=== PATIENT | male | born 1975 | race Caucasian/White ===

== ENCOUNTER 2016-11-18 06:23 | Inpatient (IN) | payer OTHER ==
[2016-11-18] MEDS ORDERED: ACETAMINOPHEN IV (For NPO) 1,000 MG in EMPTY BAG 1 BAG IVPB STA (06:44)
[2016-11-18] MEDS ORDERED: FAMOTIDINE 20 MG/2 ML VIAL IV STA (06:45)
[2016-11-18] MEDS ORDERED: ONDANSETRON 4 MG/2 ML VIAL IVP STA (06:45)
--- NOTE | 2016-11-18 06:47 | ED ---
General Adult HPI - General Source: patient, RN notes reviewed Mode of arrival: ambulatory Limitations: no limitations <Luther Gonzalez - Last Filed: 11/18/16 06:57> <Zaki Eric - Last Filed: 11/18/16 10:15> - General Chief complaint: Nausea/Vomiting/Diarrhea Stated complaint: Nausea,fever,diarrhea Time Seen by Provider: 11/18/16 06:41 - History of Present Illness Initial comments: Patient is a pleasant 41-year-old male presenting to the emergency Department with diarrhea. Onset of symptoms was around 2 days ago. Patient has had nausea with some dry heaves. Patient has only mild abdominal discomfort. Patient has had diarrhea approximate 4 times daily. Patient didnotice fever just prior to arrival. No history of chronic abdominal problems. Patient has had some myalgias. (Luther Gonzalez) - Related Data Home Medications Medication Instructions Recorded Confirmed Fexofenadine/Pseudoephedrine 1 tab PO BID PRN 11/18/16 11/18/16 [Lauren-D 12 Hour Tablet] Allergies Allergy/AdvReac Type Severity Reaction Status Date / Time No Known Allergies Allergy Verified 07/08/16 07:50 Review of Systems ROS Other: All systems not noted in ROS Statement are negative. Constitutional: Reports: fever, chills Eyes: Denies: eye pain ENT: Denies: ear pain Respiratory: Denies: cough Cardiovascular: Denies: chest pain Endocrine: Reports: fatigue Gastrointestinal: Reports: abdominal pain, nausea, vomiting, diarrhea Genitourinary: Denies: dysuria Musculoskeletal: Denies: back pain Skin: Denies: rash Neurological: Denies: headache <Luther Gonzalez - Last Filed: 11/18/16 06:57> ROS Other: All systems not noted in ROS Statement are negative. <Zaki Eirc - Last Filed: 11/18/16 10:15> ROS Statement: Those systems with pertinent positive or pertinent negative responses have been documented in the HPI. Past Medical History Past Medical History: Pneumonia, Seizure Disorder Additional Past Medical History / Comment(s): EPILEPSY CHILD-HAS'NT BEEN ON MEDS FOR SEIZURES SINCE AGE 11 OR 12. chronic etoh abuse, seizure related to alcohol withdrawal, pneumonia /SEPSIS IN 2013 WAS VENTILATED, PSORIASES, ADHD, .PANCREATITIS. History of Any Multi-Drug Resistant Organisms: None Reported Past Surgical History: Orthopedic Surgery Additional Past Surgical History / Comment(s): RIGHT ANKLE, PLATES AND SCREWS Past Anesthesia/Blood Transfusion Reactions: No Reported Reaction Past Psychological History: ADD/ADHD, Anxiety, Depression Smoking Status: Current every day smoker Past Alcohol Use History: None Reported Additional Past Alcohol Use History / Comment(s): STARTED SMOKING AGE 14 1PPD SMOKING CESSATION BOOKLET GIVEN TO PT. DRINKS 1 FIFTH OF WHISKEY PER DAY. Past Drug Use History: Marijuana - Past Family History Father Family Medical History: Myocardial Infarction ([place]) Additional Family Medical History / Comment(s): PULMOPNARY FIBROSIS AND HEART PROBLEMS Mother Family Medical History: Cancer Additional Family Medical History / Comment(s): SKIN CANCER, DEPRESSION. AGORAPHOBIA <Luther Gonzalez - Last Filed: 11/18/16 06:57> General Exam Limitations: no limitations General appearance: alert, in no apparent distress Head exam: Present: atraumatic Eye exam: Present: normal appearance, PERRL ENT exam: Present: normal oropharynx Neck exam: Present: normal inspection Respiratory exam: Present: normal lung sounds bilaterally Cardiovascular Exam: Present: regular rate, normal rhythm GI/Abdominal exam: Present: soft, tenderness (Mild diffuse tenderness), normal bowel sounds. Absent: distended, guarding, rebound, rigid, pulsatile mass Extremities exam: Present: normal inspection Neurological exam: Present: alert Psychiatric exam: Present: normal affect, normal mood Skin exam: Absent: rash <Luther Gonzalez - Last Filed: 11/18/16 06:57> Course <Luther Gonzalez - Last Filed: 11/18/16 06:57> <Zaki Eric - Last Filed: 11/18/16 10:15> Vital Signs 11/18/16 11/18/16 11/18/16 06:27 07:41 09:11 Temperature 101 F H 101.9 F H 98.5 F Pulse Rate 95 88 86 Respiratory 18 18 16 Rate Blood Pressure 137/81 135/74 115/68 O2 Sat by Pulse 98 99 98 Oximetry 11/18/16 10:02 Temperature Pulse Rate 80 Respiratory 15 Rate Blood Pressure 118/68 O2 Sat by Pulse 98 Oximetry - Reevaluation(s) Reevaluation #1: 11/18/16 06:[address] Eric. Computed tomography scan not ordered at this time secondary to minimal tenderness. (Luther Gonzalez) Reevaluation #2: 11/18/16 10:15 I did discuss the findings with the patient does admit to drinking chronically. (Zaki Eric) Medical Decision Making <Luther Gonzalez - Last Filed: 11/18/16 06:57> - Lab Data Result diagrams: 11/18/16 06:55 11/18/16 06:55 - Radiology Data Radiology results: report reviewed (I did review the imaging and report or is evidence of infiltrate in the right lower upper lung.), image reviewed <Zaki Eric - Last Filed: 11/18/16 10:15> - Medical Decision Making I did a long discussion with the patient regarding the findings he does have pancreatitis as well as pneumonia. He will be admitted I did discuss the case with Dr. Jean (Zaki Eric) - Lab Data Lab Results 11/18/16 11/18/16 11/18/16 Range/Units 06:55 06:55 06:55 WBC 1.9 L* (3.8-10.6) k/uL RBC 4.33 (4.30-5.90) m/uL Hgb 14.2 (13.0-17.5) gm/dL Hct 42.4 (39.0-53.0) % MCV 97.8 (80.0-100.0) fL MCH 32.7 (25.0-35.0) pg MCHC 33.5 (31.0-37.0) g/dL RDW 15.5 (11.5-15.5) % Plt Count 26 L* (150-450) k/uL Neutrophils % 72 % Lymphocytes % 12 % Monocytes % 12 % Eosinophils % 1 % Basophils % 0 % Neutrophils # 1.4 (1.3-7.7) k/uL Lymphocytes # 0.2 L (1.0-4.8) k/uL Monocytes # 0.2 (0-1.0) k/uL Eosinophils # 0.0 (0-0.7) k/uL Basophils # 0.0 (0-0.2) k/uL Manual Slide Review Performed Large Platelets Present RBC Morphology Normal PT (9.0-12.0) sec INR (<1.1) APTT (22.0-30.0) sec Sodium 129 L (137-145) mmol/L Potassium 4.2 (3.5-5.1) mmol/L Chloride 100 (98-107) mmol/L Carbon Dioxide 20 L (22-30) mmol/L Anion Gap 9 mmol/L BUN 9 (9-20) mg/dL Creatinine 0.62 L (0.66-1.25) mg/dL Est GFR (MDRD) Af Amer >60 (>60 ml/min/1.73 sqM) Est GFR (MDRD) Non-Af >60 (>60 ml/min/1.73 sqM) Glucose 116 H (74-99) mg/dL Plasma Lactic Acid Shine 1.6 (0.7-2.0) mmol/L Calcium 7.7 L (8.4-10.2) mg/dL Magnesium (1.6-2.3) mg/dL Total Bilirubin 1.9 H (0.2-1.3) mg/dL AST 209 H (17-59) U/L ALT 68 (21-72) U/L Alkaline Phosphatase 155 H (38-126) U/L Total Protein 8.1 (6.3-8.2) g/dL Albumin 3.3 L (3.5-5.0) g/dL Amylase (30-110) U/L Lipase (23-300) U/L Serum Alcohol mg/dL 11/18/16 11/18/16 Range/Units 06:55 08:40 WBC (3.8-10.6) k/uL RBC (4.30-5.90) m/uL Hgb (13.0-17.5) gm/dL Hct (39.0-53.0) % MCV (80.0-100.0) fL MCH (25.0-35.0) pg MCHC (31.0-37.0) g/dL RDW (11.5-15.5) % Plt Count (150-450) k/uL Neutrophils % % Lymphocytes % % Monocytes % % Eosinophils % % Basophils % % Neutrophils # (1.3-7.7) k/uL Lymphocytes # (1.0-4.8) k/uL Monocytes # (0-1.0) k/uL Eosinophils # (0-0.7) k/uL Basophils # (0-0.2) k/uL Manual Slide Review Large Platelets RBC Morphology PT 15.5 H (9.0-12.0) sec INR 1.6 (<1.1) APTT 31.9 H (22.0-30.0) sec Sodium (137-145) mmol/L Potassium (3.5-5.1) mmol/L Chloride (98-107) mmol/L Carbon Dioxide (22-30) mmol/L Anion Gap mmol/L BUN (9-20) mg/dL Creatinine (0.66-1.25) mg/dL Est GFR (MDRD) Af Amer (>60 ml/min/1.73 sqM) Est GFR (MDRD) Non-Af (>60 ml/min/1.73 sqM) Glucose (74-99) mg/dL Plasma Lactic Acid Shine (0.7-2.0) mmol/L Calcium (8.4-10.2) mg/dL Magnesium 1.6 (1.6-2.3) mg/dL Total Bilirubin (0.2-1.3) mg/dL AST (17-59) U/L ALT (21-72) U/L Alkaline Phosphatase (38-126) U/L Total Protein (6.3-8.2) g/dL Albumin (3.5-5.0) g/dL Amylase 107 (30-110) U/L Lipase 701 H (23-300) U/L Serum Alcohol <10 mg/dL Disposition <Luther Gonzalez - Last Filed: 11/18/16 06:57> <Zaki Eric - Last Filed: 11/18/16 10:15> Clinical Impression: Acute pancreatitis, Pneumonia, Neutropenia, Thrombocytopenia, Alcohol dependence, Gastritis Disposition: ADMITTED IP TO THIS [facility] Condition: Stable
[2016-11-18] MEDS: SODIUM CHLORIDE 0.9% 500 ML IV SCH ×3 (07:07→10:01)
[2016-11-18 07:21] LABS: Basophils % (A) 0 %; CH 32.9; CHCM 33.8; Eosinophils % (A) 1 %; HCT 42.4 % (39.0-53.0); HDW 2.59; HGB 14.2 gm/dL (13.0-17.5); Luc # (Auto) 0.06; Luc % (Auto) 3; Lymphocytes # (A) 0.2 k/uL (1.0-4.8); Lymphocytes % (A) 12 %; MCH 32.7 pg (25.0-35.0); MCHC 33.5 g/dL (31.0-37.0); MCV 97.8 fL (80.0-100.0); Mean Platelet Volume 9.4; Monocytes # (A) 0.2 k/uL (0-1.0); Monocytes % (A) 12 %; Neutrophils # (A) 1.4 k/uL (1.3-7.7); Neutrophils % (A) 72 %; RBC 4.33 m/uL (4.30-5.90); RDW 15.5 % (11.5-15.5); WBC (Perox) 1.82
[2016-11-18 07:24] LABS: ALT 68 U/L (21-72); AST 209 U/L (17-59); Alkaline Phosphatase 155 U/L (38-126); Anion Gap 9 mmol/L; Blood Urea Nitrogen 9 mg/dL (9-20); Calcium 7.7 mg/dL (8.4-10.2); Carbon Dioxide 20 mmol/L (22-30); Chloride 100 mmol/L (98-107); Glucose 116 mg/dL (74-99); INR 1.6 (<1.1); Non-African American GFR(MDRD) >60 (>60 ml/min/1.73 sqM); Partial Thromboplastin Time 31.9 sec (22.0-30.0); Potassium 4.2 mmol/L (3.5-5.1); Prothrombin Time 15.5 sec (9.0-12.0); Sodium 129 mmol/L (137-145); Total Bilirubin 1.9 mg/dL (0.2-1.3); Total Protein 8.1 g/dL (6.3-8.2)
[2016-11-18 07:33] LABS: WBC 1.9 k/uL (3.8-10.6)
[2016-11-18 07:35] LABS: Large Platelets Present; Manual Review Performed; RBC Morphology Normal
--- NOTE | 2016-11-18 07:55 | XR ---
EXAMINATION TYPE: XR chest 2V DATE OF EXAM: 11/18/2016 7:17 AM COMPARISON: Prior chest x-ray March 11, 2016. HISTORY: Cough. TECHNIQUE: Frontal and lateral views of the chest are obtained. FINDINGS: There is suspicious airspace opacity in the anterior inferior right upper lobe confirmed o n 2 views. Left lung is clear no pleural effusion or pneumothorax is seen bilaterally.. The cardiac silhouette size is mildly enlarged on current study less prominent than prior. The osseous structur es are intact. IMPRESSION: New suspicious right upper lobe anterior inferior pneumonic infiltrate.
--- NOTE | 2016-11-18 07:59 | XR ---
EXAMINATION TYPE: XR abdomen 1V DATE OF EXAM: 11/18/2016 7:17 AM CLINICAL HISTORY: Abdominal pain. TECHNIQUE: 2 upright KUB images of the abdomen are obtained. COMPARISON: Abdominal x-ray December 24, 2015. FINDINGS: There is some paucity of small bowel gas. Visualized gas is seen in nondistended stomach an d predominantly nondistended colonic loops. Rounded densities right upper quadrant are of uncertain e tiology, possible gallstones. No pneumoperitoneum is present. Osseous structures are intact. IMPRESSION: Overall nonspecific likely nonobstructive bowel gas pattern.
[2016-11-18 09:02] LABS: Alcohol <10 mg/dL; Amylase 107 U/L (30-110); Magnesium 1.6 mg/dL (1.6-2.3)
[2016-11-18] MEDS ORDERED: PIPERACILLIN-TAZOBACTAM 3.375 GM in DEXTROSE/WATER 1 50ML.BAG IVPB STA (09:29)
[2016-11-18] MEDS ORDERED: PNEUMONIA PROTOCOL UTILIZED 1 EACH MISC PO PRN (10:15)
[2016-11-18] MEDS ORDERED: LEVOFLOXACIN 750MG-D5W PMX 750 MG in DEXTROSE/WATER 1 150ML.BAG IVPB STA (10:15)
[2016-11-18] MEDS ORDERED: THIAMINE 100 MG/ML 2 ML VIAL IM STA (10:18)
[2016-11-18] MEDS ORDERED: NICOTINE 21MG/24HR PATCH TRANSDERM STA (10:19)
[2016-11-18] MEDS ORDERED: SODIUM CHLORIDE 0.9% 1,000 ML IV STA (10:20)
[2016-11-18 11:07] LABS: Appearance,Urine Clear (Clear); Bilirubin,Urine Negative (Negative); Glucose,Urine (UA) Negative (Negative); Ketones,Urine Negative (Negative); Leukocyte Esterase,Urine Negative (Negative); Nitrite,Urine Negative (Negative); Protein,Urine Negative (Negative); Specific Gravity,Urine 1.013 (1.001-1.035); UA Billing (MACRO vs. MICRO) CHEM
[2016-11-18] MEDS: LORazepam 2 MG/ML SYRINGE IV PRN (13:50)
[2016-11-18] MEDS ORDERED: traMADol 50 MG TAB PO PRN (14:52)
[2016-11-18] MEDS: AZITHROMYCIN 500 MG TAB PO SCH (15:22)
[2016-11-18] MEDS: HYDROcodone/APAP 7.5-325MG 1 EACH TAB PO PRN (15:22)
[2016-11-18] MEDS: SODIUM CHLORIDE 0.9% 1,000 ML IV SCH ×2 (15:24→22:49)
[2016-11-18] MEDS ORDERED: PIPERACILLIN-TAZOBACTAM 3.375 GM in DEXTROSE/WATER 1 50ML.BAG IVPB SCH (16:00)
[2016-11-18] MEDS: cefTRIAXone 2,000 MG in SODIUM CHLORIDE 0.9% 100 ML IVPB SCH (16:19)
[2016-11-18] MEDS: THIAMINE 100 MG TAB PO SCH (16:19)
[2016-11-18] MEDS: ONDANSETRON 4 MG/2 ML VIAL IVP PRN (16:23)
--- NOTE | 2016-11-18 19:05 | HP ---
DATE OF ADMISSION: Patient is a 41-year-old gentleman who came in with complaints of cough with yellowish sputum production that has been going on for about 3 days with fever and chills along with nausea, dry heaving and abdominal pain in the epigastric area. Patient is an alcoholic; still drinks about 6 beers or more a day. Patient is pancytopenic because of excessive alcohol use. Minimally low sodium. Patient's lipase is elevated, but it is a nonspecific elevation. I do not believe patient has pancreatitis. Patient has epigastric abdominal sharp pain consistent with alcoholic gastritis. Patient was found to have right middle lobe pneumonia. Patient was complaining of some shortness of breath as well with pleuritic chest pain, sharp, about 9/10 in severity; worsens with inspiration on the right side. Patient was found to have right middle lobe pneumonia. REVIEW OF SYSTEMS: CONSTITUTIONAL: No fever, no malaise, no fatigue. HEENT: No recent visual problems or hearing problems. Denied any sore throat. CARDIOVASCULAR: No chest pain, orthopnea, PND, no palpitations, no syncope. PULMONARY: As described in HPI. GASTROINTESTINAL: No diarrhea, no nausea, no vomiting, no abdominal pain. Normoactive bowel sounds. NEUROLOGICAL: No headaches, no weakness, no numbness. HEMATOLOGICAL: Denies any bleeding or petechiae. GENITOURINARY: Denies any burning micturition, frequency, or urgency. MUSCULOSKELETAL/RHEUMATOLOGICAL: Denies any joint pain, swelling, or any muscle pain. ENDOCRINE: Denies any polyuria or polydipsia. The rest of the 14 point review of systems is negative. Home medications include fexofenadine and pseudoephedrine. Past medical history is significant for: 1. Alcohol withdrawal seizures. 2. Pneumonias in the past. 3. Orthopedic surgery. 4. ADD. 5. Anxiety. 6. Depression. Patient continues to smoke a pack per day; has been smoking since age of 14. Alcohol use as mentioned above. One fifth of whiskey along with 6 beers a day. As per the patient, he quit drinking a couple days ago without any withdrawals because he is feeling sick. Occasionally uses marijuana. FAMILY HISTORY: Father had myocardial infarction, pulmonary fibrosis and heart problems. Mother had cancer. PHYSICAL EXAMINATION: VITAL SIGNS: Temperature 98.7 pulse of 82, respiratory rate of 16. Blood pressure is 114/70. Saturating at 98% on room air. GENERAL: The patient is alert and oriented x3, not in any acute distress. Well developed, well nourished. HEENT: Pupils are round and equally reacting to light. EOMI. No scleral icterus. No conjunctival pallor. Normocephalic, atraumatic. No pharyngeal erythema. No thyromegaly. CARDIOVASCULAR: S1 and S2 present. No murmurs, rubs, or gallops. PULMONARY: Crackles in the right lower lung bases with bronchophony and egophony in the right inferoposterior lung lopez. ABDOMEN: Soft, nontender, nondistended, normoactive bowel sounds. No palpable organomegaly. MUSCULOSKELETAL: No joint swelling or deformity. EXTREMITIES: No cyanosis, clubbing, or pedal edema. NEUROLOGICAL: Gross neurological examination did not reveal any focal deficits. SKIN: No rashes. LABORATORY DATA: CBC and comprehensive metabolic profile are abnormal for low WBC count of 1900, platelet count of 26,000. Patient is probably anemic as well. Although patient is hemo-concentrated, I believe, at this point of time, because of which we are not appreciating his anemia. I believe his hemoglobin is going to drop tomorrow. Chest x-ray as mentioned above. ASSESSMENT AND PLAN: 1. Sepsis secondary to right middle lobe pneumonia. I do not believe patient will need to be treated her healthcare-associated pneumonia. Patient most probably has pneumococcal pneumonia. His previous antibiotics Zosyn and levofloxacin will be discontinued. Patient will be started on ceftriaxone and azithromycin. Sputum cultures will be obtained. 2. Mild nonspecific elevation of lipase. I do not believe patient has pancreatitis at this point of time. Patient will be started on diet. 3. Acute alcoholic hepatitis with mildly elevated bilirubin and AST. 4. Alcohol abuse. Counseling was provided. 5. Alcohol withdrawal. Patient does not have any withdrawals at this point of time. My suspicion is low that he is going to have withdrawals, but we will watch for any withdrawals. Thiamine, multivitamin supplementation. Patient will be started on Protonix IV b.i.d. for his gastritis. Patient will be started on IV fluids at 125 mL per hour. 6. Pancytopenia secondary to bone marrow suppression from chronic alcoholism. Counseling was provided regarding that. Part of this leukopenia is probably because of sepsis as well. Patient has no primary care physician.
[2016-11-18] MEDS: PANTOPRAZOLE 40 MG/10 ML VIAL IVP SCH (20:38)
[2016-11-18] MEDS ORDERED: FAMOTIDINE 20 MG TAB PO SCH (21:00)
[2016-11-19] MEDS: ONDANSETRON 4 MG/2 ML VIAL IVP PRN (02:55)
[2016-11-19] MEDS: HYDROcodone/APAP 7.5-325MG 1 EACH TAB PO PRN ×3 (02:55→22:27)
[2016-11-19] MEDS: LORazepam 2 MG/ML SYRINGE IV PRN (07:03)
[2016-11-19] MEDS: SODIUM CHLORIDE 0.9% 1,000 ML IV SCH (07:06)
--- NOTE | 2016-11-19 08:20 | XR ---
EXAMINATION TYPE: XR chest 2V DATE OF EXAM: 11/19/2016 6:39 AM COMPARISON: Prior chest x-ray 18 November 2016 HISTORY: Fever, abnormal chest x-ray, pneumonia TECHNIQUE: Frontal and lateral views of the chest are obtained. FINDINGS: Airspace disease persists in the right upper lobe. Heart size is borderline increased. Min imal bandlike area of increased density present bilaterally in the left lower chest may reflect atele ctasis rather than airspace disease. No pneumothorax or pleural effusion. Pulmonary vascularity and h azra are stable. IMPRESSION: Correlate for right upper lobe pneumonia. Additional findings above, follow-up to resolu tion.
[2016-11-19] MEDS: PANTOPRAZOLE 40 MG/10 ML VIAL IVP SCH ×2 (08:21→22:15)
[2016-11-19] MEDS: AZITHROMYCIN 500 MG TAB PO SCH (08:21)
[2016-11-19] MEDS: cefTRIAXone 2,000 MG in SODIUM CHLORIDE 0.9% 100 ML IVPB SCH (08:22)
[2016-11-19] MEDS ORDERED: LEVOFLOXACIN 750 MG TAB PO SCH (11:00)
[2016-11-19] MEDS: THIAMINE 100 MG TAB PO SCH ×2 (11:19→16:23)
[2016-11-19 13:11] LABS: ALT 59 U/L (21-72); AST 165 U/L (17-59); Alkaline Phosphatase 115 U/L (38-126); Anion Gap 7 mmol/L; Aty Lym Flag Slight; Blood Urea Nitrogen 8 mg/dL (9-20); CH 32.5; CHCM 32.8; Calcium 7.1 mg/dL (8.4-10.2); Carbon Dioxide 16 mmol/L (22-30); Chloride 104 mmol/L (98-107); Glucose 104 mg/dL (74-99); HCT 41.5 % (39.0-53.0); HDW 2.67; HGB 13.2 gm/dL (13.0-17.5); MCH 31.8 pg (25.0-35.0); MCHC 31.9 g/dL (31.0-37.0); MCV 99.6 fL (80.0-100.0); Macrocytosis Slight; Magnesium 1.6 mg/dL (1.6-2.3); Mean Platelet Volume 9.9; Non-African American GFR(MDRD) >60 (>60 ml/min/1.73 sqM); RBC 4.17 m/uL (4.30-5.90); RDW 15.6 % (11.5-15.5); Sodium 127 mmol/L (137-145); Total Bilirubin 1.5 mg/dL (0.2-1.3); Total Protein 6.8 g/dL (6.3-8.2); WBC (Perox) 1.37
[2016-11-19 13:51] LABS: Add Differential Manual Differential
[2016-11-19 14:00] LABS: Manual Review Performed; Nucleated Red Blood Cells 0 /100 WBC (0-0); Total Cells Counted 100
[2016-11-19 16:13] LABS: WBC 1.3 k/uL (3.8-10.6)
--- NOTE | 2016-11-19 17:55 | P.PN ---
Subjective Date of service 11/19/2016. Progress note being dictated for Dr. Madison. Interval history: This 41-year-old gentleman admitted with sepsis, right middle lobe pneumonia-possibly bilateral, acute alcoholic hepatitis, alcohol withdrawal , pancytopenia, pancreatitis and multiple other medical issues. Continues on IV fluid hydration, antibiotics. Chest x-ray noted. Labs pending. Maintained on CIWA protocol with no seizure activity/DTs reported. Poor diet intake ,no nausea, vomiting reported. Mostly nonproductive cough with minimal sputum production. Objective - Vital Signs Vital signs: Vital Signs Temp 98.4 F 11/19/16 07:00 Pulse 80 11/19/16 07:00 Resp 20 11/19/16 07:00 BP 122/76 11/19/16 07:00 Pulse Ox 98 11/19/16 07:00 Intake & Output 11/18/16 11/19/16 11/19/16 18:59 06:59 18:59 Intake Total 2000 540 Balance 2000 540 Intake: Amount of Fluid Infused ( 1500 ml) Oral 500 540 Other: Voiding Method Toilet # Voids 1 # Bowel Movements 1 - Exam PHYSICAL EXAM: VITAL SIGNS: As above GENERAL: [Well-nourished, Sitting up in bed, tired appearing] HEENT: [Pupils equal conjunctiva normal.] NECK: [Supple, no JVD] RESPIRATORY EFFORT:[Mildly increased] LUNGS: [Bibasilar crackles, greater on the left, bronchophony the right lung] CARDIOVASCULAR regular S1 and S2, no murmurs rubs or gallops, no edema GI: [Abdomen soft, mild diffuse tenderness, left lower quadrant pain, positive bowel sounds.] PSYCH: [Alert and oriented -3, mood and affect normal.] NEURO: [No focal deficits, moves all 4 extremities, strength and sensation grossly intact.] - Labs CBC & Chem 7: 11/19/16 12:29 11/19/16 12:29 Labs: Microbiology - Last 24 Hours (Table) 11/18/16 10:55 Urine Culture - Preliminary Urine,Voided Assessment and Plan Plan: 1. [Sepsis secondary to right middle, possibly bilateral pnumonia]. 2. [Atelectasis]. 3. [Mild nonspecific elevation of lipase, doubt pancreatitis at this time, in a patient with history of pancreatitis]. 4. [Acute alcoholic hepatitis with mildly elevated bilirubin and AST in a patient with history of liver cirrhosis]. 5. [Alcohol abuse,alcohol dependence]. 6. [Pancytopenia secondary to bone marrow suppression related to chronic alcoholism]. 7. Hyponatremia]. 8. ADHD, ADD 9. History of nicotine dependence Plan: Continue on current medication regime , antibiotics,CIWA protocol, nebulized bronchodilators, monitoring and symptomatic treatment. Aggressive pulmonary toileting. Increase ambulation as tolerated. Continue on IV fluid hydration, as patient's appetite remains poor. Labs pending. Social work consult as patient continues to be high risk for readmissions and assistance with alcohol rehab. The impression and plan of care has been dictated as directed. : I performed a H&P examination of this patient and discussed the same with the dictator. I agree with the dictator's note. Any additional findings/opinions/ etc. will be noted.
[2016-11-20] MEDS: HYDROcodone/APAP 7.5-325MG 1 EACH TAB PO PRN ×3 (05:42→17:14)
[2016-11-20 08:51] LABS: Aty Lym Flag Marked; CH 32.6; CHCM 33.2; HCT 41.1 % (39.0-53.0); HDW 2.69; HGB 13.2 gm/dL (13.0-17.5); MCH 31.7 pg (25.0-35.0); MCHC 32.2 g/dL (31.0-37.0); MCV 98.5 fL (80.0-100.0); Macrocytosis Slight; Mean Platelet Volume 9.6; RBC 4.17 m/uL (4.30-5.90); RDW 15.5 % (11.5-15.5); WBC (Perox) 1.82
[2016-11-20 08:57] LABS: INR 1.6 (<1.1); Prothrombin Time 15.4 sec (9.0-12.0)
[2016-11-20 08:58] LABS: WBC 1.7 k/uL (3.8-10.6)
[2016-11-20 09:09] LABS: Anion Gap 8 mmol/L; Blood Urea Nitrogen 8 mg/dL (9-20); Calcium 7.3 mg/dL (8.4-10.2); Carbon Dioxide 17 mmol/L (22-30); Chloride 101 mmol/L (98-107); Glucose 95 mg/dL (74-99); Non-African American GFR(MDRD) >60 (>60 ml/min/1.73 sqM); Potassium 4.3 mmol/L (3.5-5.1); Sodium 126 mmol/L (137-145)
[2016-11-20] MEDS: cefTRIAXone 2,000 MG in SODIUM CHLORIDE 0.9% 100 ML IVPB SCH (09:25)
[2016-11-20] MEDS: AZITHROMYCIN 500 MG TAB PO SCH (09:26)
[2016-11-20] MEDS: PANTOPRAZOLE 40 MG/10 ML VIAL IVP SCH (09:26)
--- NOTE | 2016-11-20 10:03 | PN ---
DATE OF SERVICE: 11/19/2016 This 41-year-old gentleman who was admitted with sepsis secondary to right middle lobe pneumonia is being closely monitored. I have seen and evaluated the patient along with the nurse practitioner. Please refer to the nurse practitioner notes and impression documented as a scribe for further information and prognosis.
[2016-11-20 10:15] LABS: Add Differential Manual Differential
[2016-11-20 10:24] LABS: Nucleated Red Blood Cells 0 /100 WBC (0-0); Total Cells Counted 100
[2016-11-20] MEDS: MULTIVITAMINS, THERA 1 EACH TAB PO SCH (11:18)
[2016-11-20] MEDS: THIAMINE 100 MG TAB PO SCH ×2 (11:18→16:37)
[2016-11-20] MEDS: FOLIC ACID 1 MG TAB PO SCH (11:19)
[2016-11-20] MEDS ORDERED: LORATADINE-PSEUDOEPH 5-120 MG 1 EACH TAB.ER.12H PO PRN (11:54)
[2016-11-20] MEDS ORDERED: ACETAMINOPHEN TAB 325 MG TAB PO PRN (12:23)
[2016-11-20] MEDS: PIPERACILLIN-TAZOBACTAM 3.375 GM in DEXTROSE/WATER 1 50ML.BAG IVPB SCH (14:03)
--- NOTE | 2016-11-20 15:14 | P.CNPUL ---
History of Present Illness Consult date: 11/20/16 Requesting physician: Estephanie Madison Reason for consult: abnormal CXR/CT (Right middle lobe pneumonia) Chief complaint: Shortness of breath, cough and congestion History of present illness: This is a pleasant 41-year-old gentleman who has no current primary care physician. He has a history of seizure disorders and did have epilepsy as a child but has not been on any medications as an adult. Has has a history of alcoholism and seizure related alcohol withdrawals in the past. He had trach as much as a fifth of whiskey a day but states he is down to just 6 beers daily. He's had a history of pancreatitis, ADHD, psoriasis. The patient did have significant pneumonia requiring intubation mechanical ventilation with sepsis back in 2012. We have seen the patient at that time apparently. Since then he denied having any recurrent episodes of pneumonia or hospitalizations. He has a current smoker and has been smoking since age of 14. He has not been on any inhalers at home. No oxygen. He presented here on 11/18/2016 with complaints of increasing shortness of breath cough and congestion. He also had some nausea without vomiting, abdominal discomfort and diarrhea. His chest x- ray does show evidence of a right middle lobe pneumonia. There is also noted increased density/atelectasis in the left lung base. Sputum culture is pending. Blood cultures reveal no growth after 48 hours. Urine culture reveals no growth. His AST was elevated at 209. His lipase is elevated at 836. He also has pancytopenia current WBC 1.7 platelet count 22,000 and he's been treated with Zosyn and azithromycin. He is hyponatremic with a current sodium of 126. He is seen today in consultation. He is awake and alert in no acute distress. He states he is breathing easier today as compared to yesterday. He continues with a loose productive cough of yellow sputum. He remains febrile currently at 101.3. He is maintaining good O2 saturations in the upper 90s on room air. Review of Systems 14 point review of system was conducted. All negative other than mentioned in HPI. Past Medical History Past Medical History: Pneumonia, Seizure Disorder Additional Past Medical History / Comment(s): EPILEPSY CHILD-HAS'NT BEEN ON MEDS FOR SEIZURES SINCE AGE 11 OR 12. chronic etoh abuse, seizure related to alcohol withdrawal as well as delirium tremors, pneumonia /SEPSIS IN 2012 WAS VENTILATED, PSORIASES, PANCREATITIS. History of Any Multi-Drug Resistant Organisms: None Reported Past Surgical History: Orthopedic Surgery Additional Past Surgical History / Comment(s): RIGHT ANKLE- PLATES AND SCREWS, gastro tube, tracheostomy. Past Anesthesia/Blood Transfusion Reactions: No Reported Reaction Past Psychological History: ADD/ADHD, Anxiety, Depression Additional Psychological History / Comment(s): Pt resides with his spouse. He is independent. Smoking Status: Current every day smoker Past Alcohol Use History: None Reported Additional Past Alcohol Use History / Comment(s): STARTED SMOKING AGE 14 1/2 [employer]. Pt now down to drinking 6 beers in a day. Last drank 11/16/16 before feeling ill. Past Drug Use History: Marijuana Additional Drug Use History / Comment(s): Pt states he will smoke marijuana on occasion but not daily. - Past Family History Father Family Medical History: Myocardial Infarction (PR) Additional Family Medical History / Comment(s): PULMOPNARY FIBROSIS AND HEART PROBLEMS. Father at the age of 65yrs from multiple medical problems. Mother Family Medical History: Cancer Additional Family Medical History / Comment(s): SKIN CANCER, DEPRESSION. AGORAPHOBIA. Mother is 63 yrs old. Medications and Allergies Home Medications Medication Instructions Recorded Confirmed Type Fexofenadine/Pseudoephedrine 1 tab PO BID PRN 11/18/16 11/18/16 History [Lauren-D 12 Hour Tablet] Allergies Allergy/AdvReac Type Severity Reaction Status Date / Time No Known Allergies Allergy Verified 07/08/16 07:50 Physical Exam Vitals: Vital Signs Temp Pulse Resp BP Pulse Ox 11/20/16 11:24 101.3 F H 11/20/16 07:00 102.1 F H 91 20 127/74 96 11/19/16 23:56 19 11/19/16 23:30 100.7 F H 11/19/16 22:32 101.6 F H 86 19 127/81 98 11/19/16 18:58 88 18 11/19/16 17:06 100.8 F H 11/19/16 15:22 100.0 F H Intake and Output 11/19/16 11/20/16 11/20/16 22:59 06:59 14:59 Intake Total 100 Output Total 400 Balance -300 Intake: IV 100 cefTRIAXone 2,000 mg In 100 Sodium Chloride 0.9% 100 ml @ 100 mls/hr IVPB Q24HR [facility] Rx#:[id number] Output: Urine 400 Other: Voiding Method Toilet Toilet # Voids 1 2 GENERAL EXAM: Alert, active, comfortable in no apparent distress. HEAD: Normocephalic. EYES: Normal reaction of pupils, equal size. NOSE: Clear with pink turbinates. THROAT: No erythema or exudates. NECK: No masses, no JVD. CHEST: No chest wall deformity. LUNGS: Equal air entry with rhonchi in the right mid lung. CVS: S1 and S2 normal with no audible murmurs, regular rhythm. ABDOMEN: No hepatosplenomegaly, normal bowel sounds, no guarding or rigidity. SPINE: No scoliosis or deformity SKIN: No rashes CENTRAL NERVOUS SYSTEM: No focal deficits, tone is normal in all 4 extremities. Extremities: There is no peripheral edema. No clubbing, no cyanosis. Peripheral pulses are intact. Results - Laboratory Findings CBC and BMP: 11/20/16 07:35 11/20/16 07:35 PT/INR, D-dimer PT 15.4 sec (9.0-12.0) H 11/20/16 07:35 INR 1.6 (<1.1) 11/20/16 07:35 Abnormal lab findings: Abnormal Labs 11/19/16 11/19/16 11/20/16 12:29 12:29 07:35 WBC 1.3 L* 1.7 L* RBC 4.17 L 4.17 L RDW 15.6 H Plt Count 19 L* 22 L* Neutrophils # (Manual) 1.0 L 1.0 L Lymphocytes # (Manual) 0.2 L 0.5 L PT Sodium 127 L Carbon Dioxide 16 L BUN 8 L Creatinine 0.50 L Glucose 104 H Calcium 7.1 L Total Bilirubin 1.5 H AST 165 H Albumin 2.5 L Lipase 836 H 11/20/16 11/20/16 07:35 07:35 WBC RBC RDW Plt Count Neutrophils # (Manual) Lymphocytes # (Manual) PT 15.4 H Sodium 126 L Carbon Dioxide 17 L BUN 8 L Creatinine 0.55 L Glucose Calcium 7.3 L Total Bilirubin AST Albumin Lipase - Diagnostic Findings Chest x-ray: image reviewed (Right middle lobe pneumonia) Assessment and Plan Plan: Impression: #1 Dyspnea, multifactorial, secondary to a right middle lobe pneumonia suspect community-acquired. Cannot rule out aspiration pneumonia on as the patient utilizes excessive alcohol daily. Also possible exacerbation of suspected chronic obstructive pulmonary disease with chronic and ongoing nicotine addiction. #2 Chronic and ongoing tobacco dependence. #3 Chronic and ongoing alcoholism. #4 Pancytopenia secondary to alcoholic liver disease. #5 Elevated liver enzymes secondary to alcoholism. #6 Hyponatremia secondary to excessive alcohol intake. #7 History of ventilatory dependent respiratory failure secondary to pneumonia// sepsis in 2013. #8 History of ADD. #9 Pancreatitis, current lipase 836. Plan: The patient was seen and evaluated by Dr. Leigh. His chest x-ray and labs were reviewed. He does have a right mid lung pneumonia. He may benefit from bronchoscopy to rule out right middle lobe syndrome if his chest x-ray does not clear with current antibiotics. We'll continue with the current medications. We'll repeat his chest x-ray and labs in the a.m. The patient does remain in CIWA protocol and will continue to observe for signs of delirium tremens. He remains in seizure precautions as well. He is educated regarding the importance of complete smoking cessation as well as alcohol cessation. We will contact continue to follow him closely in make further recommendations based on his clinical status.
[2016-11-20] MEDS ORDERED: IPRATROPIUM-ALBUTEROL 3 ML NEB INHALATION PRN (15:46)
[2016-11-20] MEDS: methylPREDNISolone SOD SUCCI 40 MG/ML 1 ML VIAL IV SCH (16:36)
[2016-11-20] MEDS: PANTOPRAZOLE 40 MG TABLET PO SCH (16:42)
[2016-11-20 16:57] LABS: Hemoglobin A1C 4.6 % (4.2-6.1)
[2016-11-20 17:33] LABS: Glucose,Whole Blood 90 mg/dL (75-99)
[2016-11-20] MEDS: INSULIN LISPRO (humaLOG) 300 UNIT/3 ML VIAL SQ SCH ×2 (17:34→22:00)
[2016-11-20] MEDS ORDERED: INFLUENZA VACCINE (3YR+) 60 MCG/0.5 ML SYRINGE IM ONE (18:06)
[2016-11-20] MEDS: SYMBICORT 160-4.5 MCG INHALER INHALATION SCH (19:51)
--- NOTE | 2016-11-20 20:39 | PN ---
DATE OF SERVICE: 11/20/2016 This 41-year-old gentleman who was admitted with possibly right middle lobe pneumonia, possibly community-acquired. Patient also had a possibility of aspiration pneumonia. The patient running fever yesterday, not responding to antibiotics. The white count was also low with leukopenia and Bicytopenia with platelet 22 which could be secondary to alcohol as well. Sodium is 126. Antibiotics have been change and Dr. Leigh also has been consulted. Past medical history reviewed. REVIEW OF SYSTEMS: CARDIOVASCULAR: No angina. RESPIRATORY: As mentioned earlier. GASTROINTESTINAL: As mentioned earlier. : No dysuria. Nervous system: No numbness, weakness. Current medications are reviewed and include: 1. Tylenol 650 q.6h p.r.n. 2. Ozone 7.5 q6h. 3. DuoNeb q.i.d. and p.r.n. 4. Zithromax 500 mg daily. 5. Symbicort 160/4.5 two puffs b.i.d. 6. Folic acid 1 mg daily. 7. Humalog. 8. Claritin-D. 9. Ativan. 10. Solu-Medrol 40 mg IV q8h. 11. Multivitamins one p.o. daily. 12. Zofran. 13. Protonix. 14. Zosyn. PHYSICAL EXAMINATION: Patient is alert and oriented times three. Pulse 79, blood pressure 103/74, respirations 20, temperature 101.3, pulse ox 94% on room air. HEENT: Conjunctivae normal. Oral mucosa moist. NECK: No jugular venous distention. No carotid bruit. No lymph node enlargement. CARDIOVASCULAR: S1, S2 muffled. No S3, no S4. RESPIRATORY: Breath sounds diminished at the bases. A few scattered rhonchi and crackles. Expiratory wheezing also present. ABDOMEN: Soft, nontender. No mass palpable. LEGS: No edema. No swelling. Nervous system: Higher functions as mentioned earlier. Moves all four limbs. No focal deficits. LYMPHATICS: No lymph nodes palpable in the neck, axillae or groin. SKIN: no ulcer, rash or bleeding. Labs: WBC is 1.7, hemoglobin 13.2, platelets 22. INR is 1.6. Sodium is 126, total bili is 1.3, AST is 165, calcium 7.3. ASSESSMENT: 1. Right middle lobe pneumonia, possibly aspiration with possible sepsis, present on admission with continued fever. 2. Chronic obstructive pulmonary disease, acute exacerbation. 3. History of nicotine dependence. 4. Atelectasis. 5. Mild nonspecific elevation of lipase with a history of chronic pancreatitis. 6. History of alcoholic hepatitis. 7. History of alcohol abuse. 8. History of Bicytopenia secondary from alcohol. 9. Hypernatremia 10. Attention deficit disorder/attention deficit hyperactivity disorder. 11. History of nicotine dependence. RECOMMENDATIONS AND DISCUSSION: In this 41-year-old gentleman who presented with multiple complex medical issues, we will monitor the patient closely, continue the current medications, continue with symptomatic treatment as mentioned earlier. Continue with the Zosyn. Repeat labs. Cultures. Pulmonary consultation with Dr. Leigh. DVT prophylaxis. Guarded prognosis because of multiple complex medical issues. Discussed with the patient who understands and agrees. Further recommendations to follow.
[2016-11-20 21:45] LABS: Glucose,Whole Blood 113 mg/dL (75-99)
[2016-11-21] MEDS: methylPREDNISolone SOD SUCCI 40 MG/ML 1 ML VIAL IV SCH ×4 (00:35→23:12)
[2016-11-21] MEDS: PIPERACILLIN-TAZOBACTAM 3.375 GM in DEXTROSE/WATER 1 50ML.BAG IVPB SCH ×5 (00:39→23:12)
[2016-11-21] MEDS: SYMBICORT 160-4.5 MCG INHALER INHALATION SCH ×2 (07:16→19:27)
[2016-11-21 07:17] LABS: Glucose,Whole Blood 148 mg/dL (75-99)
[2016-11-21 08:49] LABS: Aty Lym Flag Marked; CH 31.8; CHCM 31.1; HCT 48.5 % (39.0-53.0); HDW 2.73; HGB 15.3 gm/dL (13.0-17.5); Hypochromasia Slight; MCH 32.3 pg (25.0-35.0); MCHC 31.4 g/dL (31.0-37.0); MCV 102.6 fL (80.0-100.0); Macrocytosis Slight; RBC 4.73 m/uL (4.30-5.90); RDW 15.4 % (11.5-15.5); WBC (Perox) 1.93
[2016-11-21] MEDS: AZITHROMYCIN 500 MG TAB PO SCH (08:49)
[2016-11-21] MEDS: PANTOPRAZOLE 40 MG TABLET PO SCH ×2 (08:49→16:49)
[2016-11-21] MEDS: INSULIN LISPRO (humaLOG) 300 UNIT/3 ML VIAL SQ SCH ×4 (08:49→21:56)
[2016-11-21] MEDS: HYDROcodone/APAP 7.5-325MG 1 EACH TAB PO PRN (08:50)
[2016-11-21 08:56] LABS: INR 1.6 (<1.1); Prothrombin Time 15.9 sec (9.0-12.0)
[2016-11-21 09:12] LABS: Anion Gap 8 mmol/L; Blood Urea Nitrogen 10 mg/dL (9-20); Calcium 7.5 mg/dL (8.4-10.2); Carbon Dioxide 17 mmol/L (22-30); Chloride 103 mmol/L (98-107); Glucose 198 mg/dL (74-99); Non-African American GFR(MDRD) >60 (>60 ml/min/1.73 sqM); Potassium 4.1 mmol/L (3.5-5.1); Sodium 128 mmol/L (137-145)
[2016-11-21 11:50] LABS: Glucose,Whole Blood 198 mg/dL (75-99)
[2016-11-21 11:52] LABS: WBC 1.9 k/uL (3.8-10.6)
--- NOTE | 2016-11-21 12:21 | XR ---
EXAMINATION TYPE: XR chest 1V portable DATE OF EXAM: 11/21/2016 11:34 AM COMPARISON: 11/19/2016 INDICATION: Pneumonia TECHNIQUE: Single frontal view of the chest is obtained. FINDINGS: The heart size is normal. The pulmonary vasculature is normal. There is an infiltrating along the minor fissure on the right. A right upper lobe base consolidation appears to be present which can be compatible with pneumonia. This is denser than comparison. IMPRESSION: 1. Correlate for right upper lobe base pneumonia.
[2016-11-21] MEDS: MULTIVITAMINS, THERA 1 EACH TAB PO SCH (12:33)
[2016-11-21] MEDS: THIAMINE 100 MG TAB PO SCH ×2 (12:33→16:49)
[2016-11-21] MEDS: FOLIC ACID 1 MG TAB PO SCH (12:33)
[2016-11-21] MEDS ORDERED: RX INFO: IV CONTRAST WAS GIVEN 1 EACH MISC MISCELLANE PRN (13:04)
--- NOTE | 2016-11-21 13:10 | P.PN ---
Subjective Principal diagnosis: Right middle lobe pneumonia This is a pleasant 41-year-old gentleman who has no current primary care physician. He has a history of seizure disorders and did have epilepsy as a child but has not been on any medications as an adult. Has has a history of alcoholism and seizure related alcohol withdrawals in the past. He had trach as much as a fifth of whiskey a day but states he is down to just 6 beers daily. He's had a history of pancreatitis, ADHD, psoriasis. The patient did have significant pneumonia requiring intubation mechanical ventilation with sepsis back in 2012. We have seen the patient at that time apparently. Since then he denied having any recurrent episodes of pneumonia or hospitalizations. He has a current smoker and has been smoking since age of 14. He has not been on any inhalers at home. No oxygen. He presented here on 11/18/2016 with complaints of increasing shortness of breath cough and congestion. He also had some nausea without vomiting, abdominal discomfort and diarrhea. His chest x- ray does show evidence of a right middle lobe pneumonia. There is also noted increased density/atelectasis in the left lung base. Blood cultures reveal no growth after 72 hours. Urine culture reveals no growth. He is seen again today 11/21/2016 in follow-up. He is awake and alert in no acute distress. He states his cough is lessened. He remains dyspneic on minimal exertion. Chest x-ray continues to show right middle lobe pneumonia. Sputum culture is positive for Aleyda albicans. Most of his labs are still pending but his platelet has dropped to 18,000. The patient is quite anxious to go home. Objective - Vital Signs Vital signs: Vital Signs Temp 98.1 F 11/21/16 07:00 Pulse 81 11/21/16 07:00 Resp 16 11/21/16 08:00 BP 116/72 11/21/16 07:00 Pulse Ox 95 11/21/16 07:16 Intake & Output 11/20/16 11/21/16 11/21/16 18:59 06:59 18:59 Intake Total 150 Output Total 400 450 Balance -250 -450 Intake: IV 100 cefTRIAXone 2,000 mg In 100 Sodium Chloride 0.9% 100 ml @ 100 mls/hr IVPB Q24HR [facility] Rx#:[id number] Intake, IV Titration 50 Amount Piperacillin-Tazobactam 3 50 .375 gm In Dextrose/Water 1 50ml.bag @ 12.5 mls/hr IVPB Q6HR [facility] Rx#: [id number] Output: Urine 400 450 Other: Voiding Method Toilet Urinal # Voids 2 - Exam GENERAL EXAM: Alert, comfortable in no apparent distress. HEAD: Normocephalic. EYES: Normal reaction of pupils, equal size. NOSE: Clear with pink turbinates. THROAT: No erythema or exudates. NECK: No masses, no JVD. CHEST: No chest wall deformity. LUNGS: Equal air entry with crackles in the right lung. Diminished.. CVS: S1 and S2 normal with no audible murmurs, regular rhythm. ABDOMEN: No hepatosplenomegaly, normal bowel sounds, no guarding or rigidity. SPINE: No scoliosis or deformity SKIN: No rashes CENTRAL NERVOUS SYSTEM: No focal deficits, tone is normal in all 4 extremities. Extremities: There is no peripheral edema. No clubbing, no cyanosis. Peripheral pulses are intact. - Labs CBC & Chem 7: 11/21/16 08:28 11/21/16 08:28 Labs: Abnormal Lab Results - Last 24 Hours (Table) 11/20/16 11/21/16 11/21/16 Range/Units 20:58 07:03 08:28 MCV 102.6 H (80.0-100.0) fL Plt Count 18 L* (150-450) k/uL PT (9.0-12.0) sec Sodium (137-145) mmol/L Carbon Dioxide (22-30) mmol/L Creatinine (0.66-1.25) mg/dL Glucose (74-99) mg/dL POC Glucose (mg/dL) 113 H 148 H (75-99) mg/dL Calcium (8.4-10.2) mg/dL 11/21/16 11/21/16 11/21/16 Range/Units 08:28 08:28 11:47 MCV (80.0-100.0) fL Plt Count (150-450) k/uL PT 15.9 H (9.0-12.0) sec Sodium 128 L (137-145) mmol/L Carbon Dioxide 17 L (22-30) mmol/L Creatinine 0.51 L (0.66-1.25) mg/dL Glucose 198 H (74-99) mg/dL POC Glucose (mg/dL) 198 H (75-99) mg/dL Calcium 7.5 L (8.4-10.2) mg/dL Microbiology - Last 24 Hours (Table) 11/19/16 19:05 Gram Stain - Preliminary Sputum Sputum Culture - Preliminary Aleyda albicans Assessment and Plan Plan: Impression: #1 Dyspnea, multifactorial, secondary to a right middle lobe pneumonia suspect community-acquired. Cannot rule out aspiration pneumonia on as the patient utilizes excessive alcohol daily. Also possible exacerbation of suspected chronic obstructive pulmonary disease with chronic and ongoing nicotine addiction. #2 Chronic and ongoing tobacco dependence. #3 Chronic and ongoing alcoholism. #4 Pancytopenia secondary to alcoholic liver disease. #5 Elevated liver enzymes secondary to alcoholism. #6 Hyponatremia secondary to excessive alcohol intake. #7 History of ventilatory dependent respiratory failure secondary to pneumonia// sepsis in 2012. #8 History of ADD. #9 Pancreatitis, current lipase 836. Plan: The patient was seen and evaluated by Dr. Leigh. His chest x-ray and labs were reviewed. He does have a right mid lung pneumonia. We will order a computed tomography scan of the chest with contrast. He may benefit from bronchoscopy to rule out right middle lobe syndrome if his chest x-ray does not clear with current antibiotics. We'll continue with the current medications. We've requested a hematology consult based on the abnormal labs and pancytopenia. His platelets continue to drop. The patient does remain in CIWA protocol and will continue to observe for signs of delirium tremens. He remains in seizure precautions as well. He is educated regarding the importance of complete smoking cessation as well as alcohol cessation. We will contact continue to follow him closely in make further recommendations based on his clinical status. The patient is not ready for discharge.
[2016-11-21] MEDS: FLUCONAZOLE 100 MG TAB PO SCH (14:29)
[2016-11-21] MEDS: LORazepam 2 MG/ML SYRINGE IV PRN ×3 (14:35→21:41)
[2016-11-21 14:47] LABS: Manual Review Performed; Nucleated Red Blood Cells 0 /100 WBC (0-0)
[2016-11-21] MEDS ORDERED: LORazepam 1 MG TAB PO PRN (15:43)
[2016-11-21 16:56] LABS: Glucose,Whole Blood 113 mg/dL (75-99)
--- NOTE | 2016-11-21 17:21 | CT ---
CT CHEST FOR PULMONARY EMBOLISM. EXAMINATION TYPE: CT chest angio for PE DATE OF EXAM: 11/21/2016 3:23 PM INDICATION: pneumonia, SOB CT DLP: 229.2 mGycm, Automated exposure control for dose reduction was used. CONTRAST: Patient injected with 68 ml mL of Omnipaque 350. COMPARISON: NONE TECHNIQUE: CT of the chest is performed on a spiral scan at 2 mm thick sections. Study is performed with intravenous contrast timed for evaluation for pulmonary embolism. This will limit additional po rtions of the evaluation. 3-D MIP images reconstructed by the technologist are reviewed on the compu ter in the coronal and sagittal planes. FINDINGS: No persistent filling defects are evident to suggest an acute pulmonary embolism. No mediastinal or hilar adenopathy enlarged by CT criteria is evident. The ascending aorta diameter at the level of the main pulmonary artery is 4.2 cm. The main pulmonary artery diameter at the bifur cation is 3.2 cm. Compressive atelectasis may be adjacent to the posterior dependent right lung base. There is consolid ation within the right middle lobe. Correlate for pneumonia and atelectasis. Underlying mass is not e xcluded. This should be followed to clearing. Minimal ascites is within the visualized abdomen adjacent to the liver. IMPRESSIONS: 1. No acute pulmonary embolism. 2. Right middle lobe pneumonia. Follow-up to clearing is recommended.
--- NOTE | 2016-11-21 19:00 | PN ---
DATE OF SERVICE: 11/21/2016 This 41 gentleman who was admitted with right middle lobe pneumonia also had features of sepsis. The patient also had history of COPD, and patient also had Bicytopenia. The patient is wanting to go home at this time. On exam, alert and oriented x2. Pulse 85. Blood pressure 118/65. Respiratory rate 18. Temperature 97.9. Pulse ox 97% on room air. HEENT: Conjunctivae normal. NECK: No JVD. CARDIOVASCULAR: S1, S2 muffled. RESPIRATORY: Breath sounds diminished at the bases. A few scattered rhonchi and crackles especially right more than left. ABDOMEN: Soft, nontender. LEGS: No edema. No swelling. CENTRAL NERVOUS SYSTEM: No focal deficits. LABS: WBC pending at this time. Otherwise, MCV is 102.6, platelets 18. INR is 1.6. Sodium is 128. ASSESSMENT: 1. Right middle lobe pneumonia with possible aspiration with possible sepsis present on admission with continued fever. 2. Chronic obstructive pulmonary disease, acute exacerbation. 3. Bicytopenia with severe thrombocytopenia. 4. History of nicotine dependence. 5. Atelectasis. 6. Mild elevation of lipase and history of chronic pancreatitis. 7. History of alcoholic hepatitis. 8. History of alcohol abuse. 9. Hypernatremia. 10. Attention deficit disorder, attention deficit hyperactivity disorder. 11. History of nicotine dependence. Recommendations and Discussion: This 41-year-old gentleman who presented with multiple complex medical issues, we will monitor the patient closely. Continue current medications. Continue symptomatic treatment. Continue bronchodilators. Continue with empiric antibiotics. Hematology/Oncology consultation. Chest CT has been ordered. Prognosis guarded. Importance of continuing inpatient treatment is being stressed to the patient. Patient understands and agrees. Further recommendations to follow. [facility]
[2016-11-21 21:51] LABS: Glucose,Whole Blood 140 mg/dL (75-99)
[2016-11-22] MEDS: LORazepam 2 MG/ML SYRINGE IV PRN ×8 (01:55→23:25)
[2016-11-22 08:08] LABS: INR 1.6 (<1.1); Prothrombin Time 15.8 sec (9.0-12.0)
[2016-11-22 08:12] LABS: Aty Lym Flag Marked; HCT 46.1 % (39.0-53.0); HDW 2.75; HGB 14.7 gm/dL (13.0-17.5); Hypochromasia Slight; MCH 32.1 pg (25.0-35.0); MCHC 31.9 g/dL (31.0-37.0); MCV 100.7 fL (80.0-100.0); Macrocytosis Slight; Mean Platelet Volume 10.1; RBC 4.58 m/uL (4.30-5.90); RDW 15.4 % (11.5-15.5); WBC 4.4 k/uL (3.8-10.6)
[2016-11-22 08:13] LABS: Anion Gap 8 mmol/L; Blood Urea Nitrogen 13 mg/dL (9-20); Calcium 7.9 mg/dL (8.4-10.2); Carbon Dioxide 18 mmol/L (22-30); Chloride 108 mmol/L (98-107); Glucose 125 mg/dL (74-99); Non-African American GFR(MDRD) >60 (>60 ml/min/1.73 sqM); Potassium 4.3 mmol/L (3.5-5.1); Sodium 134 mmol/L (137-145)
[2016-11-22] MEDS: SYMBICORT 160-4.5 MCG INHALER INHALATION SCH ×2 (08:20→19:23)
[2016-11-22] MEDS: PIPERACILLIN-TAZOBACTAM 3.375 GM in DEXTROSE/WATER 1 50ML.BAG IVPB SCH ×3 (08:20→23:54)
[2016-11-22] MEDS: PANTOPRAZOLE 40 MG TABLET PO SCH ×2 (08:21→17:59)
[2016-11-22] MEDS: methylPREDNISolone SOD SUCCI 40 MG/ML 1 ML VIAL IV SCH ×3 (08:21→23:54)
[2016-11-22] MEDS: FLUCONAZOLE 100 MG TAB PO SCH (08:22)
[2016-11-22] MEDS: AZITHROMYCIN 500 MG TAB PO SCH (08:22)
[2016-11-22] MEDS: INSULIN LISPRO (humaLOG) 300 UNIT/3 ML VIAL SQ SCH ×4 (08:26→21:23)
[2016-11-22 08:29] LABS: Glucose,Whole Blood 134 mg/dL (75-99)
[2016-11-22 10:29] LABS: Nucleated Red Blood Cells 0 /100 WBC (0-0); Total Cells Counted 100
[2016-11-22 10:33] LABS: Target Cells Present
--- NOTE | 2016-11-22 11:31 | P.CONS ---
History of Present Illness - Reason for Consult Consult date: 11/22/16 Thrombocytopenia and low WBC - History of Present Illness The patient is a 41-year-old male, with a history of seizure disorder. He also has a history of alcoholism with the alcohol withdrawal to the past. He presented to the hospital on 11/18/16 complaining of increasing shortness of breath, associated with cough and expectoration. There was also a history of nausea without report vomiting. At the time chest x-ray showed evidence of a right middle lobe pneumonia as well as some density in the left lung base. The patient was admitted and started on antibiotics. On admission WBC was low at 1.9 and fell further to 1.3 on 11/19/16. It is back up to 4.4 today. Platelets on admission were 26. They were as low as 18 yesterday, and are 22 today. The patient did have significant fevers up until 11/20/16 and, at greater than 101. Since then he has been afebrile. The consult was therefore placed for further evaluation and recommendations Labs were reviewed going back to 06/14. White blood count has been low intermittently , including 3 in 03/16 and 3.7 and 05/15. At the time that has intermittently been in the low normal range. Stated counts have been chronically low going back to 06/14, with the lowest 53 in 05/15. There does not appear to be any evidence of active bleeding going on at this time. The patient is mildly restless and confused and therefore history and review of systems was obtained from the ER notes, as well as documentation of the admitting service and other consultants Past Medical History Past Medical History: Pneumonia, Seizure Disorder Additional Past Medical History / Comment(s): EPILEPSY CHILD-HAS'NT BEEN ON MEDS FOR SEIZURES SINCE AGE 11 OR 12. chronic etoh abuse, seizure related to alcohol withdrawal as well as delirium tremors, pneumonia /SEPSIS IN 2013 WAS VENTILATED, PSORIASES, PANCREATITIS. History of Any Multi-Drug Resistant Organisms: None Reported Past Surgical History: Orthopedic Surgery Additional Past Surgical History / Comment(s): RIGHT ANKLE- PLATES AND SCREWS, gastro tube, tracheostomy. Past Anesthesia/Blood Transfusion Reactions: No Reported Reaction Past Psychological History: ADD/ADHD, Anxiety, Depression Additional Psychological History / Comment(s): Pt resides with his spouse. He is independent. Smoking Status: Current every day smoker Past Alcohol Use History: None Reported Additional Past Alcohol Use History / Comment(s): STARTED SMOKING AGE 14 1/2 [employer]. Pt now down to drinking 6 beers in a day. Last drank 11/16/16 before feeling ill. Past Drug Use History: Marijuana Additional Drug Use History / Comment(s): Pt states he will smoke marijuana on occasion but not daily. - Past Family History Father Family Medical History: Myocardial Infarction ([place]) Additional Family Medical History / Comment(s): PULMOPNARY FIBROSIS AND HEART PROBLEMS. Father at the age of 65yrs from multiple medical problems. Mother Family Medical History: Cancer Additional Family Medical History / Comment(s): SKIN CANCER, DEPRESSION. AGORAPHOBIA. Mother is 63 yrs old. Medications and Allergies Home Medications Medication Instructions Recorded Confirmed Type Fexofenadine/Pseudoephedrine 1 tab PO BID PRN 11/18/16 11/18/16 History [Lauren-D 12 Hour Tablet] Allergies Allergy/AdvReac Type Severity Reaction Status Date / Time No Known Allergies Allergy Verified 07/08/16 07:50 Physical Exam Vitals: Vital Signs Temp Pulse Resp BP Pulse Ox 11/22/16 08:23 93 L 11/22/16 07:00 96.8 F L 60 20 132/76 91 L 11/21/16 23:00 97.0 F L 80 16 114/72 96 11/21/16 16:00 18 11/21/16 15:00 96.9 F L 85 18 118/65 96 Intake and Output 11/21/16 11/22/16 11/22/16 22:59 06:59 14:59 Intake Total 50 Output Total 600 1000 Balance -600 -950 Intake: Intake, IV Titration 50 Amount Piperacillin-Tazobactam 3 50 .375 gm In Dextrose/Water 1 50ml.bag @ 12.5 mls/hr IVPB Q8HR [facility] Rx#: [id number] Output: Urine 600 1000 Other: Voiding Method Incontinent # Voids 3 Results CBC & Chem 7: 11/22/16 07:48 11/22/16 07:48 Labs: Abnormal Lab Results - Last 24 Hours (Table) 11/21/16 11/21/16 11/21/16 Range/Units 08:28 11:47 16:54 MCV 102.6 H (80.0-100.0) fL Plt Count 18 L* (150-450) k/uL PT (9.0-12.0) sec Sodium (137-145) mmol/L Chloride (98-107) mmol/L Carbon Dioxide (22-30) mmol/L Creatinine (0.66-1.25) mg/dL Glucose (74-99) mg/dL POC Glucose (mg/dL) 198 H 113 H (75-99) mg/dL Calcium (8.4-10.2) mg/dL 11/21/16 11/22/16 11/22/16 Range/Units 21:48 07:48 07:48 MCV 100.7 H (80.0-100.0) fL Plt Count 22 L* (150-450) k/uL PT (9.0-12.0) sec Sodium 134 L (137-145) mmol/L Chloride 108 H (98-107) mmol/L Carbon Dioxide 18 L (22-30) mmol/L Creatinine 0.48 L (0.66-1.25) mg/dL Glucose 125 H (74-99) mg/dL POC Glucose (mg/dL) 140 H (75-99) mg/dL Calcium 7.9 L (8.4-10.2) mg/dL 11/22/16 11/22/16 Range/Units 07:48 08:24 MCV (80.0-100.0) fL Plt Count (150-450) k/uL PT 15.8 H (9.0-12.0) sec Sodium (137-145) mmol/L Chloride (98-107) mmol/L Carbon Dioxide (22-30) mmol/L Creatinine (0.66-1.25) mg/dL Glucose (74-99) mg/dL POC Glucose (mg/dL) 134 H (75-99) mg/dL Calcium (8.4-10.2) mg/dL Microbiology - Last 24 Hours (Table) 11/19/16 19:05 Gram Stain - Final Sputum Sputum Culture - Final Aleyda albicans 11/20/16 13:28 Blood Culture - Preliminary Blood No Growth after 24 hours Chest x-ray: report reviewed CT scan - chest: report reviewed Assessment and Plan (1) Bicytopenia Narrative/Plan: The patient is presenting with the bicytopenia, thrombocythemia more prominent. White count is actually already showing signs of recovery. Stated counts have been chronically low, though lower than before during this admission. 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 Platelet counts are worse than before, which is likely due to the patient continuing heavy alcohol use. In addition there is likely increased consumption from his intercurrent infection. Palpated counts are in a safe range currently. If they decline further, which can happen especially if he goes into full blown withdrawal, he should be transfuse for any period count less than 10. In addition if he were actively bleeding or needed a procedure, then we would need to transfuse to keep. Counts above 40-50. Overall, the expectation is that the. Counts will improve and go back to his baseline once his acute condition resolves, assuming that he stops continued alcohol use. Etiology of the low WBC is felt to be the same. As noted, this is already improving and in a safe range. No acute intervention required for that. I will check labs to rule out other etiologies, especially nutritional deficiency, which are more common in patients with long-term alcohol use Status: Acute Plan: Defer to the admitting service and other consultants for management of his other medical problems
[2016-11-22 12:47] LABS: Glucose,Whole Blood 128 mg/dL (75-99)
[2016-11-22] MEDS: MULTIVITAMINS, THERA 1 EACH TAB PO SCH (13:02)
[2016-11-22] MEDS: THIAMINE 100 MG TAB PO SCH ×2 (13:02→15:45)
[2016-11-22] MEDS: FOLIC ACID 1 MG TAB PO SCH (13:02)
--- NOTE | 2016-11-22 13:34 | P.PN ---
Subjective Principal diagnosis: Acute right middle lobe pneumonia This is a pleasant 41-year-old gentleman who has no current primary care physician. He has a history of seizure disorders and did have epilepsy as a child but has not been on any medications as an adult. Has has a history of alcoholism and seizure related alcohol withdrawals in the past. He had trach as much as a fifth of whiskey a day but states he is down to just 6 beers daily. He's had a history of pancreatitis, ADHD, psoriasis. The patient did have significant pneumonia requiring intubation mechanical ventilation with sepsis back in 2012. We have seen the patient at that time apparently. Since then he denied having any recurrent episodes of pneumonia or hospitalizations. He has a current smoker and has been smoking since age of 14. He has not been on any inhalers at home. No oxygen. He presented here on 11/18/2016 with complaints of increasing shortness of breath cough and congestion. He also had some nausea without vomiting, abdominal discomfort and diarrhea. His chest x- ray does show evidence of a right middle lobe pneumonia. There is also noted increased density/atelectasis in the left lung base. Blood cultures reveal no growth after 72 hours. Urine culture reveals no growth. He is seen again today 11/21/2016 in follow-up. He is awake and alert in no acute distress. He states his cough is lessened. He remains dyspneic on minimal exertion. Chest x-ray continues to show right middle lobe pneumonia. Sputum culture is positive for Aleyda albicans. Most of his labs are still pending but his platelet has dropped to 18,000. The patient is quite anxious to go home. Reevaluated today on 11/22/2016, patient is doing better, however his CT of the chest is quite concerning, there is a significant consolidation of the right middle lobe. If that doesn't improve, the patient will eventually need some be bronchoscoped. In the meantime he is being treated for what seems to be a right middle lobe pneumonia. Patient was seen by hematology/oncology for his bicytopenia, and it was felt that his thrombocytopenia is most likely alcohol related bone marrow toxicity which seems to affect the platelets the most. Pulmonary-calhoun, patient denies any cough, no wheezing, he feels that he is breathing better today Objective - Vital Signs Vital signs: Vital Signs Temp 96.8 F L 11/22/16 07:00 Pulse 60 11/22/16 07:00 Resp 20 11/22/16 07:00 BP 132/76 11/22/16 07:00 Pulse Ox 93 L 11/22/16 08:23 Intake & Output 11/21/16 11/22/16 11/22/16 18:59 06:59 18:59 Intake Total 50 Output Total 1600 Balance -1550 Intake: Intake, IV Titration 50 Amount Piperacillin-Tazobactam 3 50 .375 gm In Dextrose/Water 1 50ml.bag @ 12.5 mls/hr IVPB Q8HR [facility] Rx#: [id number] Output: Urine 1600 Other: Voiding Method Incontinent # Voids 3 3 - Exam GENERAL EXAM: Alert, comfortable in no apparent distress. HEAD: Normocephalic. EYES: Normal reaction of pupils, equal size. NOSE: Clear with pink turbinates. THROAT: No erythema or exudates. NECK: No masses, no JVD. CHEST: No chest wall deformity. LUNGS: Equal air entry with crackles in the right lung. Diminished.. CVS: S1 and S2 normal with no audible murmurs, regular rhythm. ABDOMEN: No hepatosplenomegaly, normal bowel sounds, no guarding or rigidity. SPINE: No scoliosis or deformity SKIN: No rashes CENTRAL NERVOUS SYSTEM: No focal deficits, tone is normal in all 4 extremities. Extremities: There is no peripheral edema. No clubbing, no cyanosis. Peripheral pulses are intact. - Labs CBC & Chem 7: 11/22/16 07:48 11/22/16 07:48 Labs: Abnormal Lab Results - Last 24 Hours (Table) 11/21/16 11/21/16 11/21/16 Range/Units 08:28 16:54 21:48 MCV 102.6 H (80.0-100.0) fL Plt Count 18 L* (150-450) k/uL PT (9.0-12.0) sec Sodium (137-145) mmol/L Chloride (98-107) mmol/L Carbon Dioxide (22-30) mmol/L Creatinine (0.66-1.25) mg/dL Glucose (74-99) mg/dL POC Glucose (mg/dL) 113 H 140 H (75-99) mg/dL Calcium (8.4-10.2) mg/dL 11/22/16 11/22/16 11/22/16 Range/Units 07:48 07:48 07:48 MCV 100.7 H (80.0-100.0) fL Plt Count 22 L* (150-450) k/uL PT 15.8 H (9.0-12.0) sec Sodium 134 L (137-145) mmol/L Chloride 108 H (98-107) mmol/L Carbon Dioxide 18 L (22-30) mmol/L Creatinine 0.48 L (0.66-1.25) mg/dL Glucose 125 H (74-99) mg/dL POC Glucose (mg/dL) (75-99) mg/dL Calcium 7.9 L (8.4-10.2) mg/dL 11/22/16 11/22/16 Range/Units 08:24 12:40 MCV (80.0-100.0) fL Plt Count (150-450) k/uL PT (9.0-12.0) sec Sodium (137-145) mmol/L Chloride (98-107) mmol/L Carbon Dioxide (22-30) mmol/L Creatinine (0.66-1.25) mg/dL Glucose (74-99) mg/dL POC Glucose (mg/dL) 134 H 128 H (75-99) mg/dL Calcium (8.4-10.2) mg/dL Microbiology - Last 24 Hours (Table) 11/19/16 19:05 Gram Stain - Final Sputum Sputum Culture - Final Aleyda albicans 11/20/16 13:28 Blood Culture - Preliminary Blood No Growth after 24 hours Assessment and Plan Plan: #1 Dyspnea, multifactorial, secondary to a right middle lobe pneumonia suspect community-acquired. Cannot rule out aspiration pneumonia on as the patient utilizes excessive alcohol daily. Also possible exacerbation of suspected chronic obstructive pulmonary disease with chronic and ongoing nicotine addiction. I explained to the patient today that his right middle lobe on the CT of the chest is quite concerning, and if does not improve over the next few weeks, the patient will need to have bronchoscopy and a full evaluation of the right middle lobe. At this point this cannot be done specially with his thrombocytopenia, and his other medical issues which are concerning. #2 Chronic and ongoing tobacco dependence. #3 Chronic and ongoing alcoholism. #4 Pancytopenia secondary to alcoholic liver disease. #5 Elevated liver enzymes secondary to alcoholism. #6 Hyponatremia secondary to excessive alcohol intake. #7 History of ventilatory dependent respiratory failure secondary to pneumonia// sepsis in 2013. #8 History of ADD. #9 chronic pancreatitis Recommendation: Continue present meds, including antibiotics, bronchodilators, patient will need to have close monitoring on outpatient basis for his right middle lobe consolidation and this could be accomplished on outpatient basis after discharge. Time with Patient: Less than 30
[2016-11-22] MEDS: HYDROcodone/APAP 7.5-325MG 1 EACH TAB PO PRN (15:45)
[2016-11-22 17:26] LABS: Glucose,Whole Blood 126 mg/dL (75-99)
--- NOTE | 2016-11-22 19:47 | CT ---
EXAMINATION TYPE: CT brain wo con DATE OF EXAM: 11/22/2016 7:29 PM COMPARISON: CT brain 08 November 2014 HISTORY: Altered mental status Automated exposure control for dose reduction was used. FINDINGS: There is no acute intracranial hemorrhage, mass effect, or midline shift identified. The ventricles and sulci are within normal limits in size. There is some cortical atrophy. Some periventricular whi te matter demyelination changes suspected. The globes are intact and the visualized sinuses are clear . IMPRESSION: No acute intracranial hemorrhage, mass effect, or midline shift is seen.
[2016-11-22 21:16] LABS: Glucose,Whole Blood 118 mg/dL (75-99)
[2016-11-23] MEDS: LORazepam 2 MG/ML SYRINGE IV PRN ×10 (00:38→22:00)
[2016-11-23] MEDS: SYMBICORT 160-4.5 MCG INHALER INHALATION SCH ×2 (07:40→20:15)
[2016-11-23 08:04] LABS: Glucose,Whole Blood 125 mg/dL (75-99)
[2016-11-23 08:49] LABS: INR 1.6 (<1.1); Prothrombin Time 15.9 sec (9.0-12.0)
[2016-11-23 08:57] LABS: Aty Lym Flag Slight; CH 32.2; CHCM 32.7; HCT 45.2 % (39.0-53.0); HDW 2.79; HGB 14.6 gm/dL (13.0-17.5); Large Platelets Flag Slight; MCHC 32.3 g/dL (31.0-37.0); MCV 99.1 fL (80.0-100.0); Macrocytosis Slight; Mean Platelet Volume 10.3; RBC 4.56 m/uL (4.30-5.90); RDW 15.6 % (11.5-15.5); WBC 2.6 k/uL (3.8-10.6); WBC (Perox) 2.57
[2016-11-23] MEDS: PANTOPRAZOLE 40 MG TABLET PO SCH ×2 (08:58→18:00)
[2016-11-23] MEDS: INSULIN LISPRO (humaLOG) 300 UNIT/3 ML VIAL SQ SCH ×4 (08:58→22:40)
[2016-11-23] MEDS: FLUCONAZOLE 100 MG TAB PO SCH (08:59)
[2016-11-23] MEDS: AZITHROMYCIN 500 MG TAB PO SCH (08:59)
[2016-11-23] MEDS: methylPREDNISolone SOD SUCCI 40 MG/ML 1 ML VIAL IV SCH ×2 (08:59→18:06)
[2016-11-23] MEDS: PIPERACILLIN-TAZOBACTAM 3.375 GM in DEXTROSE/WATER 1 50ML.BAG IVPB SCH ×2 (09:24→18:05)
--- NOTE | 2016-11-23 09:55 | PN ---
DATE OF SERVICE: 11/22/2016 This is a 41-year-old gentleman who presented with middle lobe pneumonia with possible aspiration and sepsis, also has significant EtOH. Patient is confused. Patient has features of full blown DT's at this time. A chest CT was done instead of a pulmonary which showed no acute pulmonary embolism, right middle lobe pneumonia was confirmed. PAST MEDICAL HISTORY: Reviewed. REVIEW OF SYMPTOMS: Could not be taken, the patient is confused. Current medications are reviewed and include Tylenol 650 q.6 p.r.n., Vina 7.5 q.6 p.r.n., DuoNeb q.i.d. and p.r.n., Zithromax 500 mg p.o. daily, Symbicort 160-4.5 two puffs b.i.d., [id number] mg daily, folic acid 1 mg daily, Humalog, Ativan p.r.n. Solu-Medrol 40 IV q.8, multivitamin, Zofran, Protonix, vitamin B1, Zosyn. PHYSICAL EXAMINATION: Patient is confused, conscious. Pulse 76, blood pressure 121/72, respirations 16, temperature 96.9, and pulse ox 97% on room air. HEENT: Conjunctivae normal, oral mucosa moist. NECK: No jugular venous distension, no carotid bruit, no lymph node enlargement. CARDIOVASCULAR SYSTEM: S1, S2, muffled, no RESPIRATORY: Breath sounds diminished at the bases, bilateral scattered rhonchi, no crackles. Abdomen is soft, nontender, no mass palpable. EXTREMITIES: Legs no edema, no swelling. NERVOUS SYSTEM: Higher function as mentioned, moves all 4 limbs, mild diffuse weakness, mild diffuse. LYMPHATICS: No lymph node enlargement in the neck, axillae or groin. SKIN: No ulcers, rash, bleeding. Labs are CBC showed platelets of 22, sodium 134, potassium 4.3. Accu-Cheks are noted. ASSESSMENT: 1. Right middle lobe pneumonia with possible aspiration with sepsis, present on admission with continued fever. 2. Change in mental status and acute delirium tremens. 3. Alcohol withdrawal syndrome. 4. Chronic obstructive pulmonary disease acute exacerbation. 5. Bicytopenia with severe thrombocytopenia secondary to alcohol. 6. History of nicotine dependence. 7. Atelectasis. 8. Mild elevation of lipase, possibly secondary to chronic pancreatitis. 9. History of alcoholic hepatitis. 10. History of EtOH abuse. 11. Hypernatremia. 12. Attention deficit hyperactivity disorder and attention deficit disorder. 13. Ongoing nicotine dependence. 14. FULL CODE. RECOMMENDATION: In this 41-year-old gentleman who presented with multiple complex medical issues, will monitor the patient closely. Continue with the current medications. Will supplement vitamins. Otherwise, I would recommend continue with current medications, secondary to the steroids. Continue with the broad-spectrum IV antibiotics. I would also recommend CIWA protocol with of Ativan. Continue to monitor. Guarded prognosis. Further recommendations to follow. Will also obtain a CAT scan of the head to complete the work-up with the . [facility]
[2016-11-23 11:20] LABS: Anion Gap 8 mmol/L; Blood Urea Nitrogen 14 mg/dL (9-20); Calcium 8.2 mg/dL (8.4-10.2); Carbon Dioxide 21 mmol/L (22-30); Chloride 108 mmol/L (98-107); Glucose 128 mg/dL (74-99); Non-African American GFR(MDRD) >60 (>60 ml/min/1.73 sqM); Potassium 4.5 mmol/L (3.5-5.1); Sodium 137 mmol/L (137-145)
[2016-11-23 11:23] LABS: Rheumatoid Factor, Qnt <9 IU/mL (<12)
[2016-11-23] MEDS ORDERED: SODIUM CHLORIDE 0.9% 1,000 ML with MVI, ADULT NO.4 WITH VIT K 10 ML, THIAMINE 100 MG, F... IV ONE ×4 (11:43)
[2016-11-23 11:57] LABS: Glucose,Whole Blood 120 mg/dL (75-99)
[2016-11-23 12:20] LABS: Vitamin B12 >1000 pg/mL (239-931)
--- NOTE | 2016-11-23 12:25 | P.PN ---
Subjective Principal diagnosis: Right middle lobe pneumonia This is a pleasant 41-year-old gentleman who has no current primary care physician. He has a history of seizure disorders and did have epilepsy as a child but has not been on any medications as an adult. Has has a history of alcoholism and seizure related alcohol withdrawals in the past. He had trach as much as a fifth of whiskey a day but states he is down to just 6 beers daily. He's had a history of pancreatitis, ADHD, psoriasis. The patient did have significant pneumonia requiring intubation mechanical ventilation with sepsis back in 2012. We have seen the patient at that time apparently. Since then he denied having any recurrent episodes of pneumonia or hospitalizations. He has a current smoker and has been smoking since age of 14. He has not been on any inhalers at home. No oxygen. He presented here on 11/18/2016 with complaints of increasing shortness of breath cough and congestion. He also had some nausea without vomiting, abdominal discomfort and diarrhea. His chest x- ray does show evidence of a right middle lobe pneumonia. There is also noted increased density/atelectasis in the left lung base. Blood cultures reveal no growth after 72 hours. Urine culture reveals no growth. He is seen again today 11/23/2016 in follow-up. He has worsening mental status. A computed tomography scan of the brain revealed no abnormal intracranial process. The patient may be experiencing alcohol withdrawal. He remains in the CIWA protocol along with seizure precautions. He is stable from the pulmonary standpoint. He is maintaining good O2 saturations in the upper 90s on room air. Currently afebrile. Hematology is on the case regarding his bicytopenia. Objective - Vital Signs Vital signs: Vital Signs Temp 97.1 F L 11/23/16 07:00 Pulse 77 11/23/16 07:00 Resp 21 11/23/16 07:00 BP 126/86 11/23/16 07:00 Pulse Ox 97 11/23/16 07:39 Intake & Output 11/22/16 11/23/16 11/23/16 18:59 06:59 18:59 Intake Total 200 Output Total 500 Balance -500 200 Intake: Oral 200 Output: Urine 500 Other: Voiding Method Urinal Diaper Incontinent # Voids 1 1 # Bowel Movements 1 - Exam GENERAL EXAM: Restless, altered mental status. HEAD: Normocephalic. EYES: Normal reaction of pupils, equal size. NOSE: Clear with pink turbinates. THROAT: No erythema or exudates. NECK: No masses, no JVD. CHEST: No chest wall deformity. LUNGS: Equal air entry with crackles in the right lung. Diminished. CVS: S1 and S2 normal with no audible murmurs, regular rhythm. ABDOMEN: No hepatosplenomegaly, normal bowel sounds, no guarding or rigidity. SPINE: No scoliosis or deformity SKIN: No rashes CENTRAL NERVOUS SYSTEM: No focal deficits, tone is normal in all 4 extremities. Extremities: There is no peripheral edema. No clubbing, no cyanosis. Peripheral pulses are intact. - Labs CBC & Chem 7: 11/23/16 08:17 11/23/16 08:17 Labs: Abnormal Lab Results - Last 24 Hours (Table) 11/22/16 11/22/16 11/22/16 Range/Units 12:40 17:20 21:13 WBC (3.8-10.6) k/uL RDW (11.5-15.5) % Plt Count (150-450) k/uL PT (9.0-12.0) sec Chloride (98-107) mmol/L Carbon Dioxide (22-30) mmol/L Creatinine (0.66-1.25) mg/dL Glucose (74-99) mg/dL POC Glucose (mg/dL) 128 H 126 H 118 H (75-99) mg/dL Calcium (8.4-10.2) mg/dL 11/23/16 11/23/16 11/23/16 Range/Units 07:47 08:17 08:17 WBC 2.6 L (3.8-10.6) k/uL RDW 15.6 H (11.5-15.5) % Plt Count 32 L* (150-450) k/uL PT (9.0-12.0) sec Chloride 108 H (98-107) mmol/L Carbon Dioxide 21 L (22-30) mmol/L Creatinine 0.50 L (0.66-1.25) mg/dL Glucose 128 H (74-99) mg/dL POC Glucose (mg/dL) 125 H (75-99) mg/dL Calcium 8.2 L (8.4-10.2) mg/dL 11/23/16 11/23/16 Range/Units 08:17 11:49 WBC (3.8-10.6) k/uL RDW (11.5-15.5) % Plt Count (150-450) k/uL PT 15.9 H (9.0-12.0) sec Chloride (98-107) mmol/L Carbon Dioxide (22-30) mmol/L Creatinine (0.66-1.25) mg/dL Glucose (74-99) mg/dL POC Glucose (mg/dL) 120 H (75-99) mg/dL Calcium (8.4-10.2) mg/dL Microbiology - Last 24 Hours (Table) 11/20/16 13:28 Blood Culture - Preliminary Blood No Growth after 48 hours 11/19/16 19:05 Gram Stain - Final Sputum Sputum Culture - Final Aleyda albicans Assessment and Plan Plan: Impression: #1 Dyspnea, multifactorial, secondary to a right middle lobe pneumonia suspect community-acquired. Cannot rule out aspiration pneumonia on as the patient utilizes excessive alcohol daily. Also possible exacerbation of suspected chronic obstructive pulmonary disease with chronic and ongoing nicotine addiction. #2 Chronic and ongoing tobacco dependence. #3 Chronic and ongoing alcoholism. #4 Bicytopenia suspected secondary to alcoholic liver disease. Hematology has been consulted. #5 Elevated liver enzymes secondary to alcoholism. #6 Hyponatremia secondary to excessive alcohol intake. #7 History of ventilatory dependent respiratory failure secondary to pneumonia// sepsis in 2012. #8 History of ADD. #9 Pancreatitis, current lipase 836. Plan: The patient was seen and evaluated by Dr. Robledo. We reviewed the CAT scan of the chest regarding the right middle lobe pneumonia. We'll repeat his chest x- ray today. He is having signs of alcohol withdrawal. He is mental status is worsened. A computed tomography scan of the brain revealed no acute intracranial abnormalities. He is maintaining good O2 saturations in the upper 90s on room air. We'll continue with his current medications. We'll continue to follow.
[2016-11-23] MEDS: THIAMINE 100 MG TAB PO SCH ×2 (12:52→18:00)
[2016-11-23] MEDS: FOLIC ACID 1 MG TAB PO SCH (12:52)
[2016-11-23] MEDS: MULTIVITAMINS, THERA 1 EACH TAB PO SCH (12:52)
[2016-11-23 13:18] LABS: Target Cells Present; Total Cells Counted 100
[2016-11-23 13:20] LABS: Add Differential Manual Differential
--- NOTE | 2016-11-23 13:22 | XR ---
EXAMINATION TYPE: XR chest 1V portable DATE OF EXAM: 11/23/2016 12:45 PM COMPARISON: 11/21/2016 HISTORY: Right lung infiltrate follow-up TECHNIQUE: Single frontal view of the chest is obtained. FINDINGS: Persistent right upper lobe area of consolidation. Left lung clear. No pleural effusion or pneumothorax. Heart is enlarged. IMPRESSION: 1. Stable right upper lobe infiltrate.
[2016-11-23 13:31] LABS: Add Differential Manual Differential
[2016-11-23 14:10] LABS: Add Differential Manual Differential
[2016-11-23 14:16] LABS: Manual Review Performed; Nucleated Red Blood Cells 0 /100 WBC (0-0); Total Cells Counted 200
[2016-11-23 17:34] LABS: Glucose,Whole Blood 116 mg/dL (75-99)
[2016-11-23 21:41] LABS: Glucose,Whole Blood 112 mg/dL (75-99)
[2016-11-24] MEDS: LORazepam 2 MG/ML SYRINGE IV PRN ×7 (00:49→21:14)
[2016-11-24] MEDS: PIPERACILLIN-TAZOBACTAM 3.375 GM in DEXTROSE/WATER 1 50ML.BAG IVPB SCH ×4 (00:50→23:12)
[2016-11-24] MEDS: methylPREDNISolone SOD SUCCI 40 MG/ML 1 ML VIAL IV SCH ×4 (00:50→23:12)
[2016-11-24 07:40] LABS: Glucose,Whole Blood 142 mg/dL (75-99)
--- NOTE | 2016-11-24 07:50 | PN ---
DATE OF SERVICE: 11/23/2016 This 41-year-old gentleman was admitted with pneumonia, possibly aspiration, possibly gram-negative with possible sepsis, present on admission, is undergoing full blown DT. Patient has significant history of EtOH. Patient is confused. CIWA protocol has been initiated. The patient had right upper lobe infiltrate. Dr. Robledo is following the patient closely. A CAT scan of the brain did not show acute abnormality. PAST MEDICAL HISTORY: Reviewed. REVIEW OF SYSTEMS: Could not be taken as the patient is confused. Current medications are reviewed and include Tylenol 650 q.6, [place] 7.5 q.6 p.r.n., DuoNeb q.i.d. and pain, Zithromax, Symbicort 160/4.5 two puffs b.i.d., Diflucan, folic acid, Humalog, Ativan, Solu-Medrol 40 IV q.8, multivitamin, Protonix, Zosyn IV. PHYSICAL EXAM: Patient is conscious, confused. Pulse 72, blood pressure 116/83, respirations 20, temperature is 96.8, the blood pressure is 160/86, pulse ox 94% on room air. HEENT: Conjunctivae normal, oral mucosa moist. Neck is no jugular venous distension, no carotid bruit, no lymph node enlargement. CARDIOVASCULAR SYSTEM: S1, S2, muffled, no S3, no S4. RESPIRATORY: Breath sounds diminished at the bases, bilateral scattered rhonchi, no crackles. Abdomen is soft, nontender, no mass palpable. NERVOUS SYSTEM: No focal deficits. LABS: WBC is 2.6, platelets are 32, and INR is 1.6, B123 is more than 1000. ASSESSMENT: 1. Right middle lobe pneumonia with possible aspiration and sepsis, present on admission with continued fever. 2. Change in mental status and acute delirium tremens. 3. Alcohol withdrawal syndrome. 4. Chronic obstructive pulmonary disease with acute exacerbation. 5. Bicytopenia with severe thrombocytopenia, possibly secondary to alcohol. 6. History of nicotine dependence. 7. Atelectasis. 8. Mild elevation of lipids, possibly secondary to chronic pancreatitis. 9. History of alcoholic hepatitis. 10. History of Ethyl Alcohol abuse. 11. Hyponatremia, possibly secondary to dehydration. 12. Attention deficit hyperactivity disorder and as well as attention deficit disorder. 13. Ongoing nicotine dependence. 14. FULL CODE. RECOMMENDATION: Recommend to current medications, continue symptomatic treatment with the bronchodilators. Continue with empiric antibiotics. Continue with the CIWA protocol. Closely follow with multiple consultants. CT scan did not show any acute abnormality. Continue with the neuro checks as well. Prognosis guarded because of multiple complex medical issues. Further recommendations to follow.
[2016-11-24] MEDS: INSULIN LISPRO (humaLOG) 300 UNIT/3 ML VIAL SQ SCH ×4 (07:52→21:13)
[2016-11-24] MEDS: FLUCONAZOLE 100 MG TAB PO SCH (07:53)
[2016-11-24] MEDS: PANTOPRAZOLE 40 MG TABLET PO SCH ×2 (07:53→17:33)
[2016-11-24] MEDS: AZITHROMYCIN 500 MG TAB PO SCH (07:53)
[2016-11-24] MEDS: SYMBICORT 160-4.5 MCG INHALER INHALATION SCH ×2 (09:19→20:07)
[2016-11-24] MEDS: FOLIC ACID 1 MG TAB PO SCH (11:43)
[2016-11-24] MEDS: MULTIVITAMINS, THERA 1 EACH TAB PO SCH (11:43)
[2016-11-24] MEDS: THIAMINE 100 MG TAB PO SCH ×2 (11:43→17:33)
--- NOTE | 2016-11-24 12:02 | P.CN ---
Psychiatric Consult - . Consult date: 11/24/16 Consult:: I reviewed the medical record and attempted to interview Mr. Zamora. He was markedly sedated. He responds to his name by opening his eyes but could not participate in a psychiatric examination. His CIWA scores have range from 9-16 indicating severe alcohol withdrawal symptoms. I would recommend to continue with the current see her protocol to prevent severe alcohol withdrawal symptoms such as psychosis, seizures or delirium. I will attempt to evaluate him tomorrow. 11/24/16 11:59
--- NOTE | 2016-11-24 12:08 | P.PN ---
Subjective Principal diagnosis: Right middle lobe pneumonia This is a pleasant 41-year-old gentleman who has no current primary care physician. He has a history of seizure disorders and did have epilepsy as a child but has not been on any medications as an adult. Has has a history of alcoholism and seizure related alcohol withdrawals in the past. He had trach as much as a fifth of whiskey a day but states he is down to just 6 beers daily. He's had a history of pancreatitis, ADHD, psoriasis. The patient did have significant pneumonia requiring intubation mechanical ventilation with sepsis back in 2012. We have seen the patient at that time apparently. Since then he denied having any recurrent episodes of pneumonia or hospitalizations. He has a current smoker and has been smoking since age of 14. He has not been on any inhalers at home. No oxygen. He presented here on 11/18/2016 with complaints of increasing shortness of breath cough and congestion. He also had some nausea without vomiting, abdominal discomfort and diarrhea. His chest x- ray does show evidence of a right middle lobe pneumonia. There is also noted increased density/atelectasis in the left lung base. Blood cultures reveal no growth after 72 hours. Urine culture reveals no growth. He is seen again today 11/24/2016 in follow-up. He has continued altered mental status. A computed tomography scan of the brain revealed no abnormal intracranial process. The patient is most likely experiencing alcohol withdrawal. He remains in the CIWA protocol along with seizure precautions. He is stable from the pulmonary standpoint. His follow-up chest x-ray reveals stable right upper lobe infiltrate. He is maintaining good O2 saturations in the upper 90s on room air. Currently afebrile. Hematology is on the case regarding his bicytopenia. Objective - Vital Signs Vital signs: Vital Signs Temp 97.0 F L 11/24/16 07:00 Pulse 75 11/24/16 07:00 Resp 20 11/24/16 07:00 BP 135/81 11/24/16 07:00 Pulse Ox 97 11/24/16 07:00 Intake & Output 11/23/16 11/24/16 11/24/16 18:59 06:59 18:59 Intake Total 125 Output Total 500 1000 Balance -500 -845 Intake: Intake, IV Titration 125 Amount Piperacillin-Tazobactam 3 50 .375 gm In Dextrose/Water 1 50ml.bag @ 12.5 mls/hr IVPB Q8HR [facility] Rx#: [id number] Sodium Chloride 0.9% 1, 75 000 ml @ 75 mls/hr IV . [id number] ONE with Mvi, Adult No.4 with Vit K 10 ml with Thiamine 100 mg with Folic Acid 1 mg Rx#: [id number] Output: Urine 500 1000 Other: Voiding Method Urinal Urinal Diaper Incontinent # Voids 1 1 - Exam GENERAL EXAM: Restless, altered mental status. HEAD: Normocephalic. EYES: Normal reaction of pupils, equal size. NOSE: Clear with pink turbinates. THROAT: No erythema or exudates. NECK: No masses, no JVD. CHEST: No chest wall deformity. LUNGS: Equal air entry with crackles in the right lung. Diminished. CVS: S1 and S2 normal with no audible murmurs, regular rhythm. ABDOMEN: No hepatosplenomegaly, normal bowel sounds, no guarding or rigidity. SPINE: No scoliosis or deformity SKIN: No rashes CENTRAL NERVOUS SYSTEM: No focal deficits, tone is normal in all 4 extremities. Extremities: There is no peripheral edema. No clubbing, no cyanosis. Peripheral pulses are intact. - Labs CBC & Chem 7: 11/23/16 08:17 11/23/16 08:17 Labs: Abnormal Lab Results - Last 24 Hours (Table) 11/21/16 11/22/16 11/23/16 Range/Units 08:28 07:48 08:17 WBC 1.9 L* 2.6 L (3.8-10.6) k/uL MCV 102.6 H 100.7 H (80.0-100.0) fL RDW 15.6 H (11.5-15.5) % Plt Count 18 L* 22 L* 32 L* (150-450) k/uL Lymphocytes # (Manual) 0.6 L 0.5 L 0.3 L (1.0-4.8) k/uL Chloride (98-107) mmol/L Carbon Dioxide (22-30) mmol/L Creatinine (0.66-1.25) mg/dL Glucose (74-99) mg/dL POC Glucose (mg/dL) (75-99) mg/dL Calcium (8.4-10.2) mg/dL Vitamin B12 (239-931) pg/mL 11/23/16 11/23/16 11/23/16 Range/Units 08:17 17:23 21:36 WBC (3.8-10.6) k/uL MCV (80.0-100.0) fL RDW (11.5-15.5) % Plt Count (150-450) k/uL Lymphocytes # (Manual) (1.0-4.8) k/uL Chloride 108 H (98-107) mmol/L Carbon Dioxide 21 L (22-30) mmol/L Creatinine 0.50 L (0.66-1.25) mg/dL Glucose 128 H (74-99) mg/dL POC Glucose (mg/dL) 116 H 112 H (75-99) mg/dL Calcium 8.2 L (8.4-10.2) mg/dL Vitamin B12 >1000 H (239-931) pg/mL 11/24/16 Range/Units 06:49 WBC (3.8-10.6) k/uL MCV (80.0-100.0) fL RDW (11.5-15.5) % Plt Count (150-450) k/uL Lymphocytes # (Manual) (1.0-4.8) k/uL Chloride (98-107) mmol/L Carbon Dioxide (22-30) mmol/L Creatinine (0.66-1.25) mg/dL Glucose (74-99) mg/dL POC Glucose (mg/dL) 142 H (75-99) mg/dL Calcium (8.4-10.2) mg/dL Vitamin B12 (239-931) pg/mL Microbiology - Last 24 Hours (Table) 11/20/16 13:28 Blood Culture - Preliminary Blood No Growth after 72 hours Assessment and Plan Plan: Impression: #1 Dyspnea, multifactorial, secondary to a right middle lobe pneumonia suspect community-acquired. Cannot rule out aspiration pneumonia on as the patient utilizes excessive alcohol daily. Follow-up chest x-ray reveals stable right mid lung pneumonia. Also possible exacerbation of suspected chronic obstructive pulmonary disease with chronic and ongoing nicotine addiction. #2 Chronic and ongoing tobacco dependence. #3 Chronic and ongoing alcoholism. #4 Bicytopenia suspected secondary to alcoholic liver disease. Hematology has been consulted. #5 Elevated liver enzymes secondary to alcoholism. #6 Hyponatremia secondary to excessive alcohol intake. #7 History of ventilatory dependent respiratory failure secondary to pneumonia// sepsis in 2013. #8 History of ADD. #9 Pancreatitis, current lipase 836. Plan: The patient was seen and evaluated by Dr. Robledo. We reviewed the CAT scan of the chest regarding the right middle lobe pneumonia. Follow-up chest x-ray as stable. He is having signs of alcohol withdrawal. His mental status remains altered. A computed tomography scan of the brain revealed no acute intracranial abnormalities. He is maintaining good O2 saturations in the upper 90s on room air. We'll continue with his current medications. We'll continue to follow.
[2016-11-24 12:16] LABS: Glucose,Whole Blood 124 mg/dL (75-99)
[2016-11-24] MEDS ORDERED: INFLUENZA VACCINE (3YR+) 60 MCG/0.5 ML SYRINGE IM ONE (14:41)
[2016-11-24 17:14] LABS: Glucose,Whole Blood 118 mg/dL (75-99)
[2016-11-24 17:47] LABS: HIV-1/HIV-2 Ab Screen NONREAC (NON REAC)
--- NOTE | 2016-11-24 19:01 | PN ---
DATE OF SERVICE: 11/24/2016 This 41-year-old gentleman who was admitted with right middle lobe pneumonia with possible aspiration and sepsis, present on admission with continued fever. The patient also has change in mental status also. No chest pain. No palpitation. No fever. Seen and evaluated the patient along with the nurse practitioner. Please refer to the nurse practitioner notes and impression documented as a scribe for further information. The patient also seen having DTs also. Prognosis extremely guarded because of multiple complex medical issues. Further recommendations to follow.
[2016-11-24 20:22] LABS: Glucose,Whole Blood 141 mg/dL (75-99)
--- NOTE | 2016-11-24 22:30 | P.PN ---
Subjective Date of service 11/24/2016. Progress note being dictated for Dr. Madison. Interval history: This 41-year-old gentleman admitted with sepsis, right middle lobe pneumonia-possibly bilateral, acute alcoholic hepatitis, alcohol withdrawal , pancytopenia, pancreatitis and multiple other medical issues. Maintained on CIWA protocol, seizure precautions. No breakfast intake. Staff reports patient confused, positive DTs with hallucinations. parish visitor at bedside. Afebrile. Past medical history reviewed. Review of systems unable to obtain as patient sedated. Active Medications Acetaminophen (Tylenol Tab) 650 mg PO Q6HR PRN PRN Reason: Fever and/ or Pain Last Admin: 11/20/16 14:03 Dose: 650 mg Acetaminophen/Hydrocodone Bitart ([place] 7.5-325) 1 each PO Q6H PRN PRN Reason: Pain Last Admin: 11/22/16 15:45 Dose: 1 each Albuterol/Ipratropium (Duoneb 0.5 Mg-3 Mg/3 Ml Soln) 3 ml INHALATION RT-QID PRN PRN Reason: Shortness Of Breath Or Wheezing Azithromycin (Zithromax) 500 mg PO DAILY COUNTS INCLUDE 234 BEDS AT THE [facility] Last Admin: 11/24/16 07:53 Dose: 500 mg Budesonide/Formoterol Fumarate (Symbicort 160-4.5 Mcg Inhaler) 2 puff INHALATION RT-BID COUNTS INCLUDE 234 BEDS AT THE [facility] Last Admin: 11/24/16 20:07 Dose: Not Given Fluconazole (Diflucan) 100 mg PO DAILY COUNTS INCLUDE 234 BEDS AT THE [facility] Last Admin: 11/24/16 07:53 Dose: 100 mg Folic Acid (Folic Acid) 1 mg PO DAILY@1200 COUNTS INCLUDE 234 BEDS AT THE [facility] Last Admin: 11/24/16 11:43 Dose: 1 mg Piperacillin/Tazobactam/ (Dextrose 3.375 gm/ IV Solution) 50 mls @ 12.5 mls/hr IVPB Q8HR NAY Last Admin: 11/24/16 15:36 Dose: 12.5 mls/hr Insulin Human Lispro (Humalog) 0 unit SQ ACHS NAY PRN Reason: Protocol Last Admin: 11/24/16 21:13 Dose: 2 unit Loratadine/Pseudoephedrine Sulfate (Claritin-D 12 Hr) 1 each PO BID PRN PRN Reason: Allergy Symptoms Last Admin: 11/20/16 16:37 Dose: 1 each Lorazepam (Ativan) 1 mg IV Q2HR PRN PRN Reason: CIWA 8 or 9 Last Admin: 11/23/16 12:51 Dose: 1 mg Lorazepam (Ativan) 1 mg IV Q1HR PRN PRN Reason: CIWA 10 to 15 Last Admin: 11/24/16 02:14 Dose: 1 mg Lorazepam (Ativan) 2 mg IV Q1HR PRN PRN Reason: CIWA 16 or higher Last Admin: 11/24/16 21:14 Dose: 2 mg Lorazepam (Ativan) 1 mg PO Q1HR PRN PRN Reason: Alcohol Withdrawal Methylprednisolone Sodium Succinate (Solu-Medrol) 40 mg IV Q8HR COUNTS INCLUDE 234 BEDS AT THE [facility] Last Admin: 11/24/16 15:36 Dose: 40 mg Multivitamins (Theragran) 1 each PO DAILY@1200 COUNTS INCLUDE 234 BEDS AT THE [facility] Last Admin: 11/24/16 11:43 Dose: 1 each Ondansetron HCl (Zofran) 4 mg IVP Q8HR PRN PRN Reason: Nausea Last Admin: 11/19/16 02:55 Dose: 4 mg Pantoprazole Sodium (Protonix) 40 mg PO AC-BID COUNTS INCLUDE 234 BEDS AT THE [facility] Last Admin: 11/24/16 17:33 Dose: 40 mg Sodium Chloride (Saline Flush) 10 ml IV BID COUNTS INCLUDE 234 BEDS AT THE [facility] Last Admin: 11/24/16 21:13 Dose: 10 ml Thiamine HCl (Vitamin B-1) 100 mg PO BID@1200,1700 COUNTS INCLUDE 234 BEDS AT THE [facility] Last Admin: 11/24/16 17:33 Dose: 100 mg Objective - Vital Signs Vital signs: Vital Signs Temp 96.6 F L 11/24/16 15:00 Pulse 68 11/24/16 15:00 Resp 20 11/24/16 15:00 BP 122/75 11/24/16 15:00 Pulse Ox 97 11/24/16 15:00 Intake & Output 11/24/16 11/24/16 11/25/16 06:59 18:59 06:59 Intake Total 125 1190 200 Output Total 1000 Balance -875 1190 200 Intake: Intake, IV Titration 125 650 Amount Piperacillin-Tazobactam 3 50 50 .375 gm In Dextrose/Water 1 50ml.bag @ 12.5 mls/hr IVPB Q8HR COUNTS INCLUDE 234 BEDS AT THE [facility] Rx#: [id number] Sodium Chloride 0.9% 1, 75 600 000 ml @ 75 mls/hr IV . [id number] ONE with Mvi, Adult No.4 with Vit K 10 ml with Thiamine 100 mg with Folic Acid 1 mg Rx#: [id number] Oral 540 200 Output: Urine 1000 Other: Voiding Method Urinal # Voids 1 3 # Bowel Movements 0 - Exam PHYSICAL EXAM: VITAL SIGNS: As above GENERAL: Lying in bed, sedated with seizure precautions maintained HEENT: conjunctiva normal.] NECK: [Supple, no JVD] RESPIRATORY EFFORT: Normal] LUNGS: Bilateral bases diminished, right mid-lung crackles ,scattered rhonchi throughout CARDIOVASCULAR regular S1 and S2, no murmurs rubs or gallops, no edema GI: [Abdomen soft, nontender, no organomegaly, positive bowel sounds] NEURO: Deferred as patient sedated. - Labs CBC & Chem 7: 11/23/16 08:17 11/23/16 08:17 Labs: Abnormal Lab Results - Last 24 Hours (Table) 11/23/16 11/24/16 11/24/16 Range/Units 21:36 06:49 11:44 POC Glucose (mg/dL) 112 H 142 H 124 H (75-99) mg/dL 11/24/16 11/24/16 Range/Units 16:49 20:11 POC Glucose (mg/dL) 118 H 141 H (75-99) mg/dL Microbiology - Last 24 Hours (Table) 11/20/16 13:28 Blood Culture - Preliminary Blood No Growth after 96 hours Assessment and Plan Plan: 1. [Sepsis secondary to right middle lobe pnumonia, possible aspiration and sepsis present on admission. 2. Change in mental status with acute DTs secondary to alcohol withdrawal syndrome, in a patient with alcohol abuse, alcohol dependence.. 3.[Acute alcoholic hepatitis in a patient with history of liver cirrhosis]. 4.Bicytopenia secondary to bone marrow suppression related to chronic alcoholism ]. 5. Acute exacerbation of COPD 6. Atelectasis 7. [Mild nonspecific elevation of lipase, doubt pancreatitis at this time, in a patient with chronic pancreatitis]. 8. Hyponatremia, secondary to dehydration related to alcohol abuse 9. ADHD, ADD 9. Ongoing nicotine dependence Plan: Continue on current medication regime , antibiotics,CIWA protocol, nebulized bronchodilators, steroids, monitoring and symptomatic treatment. Hematology consult in place with recommendations pending. Attempted psychiatry evaluation noted, with reevaluation scheduled for tomorrow. Maintain sitter and neuro checks as ordered. Seizure /aspiration precautions. Aggressive pulmonary toileting. Prognosis guarded given multiple complex medical issues. The impression and plan of care has been dictated as directed. : I performed a H&P examination of this patient and discussed the same with the dictator. I agree with the dictator's note. Any additional findings/opinions/ etc. will be noted.
[2016-11-25] MEDS: LORazepam 2 MG/ML SYRINGE IV PRN (01:02)
[2016-11-25] MEDS: SYMBICORT 160-4.5 MCG INHALER INHALATION SCH ×2 (07:23→20:35)
[2016-11-25 07:52] LABS: Glucose,Whole Blood 107 mg/dL (75-99)
[2016-11-25] MEDS: FLUCONAZOLE 100 MG TAB PO SCH (09:31)
[2016-11-25] MEDS: PIPERACILLIN-TAZOBACTAM 3.375 GM in DEXTROSE/WATER 1 50ML.BAG IVPB SCH ×3 (09:31→23:36)
[2016-11-25] MEDS: methylPREDNISolone SOD SUCCI 40 MG/ML 1 ML VIAL IV SCH ×3 (09:31→23:37)
[2016-11-25] MEDS: AZITHROMYCIN 500 MG TAB PO SCH (09:31)
[2016-11-25] MEDS: PANTOPRAZOLE 40 MG TABLET PO SCH ×2 (09:31→17:23)
[2016-11-25 09:46] LABS: Anion Gap 11 mmol/L; Blood Urea Nitrogen 16 mg/dL (9-20); Calcium 8.7 mg/dL (8.4-10.2); Carbon Dioxide 16 mmol/L (22-30); Chloride 111 mmol/L (98-107); Glucose 104 mg/dL (74-99); Non-African American GFR(MDRD) >60 (>60 ml/min/1.73 sqM); Potassium 4.5 mmol/L (3.5-5.1); Sodium 138 mmol/L (137-145)
[2016-11-25 09:55] LABS: Basophils % (A) 0 %; CH 32.4; CHCM 33.1; Eosinophils % (A) 0 %; HCT 48.3 % (39.0-53.0); HGB 15.8 gm/dL (13.0-17.5); Luc # (Auto) 0.15; Luc % (Auto) 3; Lymphocytes # (A) 0.5 k/uL (1.0-4.8); Lymphocytes % (A) 12 %; MCH 32.2 pg (25.0-35.0); MCHC 32.7 g/dL (31.0-37.0); MCV 98.3 fL (80.0-100.0); Mean Platelet Volume 11.5; Monocytes # (A) 0.4 k/uL (0-1.0); Monocytes % (A) 9 %; Neutrophils # (A) 3.2 k/uL (1.3-7.7); Neutrophils % (A) 75 %; RBC 4.92 m/uL (4.30-5.90); RDW 15.5 % (11.5-15.5); WBC 4.3 k/uL (3.8-10.6); WBC (Perox) 4.56
[2016-11-25] MEDS: INSULIN LISPRO (humaLOG) 300 UNIT/3 ML VIAL SQ SCH ×4 (11:17→21:53)
--- NOTE | 2016-11-25 11:24 | P.PN ---
Subjective Progress note dated 11/25/2016 The patient is seen in follow-up today. The patient still has a poor mental status. Very lethargic and somnolent. Chest x-ray shows a persistent infiltrate. The patient is stable from the pulmonary standpoint though. The right upper lobe infiltrate is the same or slightly improved. Saturations are reasonable. No respiratory distress. He can lay flat without difficulty. Objective - Vital Signs Vital signs: Vital Signs Temp 96.6 F L 11/25/16 07:00 Pulse 92 11/25/16 07:00 Resp 16 11/25/16 07:00 BP 123/79 11/25/16 07:00 Pulse Ox 100 11/25/16 07:00 Intake & Output 11/24/16 11/25/16 11/25/16 18:59 06:59 18:59 Intake Total 1190 250 Output Total 500 Balance 1190 -250 Intake: Intake, IV Titration 650 50 Amount Piperacillin-Tazobactam 3 50 50 .375 gm In Dextrose/Water 1 50ml.bag @ 12.5 mls/hr IVPB Q8HR [facility] Rx#: [id number] Sodium Chloride 0.9% 1, 600 000 ml @ 75 mls/hr IV . [id number] ONE with Mvi, Adult No.4 with Vit K 10 ml with Thiamine 100 mg with Folic Acid 1 mg Rx#: [id number] Oral 540 200 Output: Urine 500 Other: # Voids 3 1 # Bowel Movements 0 - Exam No acute distress, not particularly oriented. Very lethargic and somnolent may be a bit better than yesterday. HEENT examination is grossly unremarkable. Neck supple. Full range of motion. Cardiovascular examination reveals regular rhythm rate. S1-S2 normal. Heart rate mid 80s. Lungs reveal few scattered rhonchi. Mostly clear. No wheezes or crackles. Abdomen soft bowel sounds are heard. Extremities are intact. - Labs CBC & Chem 7: 11/25/16 08:03 11/25/16 08:03 Labs: Abnormal Lab Results - Last 24 Hours (Table) 11/24/16 11/24/16 11/24/16 Range/Units 11:44 16:49 20:11 Plt Count (150-450) k/uL Lymphocytes # (1.0-4.8) k/uL Chloride (98-107) mmol/L Carbon Dioxide (22-30) mmol/L Creatinine (0.66-1.25) mg/dL Glucose (74-99) mg/dL POC Glucose (mg/dL) 124 H 118 H 141 H (75-99) mg/dL 11/25/16 11/25/16 11/25/16 Range/Units 07:49 08:03 08:03 Plt Count 38 L* (150-450) k/uL Lymphocytes # 0.5 L (1.0-4.8) k/uL Chloride 111 H (98-107) mmol/L Carbon Dioxide 16 L (22-30) mmol/L Creatinine 0.51 L (0.66-1.25) mg/dL Glucose 104 H (74-99) mg/dL POC Glucose (mg/dL) 107 H (75-99) mg/dL Microbiology - Last 24 Hours (Table) 11/20/16 13:28 Blood Culture - Preliminary Blood No Growth after 96 hours Assessment and Plan (1) Alcohol dependence Status: Acute (2) Pneumonia Status: Acute (3) Alcohol withdrawal syndrome Status: Acute (4) Cirrhosis Status: Acute Plan: Plan dated 11/25/2016 The patient continues to show very slow improvement. For the pulmonary standpoint he is doing well. His biggest issue is mental status. This may be from the chronic alcohol abuse. We'll continue to follow. Prognosis is guarded. Will likely need be discharged to some sort of facility such as assisted living rehab intermediate, etc. Time with Patient: Less than 30
[2016-11-25 11:41] LABS: Glucose,Whole Blood 151 mg/dL (75-99)
--- NOTE | 2016-11-25 13:02 | P.CN ---
Psychiatric Consult - . Consult date: 11/25/16 Consult:: Reviewed the medical record and interviewed Mr. Zamora. He was alert and laying comfortably in bed. He stated that he came to the hospital for pneumonia. He could not tell me how long he had been in the hospital. He alleged that he had weaned himself off of alcohol drinking "no more" and a 6 pack of beer for the week prior to admission. He denied use of other drugs with the exception of marijuana. His CIWA scores over the last 24 hours range from 18-3. He received a total of 3 mg of lorazepam IV over the last 24 hours. He presented as a sedated-appearing 41-year-old male who was only wearing adult diapers. He had a large macular rash on the left shoulder and chest. He did not make eye contact and did not appear to attend to the interview. He had a flat facial expression. He was alert and oriented to person and month. He thought the year was 1996 and that he was at the [facility]. He was intermittently restless. His speech was not spontaneous. He was dysarthric. His affect was flat. His thinking was slow. He denied hallucinations and did not appear to be responding to internal stimuli. Impression he is much less sedated than yesterday and minimally able to concentrate and attend to the interview. He remains confused and disoriented. I concur with the impression that his current state is related to severe alcohol withdrawal and/or the effects of sedation with lorazepam. Recommendation: Continue CIWA with lorazepam, consider haloperidol 5 mg by mouth /IM for severe agitation, discuss were referral to a substance abuse treatment program when he is more cognitively intact. 11/25/16 12:55
[2016-11-25] MEDS: THIAMINE 100 MG TAB PO SCH ×2 (13:07→17:23)
[2016-11-25] MEDS: FOLIC ACID 1 MG TAB PO SCH (13:07)
[2016-11-25] MEDS: MULTIVITAMINS, THERA 1 EACH TAB PO SCH (13:07)
[2016-11-25 15:31] VITALS: BMI 29.1
[2016-11-25 17:21] LABS: Glucose,Whole Blood 107 mg/dL (75-99)
--- NOTE | 2016-11-25 17:23 | P.PN ---
Subjective Date of service 11/25/2016. Progress note being dictated for Dr. Jacome. Interval history: This 41-year-old gentleman admitted with sepsis, right middle lobe pneumonia-possibly bilateral, acute alcoholic hepatitis, alcohol withdrawal , pancytopenia, pancreatitis and multiple other medical issues. Maintained on CIWA protocol, seizure precautions. Less sedated today. Lethargic, sensorium mildly improved this morning, verbalizing minimally, good diet intake at breakfast and lunch. Evaluated by psychiatry with recommendations noted .Chest x-ray reporting improving persistent right upper lobe infiltrate. Afebrile. Objective - Vital Signs Vital signs: Vital Signs Temp 96.9 F L 11/25/16 14:30 Pulse 89 11/25/16 14:30 Resp 19 11/25/16 14:30 BP 110/67 11/25/16 14:30 Pulse Ox 96 11/25/16 14:30 Intake & Output 11/24/16 11/25/16 11/25/16 18:59 06:59 18:59 Intake Total 1190 250 Output Total 500 Balance 1190 -250 Weight 79.379 kg Intake: Intake, IV Titration 650 50 Amount Piperacillin-Tazobactam 3 50 50 .375 gm In Dextrose/Water 1 50ml.bag @ 12.5 mls/hr IVPB Q8HR [facility] Rx#: [id number] Sodium Chloride 0.9% 1, 600 000 ml @ 75 mls/hr IV . [id number] ONE with Mvi, Adult No.4 with Vit K 10 ml with Thiamine 100 mg with Folic Acid 1 mg Rx#: [id number] Oral 540 200 Output: Urine 500 Other: # Voids 3 2 # Bowel Movements 0 - Exam PHYSICAL EXAM: VITAL SIGNS: As above GENERAL: Lying in bed, lethargic, A & O 1, minimally conversing HEENT: conjunctiva normal.] NECK: [Supple, no JVD] RESPIRATORY EFFORT: Normal] LUNGS: Bilateral bases diminished, scattered rhonchi throughout CARDIOVASCULAR regular S1 and S2, no murmurs rubs or gallops, no edema GI: [Abdomen soft, nontender, no organomegaly, positive bowel sounds] - Labs CBC & Chem 7: 11/25/16 08:03 11/25/16 08:03 Labs: Abnormal Lab Results - Last 24 Hours (Table) 11/24/16 11/24/16 11/25/16 Range/Units 16:49 20:11 07:49 Plt Count (150-450) k/uL Lymphocytes # (1.0-4.8) k/uL Chloride (98-107) mmol/L Carbon Dioxide (22-30) mmol/L Creatinine (0.66-1.25) mg/dL Glucose (74-99) mg/dL POC Glucose (mg/dL) 118 H 141 H 107 H (75-99) mg/dL 11/25/16 11/25/16 11/25/16 Range/Units 08:03 08:03 11:39 Plt Count 38 L* (150-450) k/uL Lymphocytes # 0.5 L (1.0-4.8) k/uL Chloride 111 H (98-107) mmol/L Carbon Dioxide 16 L (22-30) mmol/L Creatinine 0.51 L (0.66-1.25) mg/dL Glucose 104 H (74-99) mg/dL POC Glucose (mg/dL) 151 H (75-99) mg/dL Microbiology - Last 24 Hours (Table) 11/20/16 13:28 Blood Culture - Preliminary Blood No Growth after 120 hours Assessment and Plan Plan: 1. [Sepsis secondary to right middle lobe pnumonia, possible aspiration and sepsis present on admission. 2. Change in mental status with acute DTs secondary to alcohol withdrawal syndrome, in a patient with alcohol abuse, alcohol dependence.. 3.[Acute alcoholic hepatitis in a patient with history of liver cirrhosis]. 4.Bicytopenia secondary to bone marrow suppression related to chronic alcoholism ]. 5. Acute exacerbation of COPD 6. Atelectasis 7. [Mild nonspecific elevation of lipase, doubt pancreatitis at this time, in a patient with chronic pancreatitis]. 8. Hyponatremia, secondary to dehydration related to alcohol abuse 9. ADHD, ADD 9. Ongoing nicotine dependence Plan: Continue on current medication regime , antibiotics,CIWA protocol, nebulized bronchodilators, steroids, monitoring and symptomatic treatment. Hematology recommendations noted. Psychiatry recommendations noted including referral to substance abuse treatment program at discharge. Seizure /aspiration precautions. Aggressive pulmonary toileting. Prognosis guarded given multiple complex medical issues. The impression and plan of care has been dictated as directed. : I performed a H&P examination of this patient and discussed the same with the dictator. I agree with the dictator's note. Any additional findings/opinions/ etc. will be noted.
[2016-11-25 21:03] LABS: Glucose,Whole Blood 142 mg/dL (75-99)
[2016-11-26] MEDS: SYMBICORT 160-4.5 MCG INHALER INHALATION SCH ×2 (07:12→19:37)
[2016-11-26 07:44] LABS: Glucose,Whole Blood 119 mg/dL (75-99)
[2016-11-26] MEDS: PANTOPRAZOLE 40 MG TABLET PO SCH ×2 (08:19→17:55)
[2016-11-26] MEDS: AZITHROMYCIN 500 MG TAB PO SCH (08:19)
[2016-11-26] MEDS: FLUCONAZOLE 100 MG TAB PO SCH (08:20)
[2016-11-26] MEDS: INSULIN LISPRO (humaLOG) 300 UNIT/3 ML VIAL SQ SCH ×4 (08:21→22:00)
[2016-11-26] MEDS: PIPERACILLIN-TAZOBACTAM 3.375 GM in DEXTROSE/WATER 1 50ML.BAG IVPB SCH ×2 (10:57→17:50)
[2016-11-26] MEDS: methylPREDNISolone SOD SUCCI 40 MG/ML 1 ML VIAL IV SCH (11:06)
[2016-11-26 11:39] LABS: Glucose,Whole Blood 176 mg/dL (75-99)
[2016-11-26] MEDS: MULTIVITAMINS, THERA 1 EACH TAB PO SCH (12:31)
[2016-11-26] MEDS: predniSONE 20 MG TAB PO SCH (12:31)
[2016-11-26] MEDS: FOLIC ACID 1 MG TAB PO SCH (12:31)
[2016-11-26] MEDS: THIAMINE 100 MG TAB PO SCH ×2 (12:31→17:55)
--- NOTE | 2016-11-26 13:52 | P.PN ---
Subjective Principal diagnosis: Right middle lobe pneumonia This is a pleasant 41-year-old gentleman who has no current primary care physician. He has a history of seizure disorders and did have epilepsy as a child but has not been on any medications as an adult. Has has a history of alcoholism and seizure related alcohol withdrawals in the past. He had trach as much as a fifth of whiskey a day but states he is down to just 6 beers daily. He's had a history of pancreatitis, ADHD, psoriasis. The patient did have significant pneumonia requiring intubation mechanical ventilation with sepsis back in 2012. We have seen the patient at that time apparently. Since then he denied having any recurrent episodes of pneumonia or hospitalizations. He has a current smoker and has been smoking since age of 14. He has not been on any inhalers at home. No oxygen. He presented here on 11/18/2016 with complaints of increasing shortness of breath cough and congestion. He also had some nausea without vomiting, abdominal discomfort and diarrhea. His chest x- ray does show evidence of a right middle lobe pneumonia. There is also noted increased density/atelectasis in the left lung base. Blood cultures reveal no growth after 72 hours. Urine culture reveals no growth. He is seen today again in follow-up on 11/26/2016. He is more awake and alert than he has been the last couple of days. He has not had any active seizure activity. No worsening delirium tremens. He denies any worsening shortness of breath, cough or congestion. He is maintaining good O2 saturations in the upper 90s on room air. Afebrile. Objective - Vital Signs Vital signs: Vital Signs Temp 96.9 F L 11/26/16 07:00 Pulse 112 H 11/26/16 07:00 Resp 16 11/26/16 07:00 BP 125/79 11/26/16 07:00 Pulse Ox 97 11/26/16 07:00 Intake & Output 11/25/16 11/26/16 11/26/16 18:59 06:59 18:59 Intake Total 50 Balance 50 Weight 79.379 kg Intake: Intake, IV Titration 50 Amount Piperacillin-Tazobactam 3 50 .375 gm In Dextrose/Water 1 50ml.bag @ 12.5 mls/hr IVPB Q8HR [facility] Rx#: [id number] Other: # Voids 2 2 - Exam GENERAL EXAM: Alert, oriented, cooperative. HEAD: Normocephalic. EYES: Normal reaction of pupils, equal size. NOSE: Clear with pink turbinates. THROAT: No erythema or exudates. NECK: No masses, no JVD. CHEST: No chest wall deformity. LUNGS: Equal air entry with crackles in the right lung. Diminished. CVS: S1 and S2 normal with no audible murmurs, regular rhythm. ABDOMEN: No hepatosplenomegaly, normal bowel sounds, no guarding or rigidity. SPINE: No scoliosis or deformity SKIN: No rashes CENTRAL NERVOUS SYSTEM: No focal deficits, tone is normal in all 4 extremities. Extremities: There is no peripheral edema. No clubbing, no cyanosis. Peripheral pulses are intact. - Labs CBC & Chem 7: 11/25/16 08:03 11/25/16 08:03 Labs: Abnormal Lab Results - Last 24 Hours (Table) 11/25/16 11/25/16 11/26/16 Range/Units 17:08 21:00 07:43 POC Glucose (mg/dL) 107 H 142 H 119 H (75-99) mg/dL 11/26/16 Range/Units 11:37 POC Glucose (mg/dL) 176 H (75-99) mg/dL Microbiology - Last 24 Hours (Table) 11/20/16 13:28 Blood Culture - Preliminary Blood No Growth after 120 hours Assessment and Plan Plan: Impression: #1 Dyspnea, multifactorial, secondary to a right middle lobe pneumonia suspect community-acquired. Cannot rule out aspiration pneumonia on as the patient utilizes excessive alcohol daily. Follow-up chest x-ray reveals stable right mid lung pneumonia. Also possible exacerbation of suspected chronic obstructive pulmonary disease with chronic and ongoing nicotine addiction. #2 Chronic and ongoing tobacco dependence. #3 Chronic and ongoing alcoholism. #4 Bicytopenia suspected secondary to alcoholic liver disease. Hematology has been consulted. #5 Elevated liver enzymes secondary to alcoholism. #6 Hyponatremia secondary to excessive alcohol intake. #7 History of ventilatory dependent respiratory failure secondary to pneumonia// sepsis in 2013. #8 History of ADD. #9 Pancreatitis. Plan: The patient was seen and evaluated by Dr. Robledo. The patient is more awake and alert and stable from the pulmonary critical care standpoint. He could be discharged home on his bronchodilators, prednisone taper, complete his course of antibiotics. If not home today, will see the patient on as-needed basis. He should follow-up in our office in 1-2 weeks' time.
--- NOTE | 2016-11-26 16:03 | P.PN ---
Subjective Date of service 11/26/2016. Progress note being dictated for Dr. Jacome. Interval history: This 41-year-old gentleman admitted with sepsis, right middle lobe pneumonia-possibly bilateral, acute alcoholic hepatitis, alcohol withdrawal , pancytopenia, pancreatitis and multiple other medical issues. Maintained on CIWA protocol, seizure precautions. More alert today, sensorium significantly improved. Generalized weakness, evaluated by PT/OT, subacute rehab, care recommended. Afebrile. Objective - Vital Signs Vital signs: Vital Signs Temp 97 F L 11/26/16 15:00 Pulse 97 11/26/16 15:00 Resp 18 11/26/16 15:00 BP 117/77 11/26/16 15:00 Pulse Ox 97 11/26/16 15:00 Intake & Output 11/25/16 11/26/16 11/26/16 18:59 06:59 18:59 Intake Total 50 0 Balance 50 0 Weight 79.379 kg Intake: Intake, IV Titration 50 0 Amount Piperacillin-Tazobactam 3 50 0 .375 gm In Dextrose/Water 1 50ml.bag @ 12.5 mls/hr IVPB Q8HR [facility] Rx#: [id number] Other: # Voids 2 2 - Exam PHYSICAL EXAM: VITAL SIGNS: As above GENERAL: Lying in bed, lethargic, A & O 2, HEENT: conjunctiva normal.] NECK: [Supple, no JVD] RESPIRATORY EFFORT: Normal] LUNGS: Bilateral bases diminished, scattered rhonchi throughout CARDIOVASCULAR regular S1 and S2, no murmurs rubs or gallops, no edema GI: [Abdomen soft, nontender, no organomegaly, positive bowel sounds] - Labs CBC & Chem 7: 11/25/16 08:03 11/25/16 08:03 Labs: Abnormal Lab Results - Last 24 Hours (Table) 11/25/16 11/25/16 11/26/16 Range/Units 17:08 21:00 07:43 POC Glucose (mg/dL) 107 H 142 H 119 H (75-99) mg/dL 11/26/16 Range/Units 11:37 POC Glucose (mg/dL) 176 H (75-99) mg/dL Microbiology - Last 24 Hours (Table) 11/20/16 13:28 Blood Culture - Final Blood No Growth after 144 hours Assessment and Plan Plan: 1. [Sepsis secondary to right middle lobe pnumonia, possible aspiration and sepsis present on admission. 2. Change in mental status with acute DTs secondary to alcohol withdrawal syndrome, in a patient with alcohol abuse, alcohol dependence.. 3.[Acute alcoholic hepatitis in a patient with history of liver cirrhosis]. 4.Bicytopenia secondary to bone marrow suppression related to chronic alcoholism ]. 5. Acute exacerbation of COPD 6. Atelectasis 7. [Mild nonspecific elevation of lipase, doubt pancreatitis at this time, in a patient with chronic pancreatitis]. 8. Hyponatremia, secondary to dehydration related to alcohol abuse 9. ADHD, ADD 10. Ongoing nicotine dependence Plan: Continue on current medication regime , antibiotics,CIWA protocol, nebulized bronchodilators, steroids, monitoring and symptomatic treatment. Initially had planned for discharge today , but patient presenting with significant generalized weakness, evaluated by PT/OT who recommended 24 7 supervision for standing, high risk for falls. Staff attempting to reach family. Social work consulted to assist with discharge planning. The impression and plan of care has been dictated as directed. : I performed a H&P examination of this patient and discussed the same with the dictator. I agree with the dictator's note. Any additional findings/opinions/ etc. will be noted.
[2016-11-26 16:30] LABS: Glucose,Whole Blood 105 mg/dL (75-99)
[2016-11-26 21:33] LABS: Glucose,Whole Blood 172 mg/dL (75-99)
[2016-11-26 23:48] VITALS: RESP 16
[2016-11-27] MEDS: PIPERACILLIN-TAZOBACTAM 3.375 GM in DEXTROSE/WATER 1 50ML.BAG IVPB SCH ×2 (00:09→08:30)
[2016-11-27 07:29] LABS: Glucose,Whole Blood 79 mg/dL (75-99)
[2016-11-27] MEDS: SYMBICORT 160-4.5 MCG INHALER INHALATION SCH (07:31)
[2016-11-27] MEDS: INSULIN LISPRO (humaLOG) 300 UNIT/3 ML VIAL SQ SCH ×2 (08:30→13:17)
[2016-11-27] MEDS: PANTOPRAZOLE 40 MG TABLET PO SCH (08:32)
[2016-11-27] MEDS: predniSONE 20 MG TAB PO SCH (08:33)
[2016-11-27] MEDS: FLUCONAZOLE 100 MG TAB PO SCH (08:33)
[2016-11-27] MEDS: AZITHROMYCIN 500 MG TAB PO SCH (08:33)
[2016-11-27] MEDS: FOLIC ACID 1 MG TAB PO SCH (11:42)
[2016-11-27] MEDS: THIAMINE 100 MG TAB PO SCH (11:43)
[2016-11-27] MEDS: MULTIVITAMINS, THERA 1 EACH TAB PO SCH (11:43)
[2016-11-27 12:02] LABS: Glucose,Whole Blood 112 mg/dL (75-99)
[2016-11-27 15:11] VITALS: BP 113/71; PULSE 95; TEMP 97.3
--- NOTE | 2016-11-27 17:48 | P.DS ---
Providers Date of admission: 11/18/16 10:15 Expected date of discharge: 11/27/16 Attending physician: MD Dr. Ayaz Bustamante. Consults: 11/20/16 11:54 Consult Physician Routine Consulting Provider: Adam Leigh Consult Reason/Comments: pneumonia Do you want consulting provider notified?: Yes 11/21/16 13:01 Consult Physician Routine Consulting Provider: Nick Sharma Consult Reason/Comments: Pancytopenia Do you want consulting provider notified?: Yes 11/23/16 11:45 Consult Physician Routine Consulting Provider: Dileep Mae Consult Reason/Comments: etoh/dt's Do you want consulting provider notified?: Already Contacted Primary care physician: Stated None Bette Gutierrez Hospital Course: Final Diagnoses: 1. Sepsis secondary to right middle lobe pnumonia, possible aspiration and sepsis present on admission. Completed antibiotic regimen. 2. Change in mental status with acute DTs secondary to alcohol withdrawal syndrome, in a patient with alcohol abuse, alcohol dependence.. 3. Acute alcoholic hepatitis in a patient with history of liver cirrhosis]. 4. Bicytopenia secondary to bone marrow suppression related to chronic alcoholism]. 5. Acute exacerbation of COPD 6. Atelectasis 7. Mild nonspecific elevation of lipase, doubt pancreatitis at this time, in a patient with chronic pancreatitis]. 8. Hyponatremia, secondary to dehydration related to alcohol abuse 9. ADHD, ADD 9. Ongoing nicotine dependence 10 Gait dysfunction: PT recommends 24/ 7 supervision when patient standing, high risk for falls. Declining rehab. Patient's family verbalizes to staff that patient will have 24 7 supervision at home. Hospital course:This is a 41-year-old gentleman admitted with sepsis, right middle lobe pneumonia-possibly bilateral, acute alcoholic hepatitis, alcohol withdrawal, pancytopenia, pancreatitis and multiple other medical issues. Maintained on CIWA protocol, seizure precautions, IV fluids and antibiotics. Significant clinical improvement. Evaluated by psychiatry, pulmonary, and PT. Outpatient Substance abuse rehab program recommended at discharge. Cleared for discharge by all consults. Patient is being discharged home with in a stable condition with guarded prognosis. Patient Condition at Discharge: Stable Plan - Discharge Summary New Discharge Prescriptions: Albuterol Inhaler [Ventolin Hfa Inhaler] 2 puff INHALATION Q6HR #1 inhaler Folic Acid 1 mg PO DAILY@1200 #30 tab LORazepam [Ativan] 1 mg PO TID PRN #20 tab PRN Reason: Anxiety Multivitamins, Thera [Multivitamin] 1 each PO DAILY@1200 #30 tab Thiamine [Vitamin B-1] 100 mg PO BID@1200,1700 #30 tab predniSONE 10 mg PO DIRECTED #30 tab Discharge Medication List Fexofenadine/Pseudoephedrine [Lauren-D 12 Hour Tablet] 1 tab PO BID PRN [History] Acetaminophen Tab [Tylenol] 650 mg PO Q6HR PRN #0 tab 11/21/16 [Rx] Albuterol Inhaler [Ventolin Hfa Inhaler] 2 puff INHALATION Q6HR #1 inhaler 11/21 [Rx] Folic Acid 1 mg PO DAILY@1200 #30 tab 11/21/16 [Rx] LORazepam [Ativan] 1 mg PO TID PRN #20 tab 11/21/16 [Rx] Multivitamins, Thera [Multivitamin] 1 each PO DAILY@1200 #30 tab 11/21/16 [Rx] Thiamine [Vitamin B-1] 100 mg PO BID@1200,1700 #30 tab 11/21/16 [Rx] predniSONE 10 mg PO DIRECTED #30 tab 11/26/16 [Rx] Follow up Appointment(s)/Referral(s): Adam Leigh MD [STAFF PHYSICIAN] - 2 Weeks Bette Gutierrez MD [STAFF PHYSICIAN] - 12/01/16 Ambulatory/Diagnostic Orders: Complete Blood Count w/diff [LAB.AMB] Time Frame: 3 Days, Location: Determined By Patient Patient Instructions/Handouts: Pancreatitis (DC), Abuse of Alcohol (DC) Activity/Diet/Wound Care/Special Instructions: Regular diet. Home with family NO alcohol use, to attend NO smoking, cessation information provided. Discharge Disposition: HOME SELF-CARE
== END 2016-11-27 16:08 | disposition home or self-care (01) | DRG 871 ==
LOC: EC 06:23 → 4MS4W 10:15
PROVIDERS: ADMIT Internal Medicine; ATTEND Internal Medicine
DX: A41.9 Sepsis, unspecified organism (principal); J13 Pneumonia due to Streptococcus pneumoniae; D61.818 Other pancytopenia; F10.231 Alcohol dependence with withdrawal delirium; K70.30 Alcoholic cirrhosis of liver without ascites; E87.1 Hypo-osmolality and hyponatremia; J44.0 Chronic obstructive pulmonary disease with (acute) lower respiratory infection; K86.1 Other chronic pancreatitis; J44.1 Chronic obstructive pulmonary disease with (acute) exacerbation; J98.11 Atelectasis; K70.10 Alcoholic hepatitis without ascites; E86.0 Dehydration; D47.3 Essential (hemorrhagic) thrombocythemia; F12.90 Cannabis use, unspecified, uncomplicated; F17.200 Nicotine dependence, unspecified, uncomplicated; F90.9 Attention-deficit hyperactivity disorder, unspecified type; K29.20 Alcoholic gastritis without bleeding; Y95 Nosocomial condition; Z82.49 Family history of ischemic heart disease and other diseases of the circulatory system; Z79.4 Long term (current) use of insulin; Z79.899 Other long term (current) drug therapy
CPT/HCPCS: 36415; 70450; 71010; 71020; 71275; 74000; 80048; 80053; 80320; 81003; 82150; 82607; 82747; 83036; 83605; 83690; 83735; 85025; 85610; 85730; 86038; 86431; 87040; 87070; 87086; 87205; 87389; 94640; 94760; 96361; 96365; 96375; 99285

== ENCOUNTER 2017-04-07 19:23 | Inpatient (IN) | payer OTHER ==
--- NOTE | 2017-04-07 21:14 | ED ---
General Adult HPI - General Chief complaint: Abdominal Pain Stated complaint: Abd Pain Time Seen by Provider: 04/07/17 19:57 Source: patient, RN notes reviewed Mode of arrival: ambulatory Limitations: no limitations - History of Present Illness Initial comments: patient is a 41-year-old male presents emergency room for evaluation of abdominal distention and rash. Patient states his abdomen has been distended for the past 2 months. Patient does state he is an alcoholic. Patient states he has about 8-12 beers per day. Patient does state he had only 2 beers today. Patient states he has not followed up with a physician regarding his abdominal distention yet. Patient does state he is having pain in his right upper quadrant and left upper quadrant. Patient does state he has a history of pancreatitis. Patient denies any history of liver failure. Patient denies any surgeries on his abdomen. Patient denies any pain or burning during urination, trouble urinating or blood in urine. Patient denies nausea or vomiting. Patient denies chest pain or shortness of breath. Patient denies taking medications. Patient also states he's been dealing with a rash all over his body for the past 6 months. Patient states he's followed up with his physician regarding this rash and he was told it was psoriasis. Patient states the rash is been getting worse over the past 2 weeks on his upper thighs. Patient states he constantly scratches at the area another scabbing forming. Patient denies any fevers or chills. - Related Data Previous Rx's Medication Instructions Recorded Multivitamins, Thera [Multivitamin 1 each PO DAILY@1200 #30 tab 11/21/16 (formulary)] Allergies Allergy/AdvReac Type Severity Reaction Status Date / Time No Known Allergies Allergy Verified 04/08/17 03:04 Review of Systems ROS Statement: Those systems with pertinent positive or pertinent negative responses have been documented in the HPI. ROS Other: All systems not noted in ROS Statement are negative. Past Medical History Past Medical History: Pneumonia, Seizure Disorder Additional Past Medical History / Comment(s): EPILEPSY CHILD-HAS'NT BEEN ON MEDS FOR SEIZURES SINCE AGE 11 OR 12. chronic etoh abuse, seizure related to alcohol withdrawal as well as delirium tremors, pneumonia /SEPSIS IN 2012 WAS VENTILATED, PSORIASES, PANCREATITIS. History of Any Multi-Drug Resistant Organisms: None Reported Past Surgical History: Orthopedic Surgery Additional Past Surgical History / Comment(s): RIGHT ANKLE- PLATES AND SCREWS, gastro tube, tracheostomy. Past Anesthesia/Blood Transfusion Reactions: No Reported Reaction Past Psychological History: ADD/ADHD, Anxiety, Depression Additional Psychological History / Comment(s): Pt resides with his spouse. He is independent. Smoking Status: Current every day smoker Past Alcohol Use History: Daily Additional Past Alcohol Use History / Comment(s): STARTED SMOKING AGE 14 1/2 [employer]. Pt now down to drinking 6 beers in a day. Last drank 11/16/16 before feeling ill. Past Drug Use History: Marijuana Additional Drug Use History / Comment(s): Pt states he will smoke marijuana on occasion but not daily. - Past Family History Father Family Medical History: Myocardial Infarction (HI) Additional Family Medical History / Comment(s): PULMOPNARY FIBROSIS AND HEART PROBLEMS. Father at the age of 65yrs from multiple medical problems. Mother Family Medical History: Cancer Additional Family Medical History / Comment(s): SKIN CANCER, DEPRESSION. AGORAPHOBIA. Mother is 63 yrs old. General Exam - General Exam Comments Initial Comments: laying in exam room, no acute distress. Limitations: no limitations General appearance: alert, in no apparent distress Head exam: Present: atraumatic, normocephalic, normal inspection Eye exam: Present: normal appearance Pupils: Present: normal accommodation ENT exam: Present: normal exam Neck exam: Present: normal inspection Respiratory exam: Present: normal lung sounds bilaterally. Absent: respiratory distress Cardiovascular Exam: Present: regular rate, normal rhythm, normal heart sounds GI/Abdominal exam: Present: distended Extremities exam: Present: normal inspection Back exam: Present: normal inspection Neurological exam: Present: alert, oriented X3, CN II-XII intact, normal gait Psychiatric exam: Present: normal affect, normal mood Skin exam: Present: warm, dry, intact, normal color, other (scabbing/plaque like lesions over anterior thighs. Scaly/plaque like lesions over diffuse body) Course Vital Signs 04/07/17 04/07/17 04/07/17 19:25 21:13 22:51 Temperature 97.6 F 97.8 F Pulse Rate 95 89 88 Respiratory 18 18 18 Rate Blood Pressure 130/83 127/74 131/72 O2 Sat by Pulse 97 95 96 Oximetry 04/08/17 04/08/17 01:20 02:28 Temperature 98.2 F 98.1 F Pulse Rate 89 91 Respiratory 18 18 Rate Blood Pressure 126/81 118/70 O2 Sat by Pulse 99 95 Oximetry Medical Decision Making - Medical Decision Making patient is a 41-year-old male presents emergency room. Evaluation of abdominal distention [address] evidence of pelvic cirrhosis and portal venous hypertension. Patient started on Lasix and spironolactone. Patient will be admitted for further evaluation. Case discussed with Dr. Aldridge who will discuss case with Dr. Madison. - Lab Data Result diagrams: 04/07/17 21:00 04/07/17 21:00 Lab Results 04/07/17 04/07/17 04/07/17 Range/Units 21:00 21:00 21:00 WBC 2.7 L (3.8-10.6) k/uL RBC 3.55 L (4.30-5.90) m/uL Hgb 12.3 L (13.0-17.5) gm/dL Hct 36.2 L (39.0-53.0) % MCV 102.0 H (80.0-100.0) fL MCH 34.7 (25.0-35.0) pg MCHC 34.0 (31.0-37.0) g/dL RDW 15.7 H (11.5-15.5) % Plt Count 27 L* (150-450) k/uL Neutrophils % 60 % Lymphocytes % 16 % Monocytes % 10 % Eosinophils % 10 % Basophils % 1 % Neutrophils # 1.6 (1.3-7.7) k/uL Lymphocytes # 0.4 L (1.0-4.8) k/uL Monocytes # 0.3 (0-1.0) k/uL Eosinophils # 0.3 (0-0.7) k/uL Basophils # 0.0 (0-0.2) k/uL Manual Slide Review Performed Macrocytosis Slight Target Cells Present PT 14.1 H (9.0-12.0) sec INR 1.4 (<1.1) Sodium 141 (137-145) mmol/L Potassium 3.9 (3.5-5.1) mmol/L Chloride 112 H (98-107) mmol/L Carbon Dioxide 22 (22-30) mmol/L Anion Gap 7 mmol/L BUN 9 (9-20) mg/dL Creatinine 0.47 L (0.66-1.25) mg/dL Est GFR (MDRD) Af Amer >60 (>60 ml/min/1.73 sqM) Est GFR (MDRD) Non-Af >60 (>60 ml/min/1.73 sqM) Glucose 100 H (74-99) mg/dL Calcium 7.1 L (8.4-10.2) mg/dL Total Bilirubin 1.7 H (0.2-1.3) mg/dL AST 98 H (17-59) U/L ALT 34 (21-72) U/L Alkaline Phosphatase 266 H (38-126) U/L Ammonia (<30) umol/L Total Protein 7.3 (6.3-8.2) g/dL Albumin 2.5 L (3.5-5.0) g/dL Amylase 106 (30-110) U/L Lipase 606 H (23-300) U/L Urine Color Urine Appearance (Clear) Urine pH (5.0-8.0) Ur Specific Willard (1.001-1.035) Urine Protein (Negative) Urine Glucose (UA) (Negative) Urine Ketones (Negative) Urine Blood (Negative) Urine Nitrite (Negative) Urine Bilirubin (Negative) Urine Urobilinogen (<2.0) mg/dL Ur Leukocyte Esterase (Negative) Serum Alcohol 238 mg/dL 04/07/17 04/08/17 Range/Units 22:00 01:10 WBC (3.8-10.6) k/uL RBC (4.30-5.90) m/uL Hgb (13.0-17.5) gm/dL Hct (39.0-53.0) % MCV (80.0-100.0) fL MCH (25.0-35.0) pg MCHC (31.0-37.0) g/dL RDW (11.5-15.5) % Plt Count (150-450) k/uL Neutrophils % % Lymphocytes % % Monocytes % % Eosinophils % % Basophils % % Neutrophils # (1.3-7.7) k/uL Lymphocytes # (1.0-4.8) k/uL Monocytes # (0-1.0) k/uL Eosinophils # (0-0.7) k/uL Basophils # (0-0.2) k/uL Manual Slide Review Macrocytosis Target Cells PT (9.0-12.0) sec INR (<1.1) Sodium (137-145) mmol/L Potassium (3.5-5.1) mmol/L Chloride (98-107) mmol/L Carbon Dioxide (22-30) mmol/L Anion Gap mmol/L BUN (9-20) mg/dL Creatinine (0.66-1.25) mg/dL Est GFR (MDRD) Af Amer (>60 ml/min/1.73 sqM) Est GFR (MDRD) Non-Af (>60 ml/min/1.73 sqM) Glucose (74-99) mg/dL Calcium (8.4-10.2) mg/dL Total Bilirubin (0.2-1.3) mg/dL AST (17-59) U/L ALT (21-72) U/L Alkaline Phosphatase (38-126) U/L Ammonia 45 H (<30) umol/L Total Protein (6.3-8.2) g/dL Albumin (3.5-5.0) g/dL Amylase (30-110) U/L Lipase (23-300) U/L Urine Color Yellow Urine Appearance Clear (Clear) Urine pH 6.0 (5.0-8.0) Ur Specific Willard 1.013 (1.001-1.035) Urine Protein Negative (Negative) Urine Glucose (UA) Negative (Negative) Urine Ketones Negative (Negative) Urine Blood Negative (Negative) Urine Nitrite Negative (Negative) Urine Bilirubin Negative (Negative) Urine Urobilinogen 8.0 (<2.0) mg/dL Ur Leukocyte Esterase Negative (Negative) Serum Alcohol mg/dL - Radiology Data Radiology results: report reviewed, image reviewed Disposition Clinical Impression: Hepatic cirrhosis, Portal venous hypertension, Pancreatitis, Rash, Hypocalcemia Disposition: ADMITTED IP TO THIS [facility] Condition: Stable Decision Date: 04/08/17
[2017-04-07 21:15] LABS: Basophils % (A) 1 %; CH 34.1; CHCM 33.7; Eosinophils # (A) 0.3 k/uL (0-0.7); Eosinophils % (A) 10 %; HCT 36.2 % (39.0-53.0); HDW 2.22; HGB 12.3 gm/dL (13.0-17.5); Luc % (Auto) 4; Lymphocytes # (A) 0.4 k/uL (1.0-4.8); Lymphocytes % (A) 16 %; MCH 34.7 pg (25.0-35.0); Macrocytosis Slight; Mean Platelet Volume 10.3; Monocytes # (A) 0.3 k/uL (0-1.0); Monocytes % (A) 10 %; Neutrophils # (A) 1.6 k/uL (1.3-7.7); Neutrophils % (A) 60 %; RBC 3.55 m/uL (4.30-5.90); RDW 15.7 % (11.5-15.5); WBC 2.7 k/uL (3.8-10.6); WBC (Perox) 2.87
[2017-04-07 21:21] LABS: ALT 34 U/L (21-72); AST 98 U/L (17-59); Alkaline Phosphatase 266 U/L (38-126); Amylase 106 U/L (30-110); Anion Gap 7 mmol/L; Blood Urea Nitrogen 9 mg/dL (9-20); Calcium 7.1 mg/dL (8.4-10.2); Carbon Dioxide 22 mmol/L (22-30); Chloride 112 mmol/L (98-107); Glucose 100 mg/dL (74-99); Non-African American GFR(MDRD) >60 (>60 ml/min/1.73 sqM); Potassium 3.9 mmol/L (3.5-5.1); Sodium 141 mmol/L (137-145); Total Bilirubin 1.7 mg/dL (0.2-1.3); Total Protein 7.3 g/dL (6.3-8.2)
[2017-04-07 21:25] LABS: Alcohol 238 mg/dL
[2017-04-07 21:43] LABS: Manual Review Performed
[2017-04-07 21:44] LABS: Target Cells Present
[2017-04-07 22:16] LABS: Appearance,Urine Clear (Clear); Bilirubin,Urine Negative (Negative); Glucose,Urine (UA) Negative (Negative); Ketones,Urine Negative (Negative); Leukocyte Esterase,Urine Negative (Negative); Nitrite,Urine Negative (Negative); Protein,Urine Negative (Negative); Specific Gravity,Urine 1.013 (1.001-1.035); UA Billing (MACRO vs. MICRO) CHEM
[2017-04-07] MEDS ORDERED: RX INFO: IV CONTRAST WAS GIVEN 1 EACH MISC MISCELLANE PRN (22:45)
--- NOTE | 2017-04-08 00:01 | CT ---
EXAM: CT Abdomen and Pelvis With Intravenous Contrast CLINICAL HISTORY: Reason: Pain TECHNIQUE: Axial computed tomography images of the abdomen and pelvis with intravenous contrast. CTDI is 17.3 mGy and DLP is 732.0 mGy-cm. This CT exam was performed using one or more of the following dose reduction techniques: automated exposure control, adjustment of the mA and/or kV according to patient size, and/or use of iterative reconstruction technique. COMPARISON: CT chest 11/21/2016 FINDINGS: Lower thorax: Mild dependent atelectatic changes in both lung bases. ABDOMEN: Liver: Liver is contracted with lobulated border suggesting hepatic cirrhosis. No focal hepatic masses identified. Gallbladder and bile ducts: Gallbladder: Small calcified gallstone in region of gallbladder neck. No definite gallbladder wall thickening although gallbladder evaluation is limited due to surrounding ascites about the gallbladder fossa. No evidence of biliary dilatation. Pancreas: Pancreas is unremarkable. No ductal dilation. Spleen: Mild splenomegaly. Splenic varices and large amount of abdominal-pelvic ascites compatible with portal venous hypertension. Adrenals: No adrenal masses Kidneys and ureters: Normal renal enhancement and excretion of contrast. No evidence of hydronephrosis. No definite renal calculi identified. No focal renal masses. Stomach and bowel: Bowel: No evidence of bowel obstruction. Prominent apparent gastric wall thickening although gastric evaluation is limited due to nondistention of stomach. Diffuse small bowel wall thickening and apparent colonic wall thickening. Combination of findings are most suggestive of hepatic gastroenteropathy and colopathy in this patient with evidence of portal venous hypertension. Underlying gastroenteritis or colitis cannot be excluded. Sigmoid diverticulosis. Appendix: Appendix identified in the right lower quadrant with enhancement which is likely physiologic. No significant appendiceal thickening. No definite periappendiceal inflammatory changes although evaluation is limited due to surrounding ascites. No definite evidence of appendicitis. PELVIS: Bladder: Unremarkable. No mass. Reproductive: Unremarkable as visualized. ABDOMEN and PELVIS: Intraperitoneal space: See above. Large amount of abdominal-pelvic ascites. Bones/joints: No acute bony abnormalities Soft tissues: Small umbilical hernia containing ascites fluid. Vasculature: No evidence of abdominal aortic aneurysm. Mesenteric edematous changes likely related to portal venous hypertension and mesenteric congestion. Lymph nodes: No definite abnormal masses or lymphadenopathy. IMPRESSION: Evidence of hepatic cirrhosis and portal venous hypertension with large amount of abdominal-pelvic ascites. Apparent gastric, small bowel and colonic wall thickening most suggestive of hepatic gastroenteropathy and colopathy in this patient with evidence of portal venous hypertension. Mesenteric edematous changes also likely related to portal venous hypertension and venous congestion. Cholecystolithiasis. No definite evidence of appendicitis. Small umbilical hernia.
[2017-04-08] MEDS ORDERED: ONDANSETRON 4 MG/2 ML VIAL IVP PRN (00:58)
[2017-04-08] MEDS ORDERED: NALOXONE 0.4 MG/ML 1 ML VIAL IV PRN (00:58)
[2017-04-08] MEDS ORDERED: CALCIUM GLUCONATE 1,000 MG in SODIUM CHLORIDE 0.9% 100 ML IVPB ONE (01:03)
[2017-04-08] MEDS: SODIUM CHLORIDE 0.9% 1,000 ML IV SCH (01:20)
[2017-04-08] MEDS: HYDROmorphone 1 MG/ML 1 ML SYRINGE IV PRN ×5 (01:21→22:43)
[2017-04-08] MEDS ORDERED: THIAMINE 100 MG/ML 2 ML VIAL IM STA (01:30)
[2017-04-08 02:09] LABS: INR 1.4 (<1.1); Prothrombin Time 14.1 sec (9.0-12.0)
[2017-04-08 03:24] VITALS: BMI 22.7
[2017-04-08] MEDS: LORazepam 2 MG/ML SYRINGE IV PRN ×4 (03:57→21:50)
[2017-04-08] MEDS: SPIRONOLACTONE 25 MG TAB PO SCH (08:50)
[2017-04-08 10:07] LABS: Basophils % (A) 1 %; CH 33.7; Eosinophils # (A) 0.2 k/uL (0-0.7); Eosinophils % (A) 9 %; HCT 38.4 % (39.0-53.0); HDW 2.05; HGB 12.1 gm/dL (13.0-17.5); Luc # (Auto) 0.06; Luc % (Auto) 3; Lymphocytes # (A) 0.4 k/uL (1.0-4.8); Lymphocytes % (A) 17 %; MCH 33.4 pg (25.0-35.0); MCHC 31.5 g/dL (31.0-37.0); MCV 105.9 fL (80.0-100.0); Macrocytosis Moderate; Mean Platelet Volume 9.8; Monocytes # (A) 0.2 k/uL (0-1.0); Monocytes % (A) 9 %; Neutrophils # (A) 1.4 k/uL (1.3-7.7); Neutrophils % (A) 62 %; RBC 3.63 m/uL (4.30-5.90); RDW 15.8 % (11.5-15.5); WBC 2.2 k/uL (3.8-10.6); WBC (Perox) 2.46
[2017-04-08] MEDS: FUROSEMIDE 10 MG/ML 4 ML VIAL IV SCH (10:18)
[2017-04-08 10:48] LABS: ALT 35 U/L (21-72); AST 93 U/L (17-59); Alkaline Phosphatase 224 U/L (38-126); Anion Gap 8 mmol/L; Blood Urea Nitrogen 7 mg/dL (9-20); Calcium 7.6 mg/dL (8.4-10.2); Carbon Dioxide 23 mmol/L (22-30); Chloride 108 mmol/L (98-107); Glucose 90 mg/dL (74-99); Non-African American GFR(MDRD) >60 (>60 ml/min/1.73 sqM); Potassium 3.9 mmol/L (3.5-5.1); Sodium 139 mmol/L (137-145); Total Bilirubin 2.5 mg/dL (0.2-1.3); Total Protein 7.4 g/dL (6.3-8.2)
--- NOTE | 2017-04-08 15:38 | US ---
EXAMINATION TYPE: US abdomen limited DATE OF EXAM: 04/08/2017 COMPARISON: CT 04/07/2017 CLINICAL HISTORY: R/O ascites. Alcohol abuse Moderate amount of fluid seen within right side of abdomen. IMPRESSION: Moderate ascites. This is a limited exam.
[2017-04-08] MEDS: ceFAZolin 1,000 MG in DEXTROSE/WATER 1 50ML.BAG IVPB SCH ×2 (16:07→23:36)
[2017-04-08] MEDS: THIAMINE 100 MG TAB PO SCH (16:07)
[2017-04-08] MEDS ORDERED: HYDROCORTISONE 1% CREAM 30 GM TUBE TOPICAL PRN (17:08)
[2017-04-08] MEDS: diphenhydrAMINE 25 MG CAP PO PRN (18:14)
--- NOTE | 2017-04-08 21:05 | HP ---
DATE OF ADMISSION: 04/08/2017 CHIEF COMPLAINT: Abdominal pain. HISTORY OF PRESENT ILLNESS: This 41-year-old gentleman with a past medical history of multiple medical problems, including seizure disorder, history of DJD, history of ADD, ADHD, anxiety, depression, history of smoking, being followed by no primary physician in the outpatient setting, apparently had been drinking heavily. The patient also complained of abdominal distention as well as multiple rashes. The patient apparently had psoriasis, also. The patient drinks from 8 to 12 beers. The patient had an umbilical hernia as well. The patient was earlier admitted in November of this year to the hospital with features of right middle lobe pneumonia, alcoholic hepatitis, as well as COPD and multiple other medical issues. There is no history of any fever, rigor or chills at this time. Abdominal pelvis CT scan was done on admission which showed hepatic cirrhosis and portal venous hypertension, large amount of abdominopelvic ascites. Hepatic gastroenteropathy was also noted with portal hypertension with cholecystolithiasis also noted. Abdominal ultrasound showed moderate ascites. PAST MEDICAL HISTORY: 1. History of pneumonia. 2. Seizure disorder. 3. Epilepsy. 4. ADHD. 5. Anxiety, depression Medications prior to admission include multivitamins 1 p.o. daily. ALLERGIES: NONE. FAMILY HISTORY: History of myocardial infarction, pulmonary fibrosis and heart problems in the family. SOCIAL HISTORY: History of smoking marijuana as well as alcohol, as mentioned earlier. REVIEW OF SYSTEMS: ENT: No diminishing hearing. No diminished vision. CARDIOVASCULAR SYSTEM: No angina, palpitations. RESPIRATORY: As mentioned earlier. GI: As mentioned earlier. : No dysuria, retention. NERVOUS SYSTEM: No numbness or weakness. ALLERGY/IMMUNOLOGY: No asthma, hayfever. MUSCULOSKELETAL: As mentioned earlier. HEMATOLOGY/ONCOLOGY: No history of anemia. ENDOCRINE: No history of diabetes, hypothyroidism. CONSTITUTIONAL: As mentioned earlier. DERMATOLOGY: Negative. RHEUMATOLOGY: Negative. PSYCHIATRY: As mentioned earlier. PHYSICAL EXAMINATION: Patient is alert and oriented x3. Pulse 90, blood pressure 132/78, respiration 20, temperature 99.4, pulse ox 96% on room air. HEENT: Conjunctivae normal. Oral mucosa moist. NECK: No jugular venous distention. No carotid bruit. No lymph node enlargement. CARDIOVASCULAR SYSTEM: S1, S2 muffled. No S3. No S4. RESPIRATORY SYSTEM: Breath sounds diminished at the bases. A few scattered rhonchi and crackles. ABDOMEN: Soft, distended. Umbilical hernia present. Otherwise, ascites also present. No guarding. No rigidity. No mass palpable. Hepatomegaly present. Splenomegaly not appreciated. LEGS: Bilateral leg edema present. NERVOUS SYSTEM: Higher functions as mentioned earlier. Moves all 4 limbs. No focal motor or sensory deficit. SKIN: Diffuse skin rash present with overlapping scratching also. JOINTS: No active deforming arthropathy. LABS: WBC 2.2, hemoglobin 12.1. Platelets are 35. Sodium 139, potassium 3.9. Total bilirubin is 2.5. Alkaline phosphatase is 224. ASSESSMENT: 1. Abdominal pain with possible acute alcoholic hepatitis. 2. Cirrhosis of the liver with acute abdominal ascites as well as portal hypertension secondary to alcohol. 3. Cellulitis, diffuse. 4. Hypoalbuminemia with mild to moderate protein-calorie malnutrition. 5. Increased alkaline phosphatase. 6. Increased chloride. 7. Mild coagulopathy secondary to chronic liver disease. 8. Thrombocytopenia secondary to chronic liver disease. 9. Leukopenia and anemia secondary to chronic liver disease as well. 10. History of pneumonia. 11. History of seizure disorder. 12. History of nicotine dependence. 13. History of tetrahydrocannabinol. 14. History of delirium tremens. 15. History of attention deficit disorder, attention deficit hyperactivity disorder. 16. Anxiety, depression not otherwise specified. 17. FULL CODE. RECOMMENDATIONS AND DISCUSSION: In this 41-year-old gentleman who presented with multiple complex medical issues, we will monitor the patient closely, continue the current medication, continue with symptomatic treatment. Will initiate empiric antibiotics. Obtain cultures. Lasix. Otherwise, ascitic fluid aspiration and further studies. Gastroenterology will be consulted. Guarded prognosis because of multiple complex medical issues. CIWA protocol. Continue to monitor. 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 Prognosis extremely guarded. Discussed with the patient, who understands and agrees. Further recommendations to follow.
[2017-04-09] MEDS: diphenhydrAMINE 25 MG CAP PO PRN (00:28)
[2017-04-09] MEDS: LORazepam 2 MG/ML SYRINGE IV PRN ×4 (00:28→23:35)
[2017-04-09] MEDS: SODIUM CHLORIDE 0.9% 1,000 ML IV SCH (01:57)
[2017-04-09] MEDS ORDERED: HALOPERIDOL LACTATE 5 MG/ML 1 ML VIAL IM PRN (03:45)
[2017-04-09] MEDS: ceFAZolin 1,000 MG in DEXTROSE/WATER 1 50ML.BAG IVPB SCH ×3 (08:24→23:17)
[2017-04-09] MEDS: FUROSEMIDE 10 MG/ML 4 ML VIAL IV SCH (08:24)
[2017-04-09] MEDS: SPIRONOLACTONE 25 MG TAB PO SCH (08:25)
[2017-04-09 08:57] LABS: Basophils % (A) 1 %; CHCM 33.6; Eosinophils # (A) 0.2 k/uL (0-0.7); Eosinophils % (A) 5 %; HCT 38.2 % (39.0-53.0); HDW 2.18; HGB 12.9 gm/dL (13.0-17.5); Large Platelets Flag Slight; Luc % (Auto) 3; Lymphocytes # (A) 0.4 k/uL (1.0-4.8); Lymphocytes % (A) 10 %; MCH 34.4 pg (25.0-35.0); MCHC 33.9 g/dL (31.0-37.0); MCV 101.6 fL (80.0-100.0); Macrocytosis Slight; Mean Platelet Volume 10.1; Monocytes # (A) 0.4 k/uL (0-1.0); Monocytes % (A) 9 %; Neutrophils # (A) 2.8 k/uL (1.3-7.7); Neutrophils % (A) 73 %; RBC 3.76 m/uL (4.30-5.90); RDW 15.6 % (11.5-15.5); WBC 3.8 k/uL (3.8-10.6); WBC (Perox) 4.04
[2017-04-09 09:18] LABS: Anion Gap 5 mmol/L; Blood Urea Nitrogen 8 mg/dL (9-20); Calcium 7.9 mg/dL (8.4-10.2); Carbon Dioxide 24 mmol/L (22-30); Chloride 105 mmol/L (98-107); Glucose 87 mg/dL (74-99); Non-African American GFR(MDRD) >60 (>60 ml/min/1.73 sqM); Potassium 3.8 mmol/L (3.5-5.1); Sodium 134 mmol/L (137-145)
[2017-04-09] MEDS: LACTULOSE 20 GM/30 ML CUP PO SCH ×3 (09:41→20:48)
--- NOTE | 2017-04-09 10:32 | P.CONS ---
History of Present Illness - Reason for Consult Consult date: 04/09/17 Cirrhosis Requesting physician: Estephanie Madison - History of Present Illness 41-year-old male with a history of long-standing EtOH dependency abuse and with acute alcohol intoxication, hepatitis, pancreatitis, and hepatic encephalopathy. History of IVDA. Consultation requested for cirrhosis. Serum alcohol level 238. Hemoglobin 12.3. White count 2.7. Platelet 27,000. INR 1.4. Total bilirubin 1.7-2.5. AST 93-98. ALT 34-35. Alkaline phosphatase 224-to 66. Ammonia 45. Lipase 606. Hepatitis panel December [address] abdomen and pelvis contracted liver nodule appearance consistent with cirrhosis. Portal venous hypertension with large amount of abdominopelvic ascites. No evidence of biliary dilation. Small calcified gallstone in the gallbladder neck. No focal liver masses. Ultrasound gallbladder moderate ascites. Review of Systems Constitutional: Denies fever, chills, sweats, weight gain, or loss. HEENT: Negative for migraines, blurred vision or loss, earaches, drainage, tinnitus, oral mucosal lesions, dysphagia, or odynophagia. Cardiac: Negative for chest pain, arrhythmias, or palpitation. Respiratory: Pneumonia. Negative for shortness of breath, hemoptysis, cough, or sputum production. Gastrointestinal: See HPI for pertinent findings. Genitourinary: Negative for hematuria, urgency, frequency, polyuria, dysuria, or penile discharge. Musculoskeletal: Negative for muscle aches, swelling, arthritis, and arthralgias. Neurologic: Seizure disorder as a child. Negative for stroke or TIA. Endocrine: Negative for thyroid problems. Skin: Negative for rash or itching. Psychiatric: EtOH dependency abuse. Anxiety. Depression. ADHD. All systems: negative (See HPI) Past Medical History Past Medical History: Pneumonia, Seizure Disorder Additional Past Medical History / Comment(s): EPILEPSY CHILD-HAS'NT BEEN ON MEDS FOR SEIZURES SINCE AGE 11 OR 12. chronic etoh abuse, seizure related to alcohol withdrawal as well as delirium tremors, pneumonia /SEPSIS IN 2012 WAS VENTILATED, PSORIASES, PANCREATITIS. History of Any Multi-Drug Resistant Organisms: None Reported Past Surgical History: Orthopedic Surgery Additional Past Surgical History / Comment(s): RIGHT ANKLE- PLATES AND SCREWS, gastro tube, tracheostomy. Past Anesthesia/Blood Transfusion Reactions: No Reported Reaction Past Psychological History: ADD/ADHD, Anxiety, Depression Additional Psychological History / Comment(s): Pt resides with his spouse. He is independent. Smoking Status: Current every day smoker Past Alcohol Use History: Daily Additional Past Alcohol Use History / Comment(s): STARTED SMOKING AGE 14 1/2 [employer] SMOKER. Pt now down to drinking 6 beers in a day. Last drank 11/16/16 before feeling ill. Past Drug Use History: Marijuana Additional Drug Use History / Comment(s): Pt states he will smoke marijuana on occasion but not daily. - Past Family History Father Family Medical History: Myocardial Infarction ([place]) Additional Family Medical History / Comment(s): PULMOPNARY FIBROSIS AND HEART PROBLEMS. Father at the age of 65yrs from multiple medical problems. Mother Family Medical History: Cancer Additional Family Medical History / Comment(s): SKIN CANCER, DEPRESSION. AGORAPHOBIA. Mother is 63 yrs old. Medications and Allergies Home Medications Medication Instructions Recorded Confirmed Type Multivitamins, Thera [Multivitamin 1 tab PO DAILY@1200 04/08/17 04/08/17 History (formulary)] Allergies Allergy/AdvReac Type Severity Reaction Status Date / Time No Known Allergies Allergy Verified 04/08/17 09:05 Physical Exam Vitals: Vital Signs Temp Pulse Resp BP Pulse Ox 04/09/17 07:00 98.0 F 92 16 101/72 97 04/09/17 03:16 103 H 20 134/90 04/08/17 23:00 98.9 F 86 18 130/80 96 04/08/17 15:00 99.4 F 90 20 132/78 96 Intake and Output 04/08/17 04/09/17 04/09/17 22:59 06:59 14:59 Intake Total 160 50 Output Total 35 700 Balance 125 -650 Intake: IV 160 Sodium Chloride 0.9% 1, 160 000 ml @ 20 mls/hr IV . Q24H NAY Rx#:[id number] Intake, IV Titration 50 Amount ceFAZolin 1,000 mg In 50 Dextrose/Water 1 50ml.bag @ 100 mls/hr IVPB Q8HR NAY Rx#:[id number] Output: Drainage 35 Left Knee 20 Right Knee 15 Urine 700 Other: Voiding Method Urinal # Voids 2 General appearance: The patient is easily awakened but drowsy in no acute distress. Calm. HET: Head is normocephalic and atraumatic. Pupils are equal and reactive. Oropharynx is clear without lesions. Neck: Supple without lymphadenopathy. Trachea midline. Heart: S1 S2. Regular rate and rhythm. Lungs: No crackles or wheezes are heard. Abdomen: Soft, mildly distended with mild to moderate ascites with bowel sounds. No peritoneal signs. No palpable organomegaly or masses. Extremities: Normal skin color and turgor. No cyanosis, rash, ulceration, clubbing, or edema. Radial and pedal pulses are 2/4 bilaterally. Neurological: No focal deficits. Strength and sensation are grossly intact. Results CBC & Chem 7: 04/09/17 08:05 04/09/17 08:05 Labs: Abnormal Lab Results - Last 24 Hours (Table) 04/08/17 04/09/17 04/09/17 Range/Units 09:37 08:05 08:05 RBC 3.76 L (4.30-5.90) m/uL Hgb 12.9 L (13.0-17.5) gm/dL Hct 38.2 L (39.0-53.0) % MCV 101.6 H (80.0-100.0) fL RDW 15.6 H (11.5-15.5) % Plt Count 30 L* (150-450) k/uL Lymphocytes # 0.4 L (1.0-4.8) k/uL Sodium 134 L (137-145) mmol/L Chloride 108 H (98-107) mmol/L BUN 7 L 8 L (9-20) mg/dL Creatinine 0.54 L 0.51 L (0.66-1.25) mg/dL Calcium 7.6 L 7.9 L (8.4-10.2) mg/dL Total Bilirubin 2.5 H (0.2-1.3) mg/dL AST 93 H (17-59) U/L Alkaline Phosphatase 224 H (38-126) U/L Albumin 2.5 L (3.5-5.0) g/dL CT scan - abdomen: report reviewed (Dr. Hayes) US - abdomen: report reviewed (Dr. Hayes) Assessment and Plan (1) Alcoholic hepatitis with ascites Status: Acute (2) Alcohol-induced pancreatitis Status: Acute (3) Alcohol dependence Status: Acute (4) Alcohol intoxication Status: Acute (5) Alcoholic cirrhosis of liver with ascites Status: Acute (6) Hepatic encephalopathy Status: Acute (7) Thrombocytopenia Status: Acute (8) Coagulopathy Status: Acute (9) Cholelithiasis Status: Chronic Plan: 1. Interventional radiology was consulted for possible paracentesis however platelet count below 50,000 currently 30,000. 2. Would advise diuretic therapy to optimize abdominal ascites. Presently receiving Lasix and Aldactone. Continue with alcohol withdrawal protocol. Bedside sitter. Reevaluation for paracentesis can be pursued once patient's acute phase of alcohol intoxication has improved. She may require platelet transfusion prior to paracentesis. 3. Alcohol abstinence strongly advised. 4. Continue GI prophylaxis. Thank you for this kind referral and the opportunity to participate in the care of your patient. This consultation was discussed with Dr. Hayes. The impression and plan of care have been directed as dictated.
[2017-04-09] MEDS: THIAMINE 100 MG TAB PO SCH ×2 (11:43→16:26)
--- NOTE | 2017-04-09 16:06 | P.PN ---
Subjective Date of service 04/19/2017. Progress note being dictated for Dr. Madison. Interval history: This a 41-year-old gentleman admitted with abdominal pain, possible acute alcoholic hepatitis, cirrhosis of liver, ascites, portal hypertension and multiple other medical issues in a patient with history of IVDA. Maintained on CiWA protocol; required significant amounts of Ativan throughout the night in addition to Haldol as patient hallucinating ,crawling restless, agitated, delirious. Sitter at bedside. Ammonia 45. Evaluated by GI , no paracentesis recommended at this time, platelets 30. Hemoglobin 12.9. Sodium 134. Maintained on Lasix and Aldactone. Objective - Vital Signs Vital signs: Vital Signs Temp 97.3 F L 04/09/17 14:46 Pulse 97 04/09/17 14:46 Resp 16 04/09/17 14:46 BP 110/68 04/09/17 14:46 Pulse Ox 94 L 04/09/17 14:46 Intake & Output 04/08/17 04/09/17 04/09/17 18:59 06:59 18:59 Intake Total 210 Output Total 1000 735 Balance -1000 -525 Intake: IV 160 Sodium Chloride 0.9% 1, 160 000 ml @ 20 mls/hr IV . Q24H NAY Rx#:[id number] Intake, IV Titration 50 Amount ceFAZolin 1,000 mg In 50 Dextrose/Water 1 50ml.bag @ 100 mls/hr IVPB Q8HR NAY Rx#:[id number] Output: Drainage 35 Left Knee 20 Right Knee 15 Urine 1000 700 Other: Voiding Method Urinal # Voids 4 2 3 # Bowel Movements 1 - Exam PHYSICAL EXAM: VITAL SIGNS: As above GENERAL: [Currently calm, sitting up in bed, drowsy, confused, no acute distress.] HEENT: [Pupils equal conjunctiva normal. Dry oral mucosa] NECK: [Supple, no JVD] RESPIRATORY EFFORT:[ Normal] LUNGS: [Diminished, no wheezes rhonchi or crackles] CARDIOVASCULAR[ regular S1 and S2, no murmurs rubs or gallops, no edema] GI: [Abdomen soft, nontender, distended, moderate ascites, no guarding, positive bowel sounds.] PSYCH: [Alert and oriented -1, confused,cooperative] SKIN: Significant rash with scabs all over body ,worsening especially on extremities NEURO: Unable to fully assess, moves all 4 extremities, strength and sensation appear to be grossly intact - Labs CBC & Chem 7: 04/09/17 08:05 04/09/17 08:05 Labs: Abnormal Lab Results - Last 24 Hours (Table) 04/09/17 04/09/17 Range/Units 08:05 08:05 RBC 3.76 L (4.30-5.90) m/uL Hgb 12.9 L (13.0-17.5) gm/dL Hct 38.2 L (39.0-53.0) % MCV 101.6 H (80.0-100.0) fL RDW 15.6 H (11.5-15.5) % Plt Count 30 L* (150-450) k/uL Lymphocytes # 0.4 L (1.0-4.8) k/uL Sodium 134 L (137-145) mmol/L BUN 8 L (9-20) mg/dL Creatinine 0.51 L (0.66-1.25) mg/dL Calcium 7.9 L (8.4-10.2) mg/dL Assessment and Plan Plan: 1. [Abdominal pain with acute alcoholic hepatitis]. 2. [ Acute abdominal ascites with cirrhosis of the liver and portal hypertension secondary to alcohol]. 3. [ Diffuse cellulitis, rash, worsening]. 4. [ Hypoalbuminemia with mild to moderate protein calorie malnutrition]. 5. [ Acute Pancreatitis, alcohol induced]. 6. [ Coagulopathy secondary to chronic liver disease]. 7. [ Thrombocytopenia secondary to chronic liver disease]. 8. Leukopenia and anemia secondary to chronic liver disease as well 9. Alcohol intoxication with toxic metabolic encephalopathy 10. History of seizure disorder 11. History of nicotine dependence 12. History of THC use 13. Attention deficit, hyperactive disorder 14. Anxiety, depression, not otherwise specified 15. Hepatitis panel negative, 2015 Plan: Continue on current medication regime, empiric antibiotics, Lasix, Aldactone, monitoring and symptomatic treatment. Maintain CIWA protocol, monitor for DTs. Varnish Finisher to be maintained at bedside.No paracentesis at this time per interventional radiology related to platelet count. Follow closely with GI. Dermatology consulted for her worsening rash. Prognosis guarded given multiple complex medical issues. The impression and plan of care has been dictated as directed. : I performed a H&P examination of this patient and discussed the same with the dictator. I agree with the dictator's note. Any additional findings/opinions/ etc. will be noted.
[2017-04-09] MEDS ORDERED: BETAMETHASONE DIPROPIONATE 0.05% OINTMENT 45 GM TUBE TOPICAL SCH (21:00)
--- NOTE | 2017-04-09 22:53 | PN ---
DATE OF SERVICE: 04/09/2017 This 41 -year-old gentleman admitted with abdominal pain, acute alcoholic hepatitis, the patient is being closely monitored. The patient also has ascites also. Seen and evaluated the patient along with nurse practitioner. Please refer to the nurse practitioner notes and impression documented as a scribe for further information.
[2017-04-10 00:13] VITALS: BP 124/71; PULSE 93; RESP 19; TEMP 99
[2017-04-10] MEDS: SODIUM CHLORIDE 0.9% 1,000 ML IV SCH (01:01)
[2017-04-10] MEDS ORDERED: PANTOPRAZOLE 40 MG/10 ML VIAL IVP SCH (09:00)
--- NOTE | 2017-04-11 16:38 | DS ---
DATE OF ADMISSION: 04/08/2017 DATE OF DISCHARGE: 04/10/2017 FINAL DIAGNOSES: 1. Abdominal pain with acute alcoholic hepatitis. 2. Acute abdominal ascites with cirrhosis of the liver and portal hypertension secondary to alcohol. 3. Diffuse cellulitis and rash of undetermined etiology. 4. Hypoalbuminemia with mild to moderate protein calorie malnutrition. 5. Acute pancreatitis alcohol induced. 6. Coagulopathy secondary to chronic liver disease. 7. Thrombocytopenia secondary to chronic liver disease. 8. Leukopenia secondary to chronic liver disease. 9. Alcohol intoxication toxic metabolic encephalopathy. 10. History of seizure disorder. 11. History of nicotine dependence. 12. History of tetrahydrocannabinol usage. 13. Attention deficit hyperactivity disorder. 14. Anxiety, depression, not otherwise specified. 15. Hepatitis panel negative. DISCHARGE DISPOSITION: The patient left the hospital AGAINST MEDICAL ADVICE. HISTORY OF PRESENT ILLNESS: This 41-year-old gentleman admitted with multiple complex medical issues as mentioned. Patient being monitored closely and, but however, the patient left the hospital AGAINST MEDICAL ADVICE. Prognosis extremely guarded. Please refer to my previous dictations for further information. MTDD
--- NOTE | 2017-04-15 11:12 | CONS ---
DATE OF CONSULTATION: 04/09/2017 REASON FOR CONSULT: Psoriasis HISTORY OF PRESENT ILLNESS: Patient is a 41-year-old male with past medical history of psoriasis that present today with pleuritic erythematous excoriated patches and plaques on his left medial thigh and left posterior shoulder. Patient states that he was diagnosed with psoriasis over a year ago by another psychologist industrial organizational. Patient states he is not using anything that the other psychologist industrial organizational prescribed and cannot recall how it worked. Patient is currently using over the counter Eucerin with minimal improvement. PAST MEDICAL HISTORY: Seizure disorder, epilepsy, ADHD, anxiety, depression. MEDICATION ON ADMISSION: Multivitamins. ALLERGIES: No known drug allergies. No history of asthma, hives, eczema or rhinitis. SOCIAL HISTORY: Admits to 12 to 20 beers per day, 1/2 pack of cigarettes daily and daily marijuana use. REVIEW OF SYSTEMS: CONSTITUTIONAL: No weight loss, fever, chills, weakness or fatigue. HEENT: Eyes, no vision loss, blurry vision, double vision or yellow sclera. EARS, NOSE: No hearing loss, sneezing, congestion, runny nose or sore throat. SKIN: See HPI. CARDIOVASCULAR: No chest pain, chest pressure or chest discomfort. RESPIRATIONS: No shortness of breath, cough or sputum. GI: NO anorexia, nausea or vomiting. Admits to abdominal pain. : Denies burning on urination. NEUROLOGICAL: No headaches, dizziness, syncope, paralysis, ataxia, numbness or tingling of the extremities. MUSCULOSKELETAL: No muscle, back pain, joint pain or stiff neck. HEMOLOGICAL: No anemia, blood or bruising. PSYCHIATRIC: History of anxiety and depression. PHYSICAL EXAMINATION: VITAL SIGNS: Review of vital signs show his temperature is 99.4 degrees Fahrenheit, pulse is 90 beats per minute, respirations are 20 breaths per minute and blood pressure is 132/78. GENERAL: The patient is currently in no apparent distress. He is alert and oriented x3. He is well-nourished, well developed, cooperative, not anxious or agitated. NEUROLOGICAL: Cranial nerves 2 through 12 are grossly intact. HEAD AND NECK: Head is normocephalic and atraumatic. Neck is supple, trachea is midline. No JVD. LUNGS: Respirations are unlabored. EXTREMITIES: No focal neurological deficits noted. SKIN: Pleuritic erythematous excoriated patches and plaques on his left medial thigh and left posterior shoulder. LABS: See chart. IMPRESSION AND RECOMMENDATION: Psoriasis, betamethasone ointment b.i.d. to affect areas on thigh and posterior shoulder. Will have patient follow up in the office for long-term management of psoriasis. Thank you for this consult.
== END 2017-04-10 05:20 | disposition left against medical advice (07) | DRG 439 ==
LOC: EC 19:23 → 4MS4W 04-08 02:20
PROVIDERS: ADMIT Hospitalist; ATTEND Hospitalist
DX: K85.20 Alcohol induced acute pancreatitis without necrosis or infection (principal); D68.4 Acquired coagulation factor deficiency; K76.6 Portal hypertension; E44.0 Moderate protein-calorie malnutrition; D69.59 Other secondary thrombocytopenia; E83.51 Hypocalcemia; L03.90 Cellulitis, unspecified; D64.9 Anemia, unspecified; D72.819 Decreased white blood cell count, unspecified; F10.229 Alcohol dependence with intoxication, unspecified; F17.200 Nicotine dependence, unspecified, uncomplicated; F32.9 Major depressive disorder, single episode, unspecified; F41.9 Anxiety disorder, unspecified; J44.9 Chronic obstructive pulmonary disease, unspecified; K42.9 Umbilical hernia without obstruction or gangrene; K52.9 Noninfective gastroenteritis and colitis, unspecified; K70.11 Alcoholic hepatitis with ascites; K70.31 Alcoholic cirrhosis of liver with ascites; K72.90 Hepatic failure, unspecified without coma; K80.20 Calculus of gallbladder without cholecystitis without obstruction; L40.9 Psoriasis, unspecified; Y90.7 Blood alcohol level of 200-239 mg/100 ml; Z80.8 Family history of malignant neoplasm of other organs or systems; Z81.8 Family history of other mental and behavioral disorders; Z82.49 Family history of ischemic heart disease and other diseases of the circulatory system; Z87.01 Personal history of pneumonia (recurrent)
CPT/HCPCS: 36415; 74177; 76705; 80048; 80053; 80320; 81003; 82140; 82150; 83690; 85025; 85610; 96374; 99285

== ENCOUNTER 2017-05-02 14:25 | Emergency (ER) | payer OTHER ==
[2017-05-02] MEDS ORDERED: IPRATROPIUM 0.5 MG/2.5 ML NEBU INHALATION STA (14:49)
[2017-05-02] MEDS ORDERED: IBUPROFEN 600 MG TAB PO STA (14:49)
[2017-05-02] MEDS ORDERED: ALBUTEROL NEBULIZED 2.5 MG/3 ML INHALATION STA (14:49)
--- NOTE | 2017-05-02 15:38 | XR ---
EXAMINATION TYPE: XR chest 2V DATE OF EXAM: 05/02/2017 CLINICAL HISTORY: Shortness of breath TECHNIQUE: Frontal and lateral views of the chest are obtained. COMPARISON: 11/23/2016 FINDINGS: There is no focal air space opacity, pleural effusion, or pneumothorax seen. The cardiac silhouette size is within normal limits. The osseous structures are intact. IMPRESSION: No acute cardiopulmonary process.
--- NOTE | 2017-05-02 16:47 | ED ---
General Adult HPI - General Chief complaint: Recheck/Abnormal Lab/Rx Stated complaint: cough & congestion/diarrhea Time Seen by Provider: 05/02/17 14:36 Source: patient Mode of arrival: ambulatory Limitations: no limitations - History of Present Illness Initial comments: 41-year-old male presented with a one-day history of cough, subjective fever and chills, rhinorrhea and nasal congestion. Patient states his cough is productive of yellow-green sputum. He does have a history of pneumonia approximately 2 years ago. Patient is an alcoholic and drinks daily. Denies any history of vomiting or concern for aspiration. Patient is not currently on any medication. He is a daily smoker of marijuana. He also complaints of abdominal pain which is worse with his cough. Denies chest pain. He denies significant shortness of breath. - Related Data Previous Rx's Medication Instructions Recorded Azithromycin 250 mg PO DIRECTED #1 tab 05/02/17 LORazepam [Ativan] 1 mg PO HS #5 tab 05/02/17 predniSONE 50 mg PO DAILY #5 tablet 05/02/17 Allergies Allergy/AdvReac Type Severity Reaction Status Date / Time No Known Allergies Allergy Verified 05/02/17 15:09 Review of Systems ROS Statement: Those systems with pertinent positive or pertinent negative responses have been documented in the HPI. ROS Other: All systems not noted in ROS Statement are negative. Cardiovascular: Denies: chest pain Endocrine: Denies: fatigue Gastrointestinal: Denies: nausea, vomiting Past Medical History Past Medical History: Pneumonia, Seizure Disorder Additional Past Medical History / Comment(s): EPILEPSY CHILD-HAS'NT BEEN ON MEDS FOR SEIZURES SINCE AGE 11 OR 12. chronic etoh abuse, seizure related to alcohol withdrawal as well as delirium tremors, pneumonia /SEPSIS IN 2012 WAS VENTILATED, PSORIASES, PANCREATITIS. History of Any Multi-Drug Resistant Organisms: None Reported Past Surgical History: Orthopedic Surgery Additional Past Surgical History / Comment(s): RIGHT ANKLE- PLATES AND SCREWS, gastro tube, tracheostomy. Past Anesthesia/Blood Transfusion Reactions: No Reported Reaction Past Psychological History: ADD/ADHD, Anxiety, Depression Smoking Status: Current every day smoker Past Alcohol Use History: Daily Past Drug Use History: Marijuana - Past Family History Father Family Medical History: Myocardial Infarction ([place]) Additional Family Medical History / Comment(s): PULMOPNARY FIBROSIS AND HEART PROBLEMS. Father at the age of 65yrs from multiple medical problems. Mother Family Medical History: Cancer Additional Family Medical History / Comment(s): SKIN CANCER, DEPRESSION. AGORAPHOBIA. Mother is 63 yrs old. General Exam Limitations: no limitations Course Vital Signs 05/02/17 05/02/17 05/02/17 14:29 15:00 15:13 Temperature 98.1 F Pulse Rate 88 84 88 Respiratory 20 Rate Blood Pressure 148/84 O2 Sat by Pulse 98 Oximetry Medical Decision Making - Medical Decision Making 41 yo Male presented with a one-day history of cough. Patient is afebrile and well-appearing on examination. Lungs are clear to auscultation and there is bronchospastic cough. Cough is productive of yellow-green sputum. There is a small area congestion. Patient is an alcoholic. He denies any history of aspiration, denies nausea vomiting. Chest x-ray was negative for focal pneumonia. After albuterol and Atrovent patient is feeling much better. Cough is improved. Patient will be given a prescription for azithromycin and prednisone for acute bronchitis. Disposition Clinical Impression: Alcohol dependence, Bronchitis, acute Disposition: HOME SELF-CARE Condition: Good Prescriptions: Azithromycin 250 mg PO DIRECTED #1 tab LORazepam [Ativan] 1 mg PO HS #5 tab predniSONE 50 mg PO DAILY #5 tablet Referrals: None,Stated [Primary Care Provider] - 1-2 days
--- NOTE | 2017-05-02 16:57 | ED ---
Disposition Clinical Impression: Alcohol dependence, Bronchitis, acute Disposition: HOME SELF-CARE Condition: Good Instructions: Acute Bronchitis (ED) Prescriptions: Azithromycin 250 mg PO DIRECTED #1 tab LORazepam [Ativan] 1 mg PO HS #5 tab predniSONE 50 mg PO DAILY #5 tablet Referrals: None,Stated [Primary Care Provider] - 1-2 days
[2017-05-02 17:09] VITALS: BP 125/69; PULSE 107; RESP 18; TEMP 98.2
== END 2017-05-02 17:00 | disposition home or self-care (01) ==
LOC: EC 14:25
DX: J20.9 Acute bronchitis, unspecified (principal); F10.20 Alcohol dependence, uncomplicated; F17.200 Nicotine dependence, unspecified, uncomplicated
CPT/HCPCS: 71020; 94640; 99283

== ENCOUNTER 2017-05-31 06:49 | Inpatient (IN) | payer OTHER ==
--- NOTE | 2017-05-31 07:34 | ED ---
General Adult HPI - General Chief complaint: Abdominal Pain Stated complaint: Abdominal Pain Time Seen by Provider: 05/31/17 07:00 Source: patient, RN notes reviewed Mode of arrival: ambulatory Limitations: no limitations - History of Present Illness Initial comments: This is a 41-year-old male who presents himself to the emergency department stating that he is alcoholic and has continued to drink throughout the evening. Patient states he comes in today because his abdomen is so distended is making it difficult for him to breathe and is having quite a bit of back pain at this time. Patient denies any nausea or vomiting. Patient denies any diarrhea. Patient denies any fever chills. Patient denies any cough. Patient denies any recent injury or trauma. Patient states he has been drinking for many years and again he drank as late as last evening. - Related Data Home Medications Medication Instructions Recorded Confirmed Naproxen Sodium [Aleve] 440 mg PO DAILY 05/31/17 05/31/17 Allergies Allergy/AdvReac Type Severity Reaction Status Date / Time No Known Allergies Allergy Verified 05/31/17 06:58 Review of Systems ROS Statement: Those systems with pertinent positive or pertinent negative responses have been documented in the HPI. ROS Other: All systems not noted in ROS Statement are negative. Past Medical History Past Medical History: Pneumonia, Seizure Disorder Additional Past Medical History / Comment(s): EPILEPSY CHILD-HAS'NT BEEN ON MEDS FOR SEIZURES SINCE AGE 11 OR 12. chronic etoh abuse, seizure related to alcohol withdrawal as well as delirium tremors, pneumonia /SEPSIS IN 2012 WAS VENTILATED, PSORIASES, PANCREATITIS. History of Any Multi-Drug Resistant Organisms: None Reported Past Surgical History: Orthopedic Surgery Additional Past Surgical History / Comment(s): RIGHT ANKLE- PLATES AND SCREWS, gastro tube, tracheostomy. Past Anesthesia/Blood Transfusion Reactions: No Reported Reaction Past Psychological History: ADD/ADHD, Anxiety, Depression Smoking Status: Current every day smoker Past Alcohol Use History: Abuse, Daily Past Drug Use History: Marijuana - Past Family History Father Family Medical History: Myocardial Infarction ([place]) Additional Family Medical History / Comment(s): PULMOPNARY FIBROSIS AND HEART PROBLEMS. Father at the age of 65yrs from multiple medical problems. Mother Family Medical History: Cancer Additional Family Medical History / Comment(s): SKIN CANCER, DEPRESSION. AGORAPHOBIA. Mother is 63 yrs old. General Exam - General Exam Comments Initial Comments: GENERAL: Patient is well-developed and well-nourished. Patient is nontoxic and well- hydrated and is in mild distress. ENT: Neck is soft and supple. No significant lymphadenopathy is noted. Oropharynx is clear. Moist mucous membranes. Neck has full range of motion without eliciting any pain. There is no thyroid enlargement and no masses were felt. EYES: The sclera were anicteric and conjunctiva were pink and moist. Extraocular movements were intact and pupils were equal round and reactive to light. Eyelids were unremarkable. PULMONARY: Unlabored respirations. Good breath sounds bilaterally. No audible rales rhonchi or wheezing was noted. CARDIOVASCULAR: There is a regular rate and rhythm without any murmurs gallops or rubs. ABDOMEN: Patient's abdomen is distended typical of ascites. It is nontender to palpation. Patient has no back pain on palpation. SKIN: Skin is clear with no lesions or rashes and otherwise unremarkable. NEUROLOGIC: Patient is alert and oriented x3. Cranial nerves II through XII are grossly intact. Motor and sensory are also intact. Normal speech, volume and content. Symmetrical smile. MUSCULOSKELETAL: Normal extremities with adequate strength and full range of motion. No lower extremity swelling or edema. No calf tenderness. LYMPHATICS: No significant lymphadenopathy is noted PSYCHIATRIC: Normal psychiatric evaluation. Limitations: no limitations Course Vital Signs 05/31/17 05/31/17 06:52 07:58 Temperature 97.1 F L Pulse Rate 100 89 Respiratory 18 16 Rate Blood Pressure 143/98 133/98 O2 Sat by Pulse 100 98 Oximetry Medical Decision Making - Medical Decision Making Patient's alcohol contacted to 16. Patient has severe ascites which is impeding his breathing and hurting his back. I spoke with the hospitalist agreed to admit admitted the patient wrote admitting orders. I consult to GI - Lab Data Result diagrams: 05/31/17 07:28 05/31/17 07:28 Lab Results 05/31/17 05/31/17 05/31/17 Range/Units 07:28 07:28 07:28 WBC 3.6 L (3.8-10.6) k/uL RBC 3.81 L (4.30-5.90) m/uL Hgb 12.8 L (13.0-17.5) gm/dL Hct 40.9 (39.0-53.0) % MCV 107.6 H D (80.0-100.0) fL MCH 33.6 (25.0-35.0) pg MCHC 31.2 (31.0-37.0) g/dL RDW 16.2 H (11.5-15.5) % Plt Count 52 L D (150-450) k/uL Sodium 139 (137-145) mmol/L Potassium 3.7 (3.5-5.1) mmol/L Chloride 109 H (98-107) mmol/L Carbon Dioxide 21 L (22-30) mmol/L Anion Gap 9 mmol/L BUN 7 L (9-20) mg/dL Creatinine 0.46 L (0.66-1.25) mg/dL Est GFR (MDRD) Af Amer >60 (>60 ml/min/1.73 sqM) Est GFR (MDRD) Non-Af >60 (>60 ml/min/1.73 sqM) Glucose 87 (74-99) mg/dL Calcium 7.6 L (8.4-10.2) mg/dL Total Bilirubin 2.7 H (0.2-1.3) mg/dL AST 107 H (17-59) U/L ALT 38 (21-72) U/L Alkaline Phosphatase 280 H (38-126) U/L Total Protein 7.5 (6.3-8.2) g/dL Albumin 2.6 L (3.5-5.0) g/dL Amylase 79 (30-110) U/L Lipase 395 H (23-300) U/L Urine Color Yellow Urine Appearance Clear (Clear) Urine pH 6.5 (5.0-8.0) Ur Specific [place] 1.004 (1.001-1.035) Urine Protein Negative (Negative) Urine Glucose (UA) Negative (Negative) Urine Ketones Negative (Negative) Urine Blood Negative (Negative) Urine Nitrite Negative (Negative) Urine Bilirubin Negative (Negative) Urine Urobilinogen 2.0 (<2.0) mg/dL Ur Leukocyte Esterase Negative (Negative) Serum Alcohol mg/dL 05/31/17 Range/Units 07:28 WBC (3.8-10.6) k/uL RBC (4.30-5.90) m/uL Hgb (13.0-17.5) gm/dL Hct (39.0-53.0) % MCV (80.0-100.0) fL MCH (25.0-35.0) pg MCHC (31.0-37.0) g/dL RDW (11.5-15.5) % Plt Count (150-450) k/uL Sodium (137-145) mmol/L Potassium (3.5-5.1) mmol/L Chloride (98-107) mmol/L Carbon Dioxide (22-30) mmol/L Anion Gap mmol/L BUN (9-20) mg/dL Creatinine (0.66-1.25) mg/dL Est GFR (MDRD) Af Amer (>60 ml/min/1.73 sqM) Est GFR (MDRD) Non-Af (>60 ml/min/1.73 sqM) Glucose (74-99) mg/dL Calcium (8.4-10.2) mg/dL Total Bilirubin (0.2-1.3) mg/dL AST (17-59) U/L ALT (21-72) U/L Alkaline Phosphatase (38-126) U/L Total Protein (6.3-8.2) g/dL Albumin (3.5-5.0) g/dL Amylase (30-110) U/L Lipase (23-300) U/L Urine Color Urine Appearance (Clear) Urine pH (5.0-8.0) Ur Specific [place] (1.001-1.035) Urine Protein (Negative) Urine Glucose (UA) (Negative) Urine Ketones (Negative) Urine Blood (Negative) Urine Nitrite (Negative) Urine Bilirubin (Negative) Urine Urobilinogen (<2.0) mg/dL Ur Leukocyte Esterase (Negative) Serum Alcohol 216 mg/dL Disposition Clinical Impression: Alcohol intoxication, Ascites Disposition: ADMITTED IP TO THIS [facility] Referrals: None,Stated [Primary Care Provider] - 1-2 days Time of Disposition: 08:28
--- NOTE | 2017-05-31 07:53 | XR ---
EXAMINATION TYPE: XR KUB DATE OF EXAM: 05/31/2017 7:44 AM CLINICAL HISTORY: Abdominal pain and bloating this morning TECHNIQUE: 2 upright KUB images of the abdomen are obtained. COMPARISON: CT abdomen and pelvis April 07, 2017. FINDINGS: Scattered gas is seen in non-distended small bowel loops. Gas and fecal material is seen in non-distended colon. Bulging of flanks is consistent with underlying ascites related to known cirrho sis. There is left basilar linear atelectasis. No pneumoperitoneum or suspicious calcification is see n. Visualized osseous structures are intact. IMPRESSION: Overall nonobstructive bowel gas pattern. Ascites redemonstrated.
[2017-05-31 07:57] LABS: Anisocytosis Slight; Basophils # (A) 0.1 k/uL (0-0.2); Basophils % (A) 3 %; CH 34.7; CHCM 32.5; Eosinophils # (A) 0.3 k/uL (0-0.7); Eosinophils % (A) 8 %; HCT 40.9 % (39.0-53.0); HDW 2.45; HGB 12.8 gm/dL (13.0-17.5); Luc # (Auto) 0.14; Luc % (Auto) 4; Lymphocytes # (A) 0.5 k/uL (1.0-4.8); Lymphocytes % (A) 15 %; MCH 33.6 pg (25.0-35.0); MCHC 31.2 g/dL (31.0-37.0); Macrocytosis Marked; Mean Platelet Volume 10.2; Monocytes # (A) 0.5 k/uL (0-1.0); Monocytes % (A) 13 %; Neutrophils # (A) 2.1 k/uL (1.3-7.7); Neutrophils % (A) 58 %; RBC 3.81 m/uL (4.30-5.90); RDW 16.2 % (11.5-15.5); WBC 3.6 k/uL (3.8-10.6); WBC (Perox) 3.81
[2017-05-31 08:00] LABS: Appearance,Urine Clear (Clear); Bilirubin,Urine Negative (Negative); Glucose,Urine (UA) Negative (Negative); Ketones,Urine Negative (Negative); Leukocyte Esterase,Urine Negative (Negative); Nitrite,Urine Negative (Negative); PH, Urine 6.5 (5.0-8.0); Protein,Urine Negative (Negative); Specific Gravity,Urine 1.004 (1.001-1.035); UA Billing (MACRO vs. MICRO) CHEM
[2017-05-31 08:10] LABS: ALT 38 U/L (21-72); AST 107 U/L (17-59); Alkaline Phosphatase 280 U/L (38-126); Amylase 79 U/L (30-110); Anion Gap 9 mmol/L; Blood Urea Nitrogen 7 mg/dL (9-20); Calcium 7.6 mg/dL (8.4-10.2); Carbon Dioxide 21 mmol/L (22-30); Chloride 109 mmol/L (98-107); Glucose 87 mg/dL (74-99); Non-African American GFR(MDRD) >60 (>60 ml/min/1.73 sqM); Potassium 3.7 mmol/L (3.5-5.1); Sodium 139 mmol/L (137-145); Total Bilirubin 2.7 mg/dL (0.2-1.3); Total Protein 7.5 g/dL (6.3-8.2)
[2017-05-31 08:18] LABS: MCV 107.6 fL (80.0-100.0)
[2017-05-31 08:30] LABS: Manual Review Performed
[2017-05-31] MEDS ORDERED: LORazepam 2 MG/ML SYRINGE IV PRN ×3 (08:47)
[2017-05-31] MEDS ORDERED: THIAMINE 100 MG/ML 2 ML VIAL IM STA (08:47)
[2017-05-31 09:53] VITALS: BMI 31.0
[2017-05-31] MEDS: HYDROcodone/APAP 5-325MG 1 EACH TAB PO PRN ×2 (11:50→20:29)
[2017-05-31] MEDS: SPIRONOLACTONE 25 MG TAB PO SCH ×2 (11:51→20:22)
[2017-05-31] MEDS: FUROSEMIDE 10 MG/ML 4 ML VIAL IV SCH ×2 (11:51→20:23)
--- NOTE | 2017-05-31 11:52 | P.HPIM ---
History of Present Illness H&P Date: 05/31/17 Chief Complaint: Abdominal pain His is a 41-year-old gentleman with history of significant alcohol use about 8- 10 drinks her day was been previously admitted with alcohol withdrawal pancreatitis and was intubated in the past due to severe withdrawals and pneumonia comes in the hospital with abdominal distention for the last 2 months and lower back pain Patient was noted to have elevated liver enzymes States that his last drink was 6 hours ago his blood alcohol is greater than 200 States that the he does not take any medications at this time Denies having any headaches blurry vision chest pain difficulty breathing states that his main complaint is back pain and abdominal pain States that she has noticed edema in his lower extremities or the same period of time At this time he states that he would like to quit alcohol Denies having any suicidal or homicidal ideation Review of Systems All systems: negative (Noted in HPI) Past Medical History Past Medical History: Pneumonia, Seizure Disorder Additional Past Medical History / Comment(s): EPILEPSY CHILD-HAS'NT BEEN ON MEDS FOR SEIZURES SINCE AGE 11 OR 12. chronic etoh abuse, seizure related to alcohol withdrawal as well as delirium tremors, pneumonia /SEPSIS IN 2013 WAS VENTILATED, PSORIASES, PANCREATITIS. History of Any Multi-Drug Resistant Organisms: None Reported Past Surgical History: Orthopedic Surgery Additional Past Surgical History / Comment(s): RIGHT ANKLE- PLATES AND SCREWS, gastro tube, tracheostomy. Past Anesthesia/Blood Transfusion Reactions: No Reported Reaction Past Psychological History: ADD/ADHD, Anxiety, Depression Additional Psychological History / Comment(s): Pt resides with his spouse. He is independent. Smoking Status: Current every day smoker Past Alcohol Use History: Abuse, Daily, Heavy Additional Past Alcohol Use History / Comment(s): STARTED SMOKING AGE 14 1/2 [employer]. Pt now down to drinking 6 beers in a day. Last drink 0500 05/31/17 before feeling ill. Past Drug Use History: Marijuana Additional Drug Use History / Comment(s): Pt states he will smoke marijuana on occasion but not daily. - Past Family History Father Family Medical History: Myocardial Infarction ([place]) Additional Family Medical History / Comment(s): PULMOPNARY FIBROSIS AND HEART PROBLEMS. Father at the age of 65yrs from multiple medical problems. Mother Family Medical History: Cancer Additional Family Medical History / Comment(s): SKIN CANCER, DEPRESSION. AGORAPHOBIA. Mother is 63 yrs old. Medications and Allergies Home Medications Medication Instructions Recorded Confirmed Type Naproxen Sodium [Aleve] 440 mg PO DAILY 05/31/17 05/31/17 History Allergies Allergy/AdvReac Type Severity Reaction Status Date / Time No Known Allergies Allergy Verified 05/31/17 09:03 Physical Exam Vitals: Vital Signs Temp Pulse Pulse Resp BP BP Pulse Ox 05/31/17 09:00 97.8 F 94 18 129/81 96 05/31/17 08:53 101 H 18 120/85 99 05/31/17 07:58 89 16 133/98 98 05/31/17 06:52 97.1 F L 100 18 143/98 100 Intake and Output 05/30/17 05/31/17 05/31/17 22:59 06:59 14:59 Other: Weight 84.686 kg 84.686 kg Patient Weight 06/01/17 06:59 Weight 84.686 kg Physical exam Gen. appearance oriented 3 in no distress Neck is supple no JVD Lungs good air entry clear to auscultation no rhonchi or wheezing Heart S1-S2 heard regular rate and rhythm no murmurs appreciated A umbilical hernia is appreciated Lower extremity is 2+ pitting edema noted Multiple areas of petechiae Neurologically cranial nerves II-12 grossly intact no focal motor or sensory deficits noted Skin no abnormalities appreciated Results CBC & Chem 7: 05/31/17 07:28 05/31/17 07:28 Labs: Abnormal Lab Results - Last 24 Hours (Table) 05/31/17 05/31/17 Range/Units 07:28 07:28 WBC 3.6 L (3.8-10.6) k/uL RBC 3.81 L (4.30-5.90) m/uL Hgb 12.8 L (13.0-17.5) gm/dL MCV 107.6 H D (80.0-100.0) fL RDW 16.2 H (11.5-15.5) % Plt Count 52 L D (150-450) k/uL Lymphocytes # 0.5 L (1.0-4.8) k/uL Chloride 109 H (98-107) mmol/L Carbon Dioxide 21 L (22-30) mmol/L BUN 7 L (9-20) mg/dL Creatinine 0.46 L (0.66-1.25) mg/dL Calcium 7.6 L (8.4-10.2) mg/dL Total Bilirubin 2.7 H (0.2-1.3) mg/dL AST 107 H (17-59) U/L Alkaline Phosphatase 280 H (38-126) U/L Albumin 2.6 L (3.5-5.0) g/dL Lipase 395 H (23-300) U/L Thrombosis Risk Factor Assmnt - Choose All That Apply Each Factor Represents 1 point: Age 41-60 years Thrombosis Risk Factor Assessment Total Risk Factor Score: 1 Thrombosis Risk Factor Assessment Level: Low Risk Assessment and Plan Plan: #1 acute decompensated liver cirrhosis #2 thrombocytopenia #3 macrocytosis with mild anemia #4 umbilical hernia #5 acute alcohol intoxication #6 plan Patient will be started on Librium 10 mg 4 times a day Lasix 40 mg IV twice a day Spironolactone 50 mg by mouth twice a day Patient does not need a paracentesis at this time We'll start the patient on thiamine and cyanocobalamin
[2017-05-31] MEDS: CYANOCOBALAMIN 500 MCG TAB PO SCH (12:38)
[2017-05-31] MEDS: PANTOPRAZOLE 40 MG TABLET PO SCH (16:32)
[2017-05-31] MEDS: THIAMINE 100 MG TAB PO SCH (16:32)
[2017-06-01] MEDS: HYDROcodone/APAP 5-325MG 1 EACH TAB PO PRN ×3 (02:28→13:27)
[2017-06-01 07:17] VITALS: PULSE 89; RESP 16; TEMP 97.9
[2017-06-01 08:17] LABS: ALT 36 U/L (21-72); AST 102 U/L (17-59); Alkaline Phosphatase 251 U/L (38-126); Anion Gap 8 mmol/L; Blood Urea Nitrogen 9 mg/dL (9-20); Calcium 7.6 mg/dL (8.4-10.2); Carbon Dioxide 21 mmol/L (22-30); Chloride 108 mmol/L (98-107); Glucose 71 mg/dL (74-99); Non-African American GFR(MDRD) >60 (>60 ml/min/1.73 sqM); Sodium 137 mmol/L (137-145); Total Bilirubin 3.4 mg/dL (0.2-1.3); Total Protein 7.5 g/dL (6.3-8.2)
[2017-06-01] MEDS: SPIRONOLACTONE 25 MG TAB PO SCH ×2 (08:20→20:53)
[2017-06-01] MEDS: PANTOPRAZOLE 40 MG TABLET PO SCH ×2 (08:20→18:00)
[2017-06-01] MEDS: FUROSEMIDE 10 MG/ML 4 ML VIAL IV SCH ×2 (08:21→22:47)
[2017-06-01] MEDS: CYANOCOBALAMIN 500 MCG TAB PO SCH (12:37)
[2017-06-01] MEDS: THIAMINE 100 MG TAB PO SCH ×2 (12:38→18:00)
--- NOTE | 2017-06-01 14:43 | P.DS ---
Providers Date of admission: 05/31/17 08:28 Attending physician: Baltazar Jean MD Primary care physician: Stated None Hospital Course: His is a 41-year-old gentleman with history of significant alcohol use about 8- 10 drinks her day was been previously admitted with alcohol withdrawal pancreatitis and was intubated in the past due to severe withdrawals and pneumonia comes in the hospital with abdominal distention for the last 2 months and lower back pain Patient was noted to have elevated liver enzymes States that his last drink was 6 hours ago his blood alcohol is greater than 200 States that the he does not take any medications at this time Denies having any headaches blurry vision chest pain difficulty breathing states that his main complaint is back pain and abdominal pain States that she has noticed edema in his lower extremities or the same period of time At this time he states that he would like to quit alcohol Denies having any suicidal or homicidal ideation 06/01/17 doing better has not been requiring significant amounts of ativan ciwa <10 Physical exam Gen. appearance oriented 3 in no distress Neck is supple no JVD Lungs good air entry clear to auscultation no rhonchi or wheezing Heart S1-S2 heard regular rate and rhythm no murmurs appreciated A umbilical hernia is appreciated Lower extremity is 2+ pitting edema noted Multiple areas of petechiae Neurologically cranial nerves II-12 grossly intact no focal motor or sensory deficits noted Skin no abnormalities appreciated Plan: #1 acute decompensated liver cirrhosis #2 thrombocytopenia #3 macrocytosis with mild anemia #4 umbilical hernia #5 acute alcohol intoxication Psoriasis high potency steroid will be given plan continue taking diuretics with lactone and Lasix Discharged home to do a taper of Librium alcohol cessation is discussed Plan - Discharge Summary New Discharge Prescriptions: New chlordiazePOXIDE HCl [Librium] 10 mg PO DIRECTED #10 cap HYDROcodone/APAP 5-325MG [[place] 5-325] 1 each PO Q6HR PRN #15 tab PRN Reason: Pain Spironolactone [Aldactone] 50 mg PO BID #60 tab Furosemide [Lasix] 40 mg PO BID #60 tablet Betamethasone Valerate [Luxiq 0.01%] 1 applic TOPICAL BID #90 gm Discontinued Naproxen Sodium [Aleve] 440 mg PO DAILY Discharge Medication List Betamethasone Valerate [Luxiq 0.01%] 1 applic TOPICAL BID #90 gm 08/01/17 [Rx] Furosemide [Lasix] 40 mg PO BID #60 tablet 06/01/17 [Rx] HYDROcodone/APAP 5-325MG [[place] 5-325] 1 each PO Q6HR PRN #15 tab 06/01/17 [Rx] Spironolactone [Aldactone] 50 mg PO BID #60 tab 06/01/17 [Rx] chlordiazePOXIDE HCl [Librium] 10 mg PO DIRECTED #10 cap 06/01/17 [Rx] Follow up Appointment(s)/Referral(s): Pramod Aburto MD [REFERRING] - 06/07/17 11:10 am Patient Instructions/Handouts: Abuse of Alcohol (DC), Ascites (DC) Activity/Diet/Wound Care/Special Instructions: Cardiac diet. NO smoking, NO alcohol. Cessation information provided. Discharge/Stand Alone Forms: Work/School Release, Work/Release Restrictions Form Discharge Disposition: HOME SELF-CARE
[2017-06-01 15:15] VITALS: BP 123/76
== END 2017-06-01 21:00 | disposition home or self-care (01) | DRG 434 ==
LOC: EC 06:49 → 4MS4W 08:28
PROVIDERS: ADMIT Internal Medicine; ATTEND Internal Medicine
DX: K70.31 Alcoholic cirrhosis of liver with ascites (principal); D69.6 Thrombocytopenia, unspecified; D64.9 Anemia, unspecified; F10.229 Alcohol dependence with intoxication, unspecified; F17.200 Nicotine dependence, unspecified, uncomplicated; F41.9 Anxiety disorder, unspecified; K42.9 Umbilical hernia without obstruction or gangrene; L40.9 Psoriasis, unspecified; Z80.8 Family history of malignant neoplasm of other organs or systems; Z81.8 Family history of other mental and behavioral disorders; Z82.49 Family history of ischemic heart disease and other diseases of the circulatory system; Z79.899 Other long term (current) drug therapy
CPT/HCPCS: 36415; 74000; 80053; 80320; 81003; 82150; 83605; 83690; 85025; 96372; 99285

== ENCOUNTER 2017-11-08 14:36 | Emergency (ER) | payer SELFPAY ==
[2017-11-08] MEDS ORDERED: ONDANSETRON 4 MG/2 ML VIAL IVP STA (16:47)
[2017-11-08] MEDS ORDERED: SODIUM CHLORIDE 0.9% 1,000 ML with MVI, ADULT NO.4 WITH VIT K 10 ML, THIAMINE 100 MG, F... IV ONE ×4 (16:53)
--- NOTE | 2017-11-08 16:53 | ED ---
General Adult HPI - General Chief complaint: Nausea/Vomiting/Diarrhea Stated complaint: Vomiting Time Seen by Provider: 11/08/17 14:40 Source: patient, RN notes reviewed Mode of arrival: ambulatory Limitations: no limitations - History of Present Illness Initial comments: This is a 42-year-old male who presents emergency Department stating he is an alcoholic. Patient states he stopped drinking for approximately 6 months but in the last 30 days she has picked back up again. Patient comes in today complaining of a cough and complaining that he has had some vomiting. Patient states his abdomen is also gotten distended which is In the past. Patient's been told he has ascites. Patient states he has had liver failure. Patient denies any recent fever patient denies any difficulty breathing shortness of breath patient denies any chest pain or palpitations. Patient states his last drink was at 10:00 this morning he states he had 1 beer - Related Data Home Medications Medication Instructions Recorded Confirmed Naproxen Sodium [Aleve] 220 mg PO BID PRN 11/08/17 11/08/17 Previous Rx's Medication Instructions Recorded Diazepam [Valium] 5 mg PO Q6H #10 tab 11/08/17 Allergies Allergy/AdvReac Type Severity Reaction Status Date / Time No Known Allergies Allergy Verified 11/08/17 16:37 Review of Systems ROS Statement: Those systems with pertinent positive or pertinent negative responses have been documented in the HPI. ROS Other: All systems not noted in ROS Statement are negative. Past Medical History Past Medical History: Pneumonia, Seizure Disorder Additional Past Medical History / Comment(s): EPILEPSY CHILD-HAS'NT BEEN ON MEDS FOR SEIZURES SINCE AGE 11 OR 12. chronic etoh abuse, seizure related to alcohol withdrawal as well as delirium tremors, pneumonia /SEPSIS IN 2012 WAS VENTILATED, PSORIASES, PANCREATITIS. History of Any Multi-Drug Resistant Organisms: None Reported Past Surgical History: Orthopedic Surgery Additional Past Surgical History / Comment(s): RIGHT ANKLE- PLATES AND SCREWS, gastro tube, tracheostomy. Past Anesthesia/Blood Transfusion Reactions: No Reported Reaction Past Psychological History: ADD/ADHD, Anxiety, Depression Smoking Status: Current every day smoker Past Alcohol Use History: Abuse, Daily, Heavy Past Drug Use History: Marijuana - Past Family History Father Family Medical History: Myocardial Infarction (OK) Additional Family Medical History / Comment(s): PULMOPNARY FIBROSIS AND HEART PROBLEMS. Father at the age of 65yrs from multiple medical problems. Mother Family Medical History: Cancer Additional Family Medical History / Comment(s): SKIN CANCER, DEPRESSION. AGORAPHOBIA. Mother is 63 yrs old. General Exam - General Exam Comments Initial Comments: GENERAL: Patient is well-developed and well-nourished. Patient is nontoxic and well- hydrated and is in no acute distress. ENT: Neck is soft and supple. No significant lymphadenopathy is noted. Oropharynx is clear. Moist mucous membranes. Neck has full range of motion without eliciting any pain. EYES: The sclera were anicteric and conjunctiva were pink and moist. Extraocular movements were intact and pupils were equal round and reactive to light. Eyelids were unremarkable. PULMONARY: Unlabored respirations. Good breath sounds bilaterally. No audible rales rhonchi or wheezing was noted. CARDIOVASCULAR: There is a regular rate and rhythm without any murmurs gallops or rubs. ABDOMEN: Soft and nontender with normal bowel sounds. Abdomen is distended typical of ascites. SKIN: Skin is clear with no lesions or rashes and otherwise unremarkable. NEUROLOGIC: Patient is alert and oriented x3. Cranial nerves II through XII are grossly intact. Motor and sensory are also intact. Normal speech, volume and content. Symmetrical smile. MUSCULOSKELETAL: Normal extremities with adequate strength and full range of motion. LYMPHATICS: No significant lymphadenopathy is noted PSYCHIATRIC: Normal psychiatric evaluation. Normal interpersonal interactions appears functionally intact in deals appropriately with others. No signs of depression. No signs of anxiety. Limitations: no limitations Course Vital Signs 11/08/17 14:51 Temperature 98.0 F Pulse Rate 118 H Respiratory 20 Rate Blood Pressure 136/95 O2 Sat by Pulse 100 Oximetry Medical Decision Making - Medical Decision Making EKG shows sinus tachycardia at 103 bpm TN interval 146 dresses 88 QT interval 354 QTC is 463. Patient's EKG shows no ST segment elevation or depression or T wave abnormalities are noted - Lab Data Result diagrams: 11/08/17 17:15 11/08/17 17:15 Lab Results 11/08/17 11/08/17 11/08/17 Range/Units 17:15 17:15 17:15 WBC 4.4 (3.8-10.6) k/uL RBC 3.56 L (4.30-5.90) m/uL Hgb 12.3 L (13.0-17.5) gm/dL Hct 37.8 L (39.0-53.0) % MCV 106.1 H (80.0-100.0) fL MCH 34.5 (25.0-35.0) pg MCHC 32.5 (31.0-37.0) g/dL RDW 17.1 H (11.5-15.5) % Plt Count 51 L (150-450) k/uL Neutrophils % 79 % Lymphocytes % 11 % Monocytes % 7 % Eosinophils % 1 % Basophils % 1 % Neutrophils # 3.5 (1.3-7.7) k/uL Lymphocytes # 0.5 L (1.0-4.8) k/uL Monocytes # 0.3 (0-1.0) k/uL Eosinophils # 0.0 (0-0.7) k/uL Basophils # 0.0 (0-0.2) k/uL Manual Slide Review Performed Polychromasia Present Poikilocytosis (manual Present Anisocytosis Slight Macrocytosis Moderate PT 14.1 H (9.0-12.0) sec INR 1.5 H (<1.2) APTT 28.9 (22.0-30.0) sec Sodium 134 L (137-145) mmol/L Potassium 3.9 (3.5-5.1) mmol/L Chloride 103 (98-107) mmol/L Carbon Dioxide 20 L (22-30) mmol/L Anion Gap 11 mmol/L BUN 9 (9-20) mg/dL Creatinine 0.53 L (0.66-1.25) mg/dL Est GFR (MDRD) Af Amer >60 (>60 ml/min/1.73 sqM) Est GFR (MDRD) Non-Af >60 (>60 ml/min/1.73 sqM) Glucose 84 (74-99) mg/dL Calcium 7.7 L (8.4-10.2) mg/dL Magnesium 1.6 (1.6-2.3) mg/dL Total Bilirubin 3.1 H (0.2-1.3) mg/dL AST 102 H (17-59) U/L ALT 43 (21-72) U/L Alkaline Phosphatase 205 H (38-126) U/L Total Protein 7.6 (6.3-8.2) g/dL Albumin 2.7 L (3.5-5.0) g/dL Amylase 61 (30-110) U/L Lipase 241 (23-300) U/L Serum Alcohol 74 mg/dL Disposition Clinical Impression: Alcohol abuse, URI (upper respiratory infection), Acute vomiting Disposition: HOME SELF-CARE Condition: Good Instructions: Acute Nausea and Vomiting (ED) Prescriptions: Diazepam [Valium] 5 mg PO Q6H #10 tab Referrals: None,Stated [Primary Care Provider] - 1-2 days Time of Disposition: 18:35
[2017-11-08 17:23] LABS: Anisocytosis Slight; Basophils % (A) 1 %; Eosinophils % (A) 1 %; HCT 37.8 % (39.0-53.0); HGB 12.3 gm/dL (13.0-17.5); Lymphocytes # (A) 0.5 k/uL (1.0-4.8); Lymphocytes % (A) 11 %; MCH 34.5 pg (25.0-35.0); MCHC 32.5 g/dL (31.0-37.0); MCV 106.1 fL (80.0-100.0); Macrocytosis Moderate; Mean Platelet Volume 8.9; Monocytes # (A) 0.3 k/uL (0-1.0); Monocytes % (A) 7 %; Neutrophils # (A) 3.5 k/uL (1.3-7.7); Neutrophils % (A) 79 %; RBC 3.56 m/uL (4.30-5.90); RDW 17.1 % (11.5-15.5); WBC 4.4 k/uL (3.8-10.6)
[2017-11-08 17:32] LABS: ALT 43 U/L (21-72); AST 102 U/L (17-59); Albumin 2.7 g/dL (3.5-5.0); Alcohol 74 mg/dL; Alkaline Phosphatase 205 U/L (38-126); Amylase 61 U/L (30-110); Anion Gap 11 mmol/L; Blood Urea Nitrogen 9 mg/dL (9-20); Calcium 7.7 mg/dL (8.4-10.2); Carbon Dioxide 20 mmol/L (22-30); Chloride 103 mmol/L (98-107); Glucose 84 mg/dL (74-99); Lipase 241 U/L (23-300); Magnesium 1.6 mg/dL (1.6-2.3); Potassium 3.9 mmol/L (3.5-5.1); Sodium 134 mmol/L (137-145); Total Bilirubin 3.1 mg/dL (0.2-1.3); Total Protein 7.6 g/dL (6.3-8.2)
[2017-11-08 17:35] LABS: INR 1.5 (<1.2); Partial Thromboplastin Time 28.9 sec (22.0-30.0); Prothrombin Time 14.1 sec (9.0-12.0)
[2017-11-08 17:46] LABS: Platelet Count 51 k/uL (150-450); Poikilocytosis (M) Present; Polychromasia Present
--- NOTE | 2017-11-08 17:53 | XR ---
EXAMINATION TYPE: XR chest 2V DATE OF EXAM: 11/08/2017 COMPARISON: 05/02/2017 HISTORY: Shortness of breath TECHNIQUE: Frontal and lateral views of the chest are obtained. FINDINGS: There are low lung volumes accentuating the pulmonary vasculature. This also creates scatt ered areas of subsegmental atelectasis bilaterally. Cardiac silhouette is within normal limits. No fo kushal consolidation, pleural effusion or pneumothorax. IMPRESSION: Scattered subsegmental atelectasis bilaterally with no focal consolidation.
[2017-11-08] MEDS ORDERED: ONDANSETRON 4 MG ODT STARTER PACK 2 TAB BTL PO STA (18:35)
[2017-11-08 19:21] VITALS: BP 157/85; PULSE 108; RESP 18; TEMP 98.7
== END 2017-11-08 19:19 | disposition home or self-care (01) ==
LOC: EC 14:36
DX: F10.10 Alcohol abuse, uncomplicated (principal); J06.9 Acute upper respiratory infection, unspecified; R11.10 Vomiting, unspecified; R14.0 Abdominal distension (gaseous); F17.200 Nicotine dependence, unspecified, uncomplicated; Z87.19 Personal history of other diseases of the digestive system; Z86.19 Personal history of other infectious and parasitic diseases; Y90.3 Blood alcohol level of 60-79 mg/100 ml
CPT/HCPCS: 99284; 96365; 96366; 96375; 36415; 93005; 80053; 82150; 83690; 83735; 85025; 85610; 85730; 80320; 71046; J3411; J2405; S0119

== ENCOUNTER → 2018-02-09 | Outpatient (CLI) | payer SELFPAY ==
[2018-02-09 15:13] LABS: Basophils % (A) 1 %; Eosinophils # (A) 0.2 k/uL (0-0.7); Eosinophils % (A) 7 %; HCT 31.3 % (39.0-53.0); HGB 10.5 gm/dL (13.0-17.5); Lymphocytes # (A) 0.3 k/uL (1.0-4.8); Lymphocytes % (A) 12 %; MCH 36.1 pg (25.0-35.0); MCHC 33.5 g/dL (31.0-37.0); MCV 107.8 fL (80.0-100.0); Macrocytosis Moderate; Mean Platelet Volume 9.3; Monocytes # (A) 0.3 k/uL (0-1.0); Monocytes % (A) 16 %; Neutrophils # (A) 1.3 k/uL (1.3-7.7); Neutrophils % (A) 61 %; RDW 14.5 % (11.5-15.5); WBC 2.1 k/uL (3.8-10.6)
[2018-02-09 15:27] LABS: ALT 26 U/L (21-72); AST 39 U/L (17-59); Albumin 2.9 g/dL (3.5-5.0); Alkaline Phosphatase 171 U/L (38-126); Anion Gap 12 mmol/L; Blood Urea Nitrogen 12 mg/dL (9-20); Calcium 9.1 mg/dL (8.4-10.2); Carbon Dioxide 25 mmol/L (22-30); Chloride 101 mmol/L (98-107); Glucose 95 mg/dL (74-99); Potassium 4.8 mmol/L (3.5-5.1); Sodium 138 mmol/L (137-145); Total Bilirubin 3.4 mg/dL (0.2-1.3); Total Protein 8.3 g/dL (6.3-8.2)
[2018-02-09 16:02] LABS: Polychromasia Present
[2018-02-09 16:03] LABS: Platelet Count 73 k/uL (150-450)
== END | disposition home or self-care (01) ==
LOC: LABWHC1 14:46
PROVIDERS: ATTEND Internal Medicine Gastroenterology
DX: K70.30 Alcoholic cirrhosis of liver without ascites (principal)
CPT/HCPCS: 36415; 80053; 85025

== ENCOUNTER → 2018-06-14 | Outpatient (CLI) | payer SELFPAY ==
[2018-06-14 13:46] LABS: Basophils % (A) 0 %; Eosinophils # (A) 0.2 k/uL (0-0.7); Eosinophils % (A) 5 %; HCT 38.6 % (39.0-53.0); HGB 12.8 gm/dL (13.0-17.5); Lymphocytes # (A) 0.4 k/uL (1.0-4.8); Lymphocytes % (A) 7 %; MCH 35.4 pg (25.0-35.0); MCHC 33.1 g/dL (31.0-37.0); MCV 106.8 fL (80.0-100.0); Macrocytosis Moderate; Mean Platelet Volume 8.9; Monocytes # (A) 0.5 k/uL (0-1.0); Monocytes % (A) 10 %; Neutrophils # (A) 3.5 k/uL (1.3-7.7); Neutrophils % (A) 75 %; RBC 3.62 m/uL (4.30-5.90); RDW 15.4 % (11.5-15.5); WBC 4.8 k/uL (3.8-10.6)
[2018-06-14 14:05] LABS: Platelet Count 63 k/uL (150-450)
[2018-06-14 14:10] LABS: ALT 98 U/L (21-72); AST 142 U/L (17-59); Albumin 3.1 g/dL (3.5-5.0); Alkaline Phosphatase 320 U/L (38-126); Anion Gap 10 mmol/L; Blood Urea Nitrogen 17 mg/dL (9-20); Calcium 8.2 mg/dL (8.4-10.2); Carbon Dioxide 20 mmol/L (22-30); Chloride 103 mmol/L (98-107); Glucose 127 mg/dL (74-99); Potassium 4.5 mmol/L (3.5-5.1); Sodium 133 mmol/L (137-145); Total Bilirubin 14.7 mg/dL (0.2-1.3)
[2018-06-14 14:15] LABS: Total Protein 7.7 g/dL (6.3-8.2)
== END | disposition home or self-care (01) ==
LOC: LABWHC1 12:30
PROVIDERS: ATTEND Internal Medicine Gastroenterology
DX: K70.30 Alcoholic cirrhosis of liver without ascites (principal)
CPT/HCPCS: 36415; 80053; 82105; 85025

== ENCOUNTER → 2018-06-23 | Outpatient (CLI) | payer SELFPAY ==
--- NOTE | 2018-06-23 10:37 | US ---
EXAMINATION TYPE: US abdomen complete DATE OF EXAM: 06/23/2018 COMPARISON: CT CLINICAL HISTORY: R17 Unspecified jaundice. Patient states known gallstones EXAM MEASUREMENTS: Liver Length: 13.0 cm Gallbladder Wall: 0.4 cm CBD: 0.6 cm Spleen: 14.8 cm Right Kidney: 10.4 x 5.3 x 5.9 cm Left Kidney: 11.3 x 5.1 x 5.5 cm Pancreas: not well visualized due to midline bowel gas Liver: nodular with coarse echotexture . Correlate for cirrhosis. Gallbladder: thickened wall, multiple stones with shadowing, difficult to prove mobility due to appe arance of contraction of the gallbladder. Evidence for sonographic Warner's sign: No CBD: upper limits of normal at 0.6 cm Spleen: enlarged Right Kidney: No hydronephrosis or masses seen Left Kidney: No hydronephrosis or masses seen Upper IVC: wnl Abd Aorta: wnl Free fluid noted IMPRESSION: 1. Clinical correlation recommended for cirrhosis. 2. Ascites. 3. Echogenic material within the contracted gallbladder. Stones and sludge considered. Correlate for acute cholecystitis.
== END | disposition home or self-care (01) ==
LOC: RADUSWWP 07:57
PROVIDERS: ATTEND Internal Medicine Gastroenterology
DX: R18.8 Other ascites (principal); R93.3 Abnormal findings on diagnostic imaging of other parts of digestive tract
CPT/HCPCS: 76700

== ENCOUNTER → 2018-08-05 | Outpatient (CLI) | payer SELFPAY ==
[2018-08-05 13:24] LABS: ALT 34 U/L (21-72); AST 64 U/L (17-59); Albumin 2.8 g/dL (3.5-5.0); Alkaline Phosphatase 220 U/L (38-126); Anion Gap 7 mmol/L; Blood Urea Nitrogen 14 mg/dL (9-20); Calcium 8.7 mg/dL (8.4-10.2); Carbon Dioxide 24 mmol/L (22-30); Chloride 108 mmol/L (98-107); Glucose 117 mg/dL (74-99); Potassium 4.8 mmol/L (3.5-5.1); Sodium 139 mmol/L (137-145); Total Bilirubin 2.7 mg/dL (0.2-1.3); Total Protein 7.4 g/dL (6.3-8.2)
[2018-08-05 14:07] LABS: Anisocytosis Slight; Basophils % (A) 1 %; Eosinophils # (A) 0.2 k/uL (0-0.7); Eosinophils % (A) 6 %; HCT 35.4 % (39.0-53.0); HGB 11.7 gm/dL (13.0-17.5); Lymphocytes # (A) 0.3 k/uL (1.0-4.8); Lymphocytes % (A) 7 %; MCH 36.4 pg (25.0-35.0); MCHC 32.9 g/dL (31.0-37.0); MCV 110.7 fL (80.0-100.0); Macrocytosis Marked; Mean Platelet Volume 11.5; Monocytes # (A) 0.3 k/uL (0-1.0); Monocytes % (A) 9 %; Neutrophils % (A) 75 %; RDW 16.9 % (11.5-15.5)
[2018-08-05 15:06] LABS: Platelet Count 57 k/uL (150-450)
== END | disposition home or self-care (01) ==
LOC: LABWHC1 11:31
PROVIDERS: ATTEND Internal Medicine Gastroenterology
DX: K70.30 Alcoholic cirrhosis of liver without ascites (principal)
CPT/HCPCS: 36415; 80053; 85025

== ENCOUNTER → 2020-07-03 | Outpatient (CLI) | payer MEDICARE ==
--- NOTE | 2020-07-03 12:38 | XR ---
EXAMINATION TYPE: XR lumbar spine 2 or 3V DATE OF EXAM: 07/03/2020 CLINICAL HISTORY: Lower back pain, chronic. No known injury. TECHNIQUE: Frontal and lateral images of the lumbar spine obtained. COMPARISON: CT abdomen pelvis 04/07/2017. FINDINGS: There are 5 lumbar type vertebral bodies identified. The lumbar spine shows satisfactory alignment without evidence of acute fracture or dislocation. Vertebral body heights and disk space he ights are within normal limits. There is multilevel mild to moderate degenerative endplate spurring, worst at L3 with superior endplate sclerosis. No evidence of spondylolisthesis. Sacroiliac joints a re symmetric and unremarkable. The overlying soft tissue appears unremarkable. IMPRESSION: 1. Degenerative disc disease with endplate spurring. 2. No acute fracture or dislocation.
== END | disposition home or self-care (01) ==
LOC: RADXRMAIN 10:35
PROVIDERS: ATTEND Family Medicine
DX: M51.36 Other intervertebral disc degeneration, lumbar region (principal)
CPT/HCPCS: 72100

== ENCOUNTER → 2020-09-16 | Outpatient (CLI) | payer MEDICARE ==
--- NOTE | 2020-09-17 08:16 | ECHOF ---
Referral Reason:R01.1 Cardiac Murmur MEASUREMENTS -------- HEIGHT: 165.1 cm WEIGHT: 90.7 kg BP: IVSd: 1.4 cm (0.6 - 1.1) LVIDd: 4.4 cm (3.9 - 5.3) LVPWd: 1.4 cm (0.6 - 1.1) IVSs: 1.5 cm LVIDs: 3.3 cm LVPWs: 1.7 cm LA Diam: 4.5 cm (2.7 - 3.8) LAESV Index (A-L): 31.31 ml/m Ao Diam: 3.3 cm (2.0 - 3.7) AV Cusp: 2.3 cm (1.5 - 2.6) MV EXCURSION: 19.436 mm (> 18.000) MV EF SLOPE: 91 mm/s (70 - 150) EPSS: 0.3 cm MV E Renzo: 0.63 m/s MV DecT: 211 ms MV A Renzo: 1.07 m/s MV E/A Ratio: 0.59 AV maxP.86 mmHg AV meanP.81 mmHg RAP: 5.00 mmHg RVSP: 18.15 mmHg FINDINGS -------- This was a technically good study. The left ventricular size is normal. There is moderate concentric left ventricular hypertrophy. The right ventricle is normal in size. The left atrium is mildly dilated. The right atrial size is normal. There is mild aortic stenosis present. Peak/mean gradient across the Aortic Valve is 15.86mmHg / 8. 81mmHg. The mitral valve leaflets are mildly thickened. Mild mitral annular calcification present. Mild m itral regurgitation is present. Mild tricuspid regurgitation present. Right ventricular systolic pressure is normal at < 35 mmHg. There is no pulmonic regurgitation present. The aortic root size is normal. There is no pericardial effusion. CONCLUSIONS -------- 1. The left ventricular size is normal. 2. There is moderate concentric left ventricular hypertrophy. 3. The right ventricle is normal in size. 4. The left atrium is mildly dilated. 5. The right atrial size is normal. 6. There is mild aortic stenosis present. 7. Peak/mean gradient across the Aortic Valve is 15.86mmHg / 8.81mmHg. 8. The mitral valve leaflets are mildly thickened. 9. Mild mitral annular calcification present. 10. Mild mitral regurgitation is present. 11. Mild tricuspid regurgitation present. 12. The aortic root size is normal. 13. can not r/o bicuspid aortic valve OPERATIONS SUPERINTENDENT: Gail Ramsey RDCS
== END | disposition home or self-care (01) ==
LOC: RADECHMAIN 14:29
PROVIDERS: ATTEND Nurse Practitioner Family
DX: I08.1 Rheumatic disorders of both mitral and tricuspid valves (principal)
CPT/HCPCS: 93306

== ENCOUNTER → 2020-11-07 | Outpatient (CLI) | payer MEDICARE ==
[2020-11-07 10:13] LABS: Basophils % (A) 1 %; Eosinophils # (A) 0.2 k/uL (0-0.7); Eosinophils % (A) 6 %; HCT 48.4 % (39.0-53.0); Lymphocytes # (A) 0.4 k/uL (1.0-4.8); Lymphocytes % (A) 9 %; MCH 35.4 pg (25.0-35.0); MCHC 33.1 g/dL (31.0-37.0); Macrocytosis Moderate; Mean Platelet Volume 10.2; Monocytes # (A) 0.3 k/uL (0-1.0); Monocytes % (A) 8 %; Neutrophils # (A) 2.8 k/uL (1.3-7.7); Neutrophils % (A) 74 %; RBC 4.52 m/uL (4.30-5.90); RDW 13.2 % (11.5-15.5); WBC 3.8 k/uL (3.8-10.6)
[2020-11-07 10:39] LABS: INR 1.2 (<1.2); Prothrombin Time 12.8 sec (9.0-12.0)
--- NOTE | 2020-11-07 10:43 | US ---
EXAMINATION TYPE: US liver DATE OF EXAM: 11/07/2020 COMPARISON: NONE CLINICAL HISTORY: K70.30 Alcoholic cirrhosis of liver without ascites. known cirrhosis, no symptoms EXAM MEASUREMENTS: Liver Length: 12.3 cm Gallbladder Wall: 0.2 cm CBD: 0.4 cm Right Kidney: 11.5 x 5.5 x 6.3 cm Pancreas: not seen due to bowel gas Liver: nodular contour and smaller in size Gallbladder: wnl Evidence for sonographic Warner's sign: no CBD: wnl Right Kidney: wnl IMPRESSION: 1. Some nodularity through the liver which can be compatible with patient's reported cirrhosis. 2. No significant ascites evident.
[2020-11-07 10:45] LABS: Platelet Count 43 k/uL (150-450)
[2020-11-07 10:46] LABS: Poikilocytosis (M) Present
[2020-11-07 11:02] LABS: ALT 40 U/L (4-49); AST 56 U/L (17-59); African American GFR (CKD) >90 (>60 ml/min/1.73 sqM); Albumin 3.6 g/dL (3.5-5.0); Alkaline Phosphatase 134 U/L (38-126); Anion Gap 3 mmol/L; Blood Urea Nitrogen 11 mg/dL (9-20); Calcium 9.5 mg/dL (8.4-10.2); Carbon Dioxide 29 mmol/L (22-30); Chloride 108 mmol/L (98-107); Glucose 98 mg/dL (74-99); Non-African American GFR(CKD) >90 (>60 ml/min/1.73 sqM); Potassium 4.1 mmol/L (3.5-5.1); Sodium 140 mmol/L (137-145); Total Bilirubin 2.1 mg/dL (0.2-1.3); Total Protein 7.2 g/dL (6.3-8.2)
[2020-11-07 19:37] LABS: Hepatitis A Antibody IgM Non-Reactive (Non-Reactive); Hepatitis B Core IgM Non-Reactive (Non-Reactive); Hepatitis B Surface Antigen Non-Reactive (Non-Reactive); Hepatitis C IgG Antibody Non-Reactive (Non-Reactive)
[2020-11-07 21:50] LABS: Alpha Fetoprotein, Tumor Mkr 6.7 ng/mL (0.0-7.9)
== END | disposition home or self-care (01) ==
LOC: RADUSWWP 09:11
PROVIDERS: ATTEND Internal Medicine Gastroenterology
DX: K76.89 Other specified diseases of liver (principal); K70.30 Alcoholic cirrhosis of liver without ascites
CPT/HCPCS: 76705; 80053; 80074; 82105; 85025; 85610

== ENCOUNTER → 2022-03-16 | Outpatient (CLI) | payer MEDICARE ==
--- NOTE | 2022-03-16 08:58 | US ---
EXAMINATION TYPE: US liver DATE OF EXAM: 03/16/2022 COMPARISON: Multiple Ultrasounds since 2016. Latest 11/07/20, CT 04/07/17 CLINICAL HISTORY: K70.30 ALCOHOLIC CIRRHOSIS. EXAM MEASUREMENTS: Liver Length: 13.8 cm Gallbladder Wall: 0.3 cm CBD: 0.3 cm Right Kidney: 11.7 x 6.0 x 6.0 cm Pancreas: Partially Obscured by bowel gas Liver: Lobulated, Small in size, course texture Gallbladder: Tortuous gallbladder, thickened wall with echogenic material and stones seen in neck. Evidence for sonographic Warner's sign: No CBD: wnl Right Kidney: No hydronephrosis or masses seen. Multiple echogenic foci without shadowing. Visualized pancreas remains heterogeneous without mass or ductal dilatation. Visualized liver remains markedly heterogeneously hyperechoic with lobulated peripheral contour. Evaluation for focal masses suboptimal due to the heterogeneity. No intrahepatic or extrahepatic biliary dilatation. Gallbladder seen with some dependent echoes consistent with small stones and/or gallbladder sludge. No surroundin g fluid or wall thickening. No right-sided hydronephrosis. Trace free fluid near the hepatic dome on current study marked redundancy of study IMPRESSION: Trace amount of perihepatic ascites currently not clearly seen on most recent ultrasound. Cirrhotic liver redemonstrated.
== END | disposition home or self-care (01) ==
LOC: RADUSWWP 07:55
PROVIDERS: ATTEND Internal Medicine Gastroenterology
DX: K70.30 Alcoholic cirrhosis of liver without ascites (principal)
CPT/HCPCS: 76705

== ENCOUNTER → 2022-11-05 | Outpatient (CLI) | payer MEDICARE ==
--- NOTE | 2022-11-05 10:19 | US ---
EXAMINATION TYPE: US liver DATE OF EXAM: 11/05/2022 COMPARISON: 03/16/2022 CLINICAL HISTORY: 47-year-old male K70.30 ALCOHOLIC CIRRHOSIS OF LIVER WITHOUT ASCITES. TECHNIQUE: Multiple sonographic images of the right upper quadrant are obtained. FINDINGS: EXAM MEASUREMENTS: Liver Length: 11.4 cm Gallbladder Wall: 0.6 cm CBD: 0.3 cm Right Kidney: 11.5 x 5.4 x 5.3 cm Pancreas: Most of the body and tail are secured by bowel gas shadowing. Only a small portion of the head and neck are seen. Liver: heterogeneous, irregular contour. No focal lesion is identified. Gallbladder: Small shadowing stones near the neck of the gallbladder. No abnormal gallbladder distent ion or surrounding fluid. There is mild gallbladder wall thickening. Evidence for sonographic Warner's sign: no CBD: wnl Right Kidney: somewhat limited views, appears wnl as seen Occupational Health Coordinator notes: Very mild ascites. IMPRESSION: 1. Cirrhotic liver morphology. No sonographic evidence for hepatoma. 2. The sorority mother indicates trace ascites fluid, not well demonstrated on the provided images. 3. Cholelithiasis. Gallbladder wall thickening could be secondary to underlying cirrhosis or chronic cholecystitis.
== END | disposition home or self-care (01) ==
LOC: RADUSWWP 07:32
PROVIDERS: ATTEND Internal Medicine Gastroenterology
DX: K70.30 Alcoholic cirrhosis of liver without ascites (principal); K80.20 Calculus of gallbladder without cholecystitis without obstruction; K82.8 Other specified diseases of gallbladder; R18.8 Other ascites
CPT/HCPCS: 76705

== ENCOUNTER 2023-12-08 17:09 | Emergency (ER) | payer MEDICARE ==
--- NOTE | 2023-12-08 17:58 | XR ---
EXAMINATION TYPE: XR chest 2V DATE OF EXAM: 12/08/2023 5:52 PM CLINICAL INDICATION:Male, 48 years old with history of difficulty breathing; [facility] COMPARISON: Chest radiographs from 11/08/2017 TECHNIQUE: XR chest 2V Frontal and lateral views of the chest. FINDINGS: Lungs/Pleura: There is no evidence of pleural effusion, focal consolidation, or pneumothorax. Pulmonary vascularity: Unremarkable. Heart/mediastinum: Cardiomediastinal silhouette is unremarkable. Musculoskeletal: No acute osseous pathology. IMPRESSION: No acute cardiopulmonary disease/process.
[2023-12-08 18:00] LABS: Anisocytosis Moderate; Basophils % (A) 0 %; Eosinophils # (A) 0.4 k/uL (0-0.7); Eosinophils % (A) 3 %; HCT 24.6 % (39.0-53.0); HGB 8.6 gm/dL (13.0-17.5); Lymphocytes # (A) 1.2 k/uL (1.0-4.8); Lymphocytes % (A) 10 %; MCH 36.3 pg (25.0-35.0); MCHC 35.1 g/dL (31.0-37.0); MCV 103.5 fL (80.0-100.0); Macrocytosis Moderate; Mean Platelet Volume 11.7; Monocytes # (A) 0.8 k/uL (0-1.0); Monocytes % (A) 6 %; Neutrophils # (A) 10.1 k/uL (1.3-7.7); Neutrophils % (A) 79 %; Poikilocytosis Slight; RBC 2.37 m/uL (4.30-5.90); RDW 22.2 % (11.5-15.5); WBC 12.8 k/uL (3.8-10.6)
[2023-12-08 18:02] LABS: INR 1.5 (<1.2); Partial Thromboplastin Time 26.4 sec (22.0-30.0); Prothrombin Time 15.2 sec (10.0-12.5)
[2023-12-08 18:05] LABS: ALT 46 U/L (4-49); African American GFR (CKD) >90 (>60 ml/min/1.73 sqM); Anion Gap 2 mmol/L; Blood Urea Nitrogen 28 mg/dL (9-20); Calcium 7.9 mg/dL (8.4-10.2); Carbon Dioxide 23 mmol/L (22-30); Chloride 108 mmol/L (98-107); Glucose 125 mg/dL (74-99); Non-African American GFR(CKD) >90 (>60 ml/min/1.73 sqM); Sodium 133 mmol/L (137-145); Total Bilirubin 2.8 mg/dL (0.2-1.3)
[2023-12-08 18:21] LABS: AST 75 U/L (17-59); Albumin 2.6 g/dL (3.5-5.0); Alkaline Phosphatase 75 U/L (38-126); Potassium 4.9 mmol/L (3.5-5.1); Total Protein 5.6 g/dL (6.3-8.2)
[2023-12-08 18:50] LABS: Anisocytosis (M) Present; Platelet Count 86 k/uL (150-450); Polychromasia Present
--- NOTE | 2023-12-08 19:43 | ED ---
Weakness HPI - General Chief complaint: Shortness of Breath Stated complaint: Panting, exhaustion Time Seen by Provider: 12/08/23 19:11 Source: patient, RN notes reviewed, old records reviewed, Caregiver Mode of arrival: ambulatory Limitations: no limitations - History of Present Illness Initial comments: This is a 48-year-old male to ER for severe shortness of breath weakness with a significantly elevated heart rate. 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 Patient is having vomiting of blood, coffee- ground and black vomit as well as blood in his stool. No abdominal pain. MD Complaint: generalized weakness, lack of energy -: days(s) Location: generalized Severity: severe Severity scale (1-10): 8 Quality: aching Consistency: constant Improves with: none Worsens with: none Context: history of similar Associated Symptoms: nausea/vomiting, shortness of breath - Related Data Home Medications Medication Instructions Recorded Confirmed Furosemide [Lasix] 20 mg PO DAILY 12/08/22 12/09/22 Multivitamins, Thera [Multivitamin 1 tab PO DAILY 12/08/22 12/09/22 (formulary)] Spironolactone 50 mg PO DAILY 12/08/22 12/09/22 Allergies Allergy/AdvReac Type Severity Reaction Status Date / Time No Known Allergies Allergy Verified 12/09/22 06:52 Review of Systems ROS Statement: Those systems with pertinent positive or pertinent negative responses have been documented in the HPI. ROS Other: All systems not noted in ROS Statement are negative. 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 History of Any Multi-Drug Resistant Organisms: None Reported Past Surgical History: Orthopedic Surgery Additional Past Surgical History / Comment(s): RIGHT ANKLE- PLATES AND SCREWS, gastro tube, tracheostomy. Past Anesthesia/Blood Transfusion Reactions: No Reported Reaction Past Psychological History: No Psychological Hx Reported Smoking Status: Current every day smoker - Past Family History Father Family Medical History: Myocardial Infarction ([place]) Additional Family Medical History / Comment(s): PULMOPNARY FIBROSIS AND HEART PROBLEMS. Father at the age of 65yrs from multiple medical problems. Mother Family Medical History: Cancer Additional Family Medical History / Comment(s): SKIN CANCER, DEPRESSION. AGORAPHOBIA. Mother is 63 yrs old. General Exam Limitations: no limitations General appearance: alert, anxious, in distress Head exam: Present: atraumatic, normocephalic, normal inspection Eye exam: Present: normal appearance, PERRL, EOMI. Absent: scleral icterus, con junctival injection, periorbital swelling ENT exam: Present: normal exam, mucous membranes moist Neck exam: Present: normal inspection. Absent: tenderness, meningismus, lymphadenopathy Respiratory exam: Present: normal lung sounds bilaterally. Absent: respiratory distress, wheezes, rales, rhonchi, stridor Cardiovascular Exam: Present: normal rhythm, tachycardia, normal heart sounds. Absent: systolic murmur, diastolic murmur, rubs, gallop, clicks GI/Abdominal exam: Present: soft, normal bowel sounds. Absent: distended, tenderness, guarding, rebound, rigid Extremities exam: Present: normal inspection, full ROM, normal capillary refill. Absent: tenderness, pedal edema, joint swelling, calf tenderness Back exam: Present: normal inspection Neurological exam: Present: alert, oriented X3, CN II-XII intact Psychiatric exam: Present: normal affect, normal mood Skin exam: Present: warm, dry, intact, normal color. Absent: rash Course Vital Signs 12/08/23 12/08/23 12/08/23 17:20 19:20 20:00 Temperature 98.6 F Pulse Rate 129 H 101 H 117 H Respiratory 20 18 20 Rate Blood Pressure 138/88 118/74 117/71 O2 Sat by Pulse 98 97 95 Oximetry 12/08/23 12/08/23 21:00 22:10 Temperature 98.5 F Pulse Rate 100 101 H Respiratory 18 18 Rate Blood Pressure 124/71 110/65 O2 Sat by Pulse 94 L 96 Oximetry - Reevaluation(s) Reevaluation #1: 12/08/23 19:42 Medical records reviewed Reevaluation #2: 12/08/23 19:42 Patient symptoms are unchanged Reevaluation #3: 12/08/23 19:42 If symptoms are improved Reevaluation #4: 12/08/23 19:42 Was pt. sent in by a medical professional or institution ([facility]TTY Haley, PUTTY PATCHER, urgent care, hospital, or usp...) When possible be specific @ -no Did you speak to anyone other than the patient for history (EMS, parent, family, police, friend...)? What history was obtained from this source @ -no Did you review nursing and triage notes (agree or disagree)? Why? @ -agree Are old charts reviewed (outside hosp., previous admission, EMS record, old EKG, old radiological studies, urgent care reports/EKG's, usp records)? Report findings @ -yes Differential Diagnosis (chest pain, altered mental status, abdominal pain women, abdominal pain men, vaginal bleeding, weakness, fever, dyspnea, syncope, headache, dizziness, GI bleed, back pain, seizure, CVA, palpatations, mental health, musculoskeletal)? @ -prior EKG interpreted by me (3pts min.). @ -yes X-rays interpreted by me (1pt min.). @ -no CT interpreted by me (1pt min.). @ -no U/S interpreted by me (1pt. min.). @ -no What testing was considered but not performed or refused? (CT, X-rays, U/S, labs)? Why? @ -none What meds were considered but not given or refused? Why? @ -none Did you discuss the management of the patient with other professionals (professionals i.e. LETTY Haley, PUTTY PATCHER, lab, RT, psych nurse, social sciences instructor, cotton farmer, teacher, custodial officer, pillowcase turner)? Give summary @ -no Was smoking cessation discussed for >3mins.? @ -no Was critical care preformed (if so, how long)? @ -yes31 Were there social determinants of health that impacted care today? How? (Homelessness, low income, unemployed, alcoholism, drug addiction, transportation, low edu. Level, literacy, decrease access to med. care, fdc, rehab)? @ -none Was there de-escalation of care discussed even if they declined (Discuss DNR or withdrawal of care, Hospice)? DNR status @ -no What co-morbidities impacted this encounter? (DM, HTN, Smoking, COPD, CAD, Cancer, CVA, ARF, Chemo, Hep., AIDS, mental health diagnosis, sleep apnea, morbid obesity)? @ -none Was patient admitted / discharged? Hospital course, mention meds given and route, prescriptions, significant lab abnormalities, going to OR and other pertinent info. @ - 48 male to ER for evaluation of severe shortness of breath weakness and GI bleed Black stools with black puke, patient given octreotide here in the ER, blood pressure is maintaining normal and stable but remains significant tachycardic and will transfer for GI evaluation and possible need for transfusion Transferred Admitted Undiagnosed new problem with uncertain prognosis? @ -no Drug Therapy requiring intensive monitoring for toxicity (Heparin, Nitro, Insulin, Cardizem)? @ -no Were any procedures done? @ -no Diagnosis/symptom? @ -Acute upper GI bleed with anemia Acute, or Chronic, or Acute on Chronic? @ -Acute Uncomplicated (without systemic symptoms) or Complicated (systemic symptoms)? @ -Complicated Side effects of treatment? @ -no Exacerbation, Progression, or Severe Exacerbation? @ -exacerbation Poses a threat to life or bodily function? How? (Chest pain, [place], [place], pneumonia, PE, COPD, DKA, ARF, appy, cholecystitis, CVA, Diverticulitis, Homicidal, Suicidal, threat to staff... and all critical care pts) @ -yes with significant upper GI bleed Reevaluation #5: 12/08/23 19:43 Differential Dyspnea: Coronary syndrome, arrhythmia, tamponade, asthma, COPD, pulmonary embolism, pneumonia, pneumothorax, pulmonary effusion, anaphylaxis, diabetic ketoacidosis, flailed chest, pulmonary contusion, diaphragmatic rupture, anemia, neuromuscular, this is not meant to be an all-inclusive list. Differential Weakness: Hypoglycemia, shock, sepsis, hyponatremia, anemia, infection, [place], ETOH, adverse medicine reaction, overdose, stroke, this is not meant to be an all-inclusive list. - Consultations Consultation #1: spoke sigrid Garcia accepts patient for transfer EKG Findings - EKG Comments: EKG Findings:: EKG sinus tachycardia 117 IA 129 QRS 85 QTc 354 Medical Decision Making - Medical Decision Making 48 male to ER for evaluation of severe shortness of breath weakness and GI bleed Black stools with black puke, patient given octreotide here in the ER, blood pressure is maintaining normal and stable but remains significant tachycardic and will transfer for GI evaluation and possible need for transfusion - Lab Data Result diagrams: 12/08/23 17:30 12/08/23 17:30 Lab Results 12/08/23 12/08/23 12/08/23 Range/Units 17:30 17:30 17:30 WBC 12.8 H (3.8-10.6) k/uL RBC 2.37 L (4.30-5.90) m/uL Hgb 8.6 L (13.0-17.5) gm/dL Hct 24.6 L (39.0-53.0) % MCV 103.5 H (80.0-100.0) fL MCH 36.3 H (25.0-35.0) pg MCHC 35.1 (31.0-37.0) g/dL RDW 22.2 H (11.5-15.5) % Plt Count 86 L (150-450) k/uL MPV 11.7 Neutrophils % 79 % Lymphocytes % 10 % Monocytes % 6 % Eosinophils % 3 % Basophils % 0 % Neutrophils # 10.1 H (1.3-7.7) k/uL Lymphocytes # 1.2 (1.0-4.8) k/uL Monocytes # 0.8 (0-1.0) k/uL Eosinophils # 0.4 (0-0.7) k/uL Basophils # 0.0 (0-0.2) k/uL Manual Slide Review Performed Polychromasia Present Poikilocytosis Slight Anisocytosis Moderate Anisocytosis (manual) Present Macrocytosis Moderate PT 15.2 H (10.0-12.5) sec INR 1.5 H (<1.2) APTT 26.4 (22.0-30.0) sec Sodium 133 L (137-145) mmol/L Potassium 4.9 (3.5-5.1) mmol/L Chloride 108 H (98-107) mmol/L Carbon Dioxide 23 (22-30) mmol/L Anion Gap 2 mmol/L BUN 28 H (9-20) mg/dL Creatinine 0.76 (0.66-1.25) mg/dL Est GFR (CKD-EPI)AfAm >90 (>60 ml/min/1.73 sqM) Est GFR (CKD-EPI)NonAf >90 (>60 ml/min/1.73 sqM) Glucose 125 H (74-99) mg/dL Calcium 7.9 L (8.4-10.2) mg/dL Total Bilirubin 2.8 H (0.2-1.3) mg/dL AST 75 H (17-59) U/L ALT 46 (4-49) U/L Alkaline Phosphatase 75 (38-126) U/L Troponin I (0.000-0.034) ng/mL Total Protein 5.6 L (6.3-8.2) g/dL Albumin 2.6 L (3.5-5.0) g/dL Blood Type Blood Type Recheck Bld Type Recheck Status Antibody Screen Spec Expiration Date 12/08/23 12/08/23 Range/Units 17:30 17:30 WBC (3.8-10.6) k/uL RBC (4.30-5.90) m/uL Hgb (13.0-17.5) gm/dL Hct (39.0-53.0) % MCV (80.0-100.0) fL MCH (25.0-35.0) pg MCHC (31.0-37.0) g/dL RDW (11.5-15.5) % Plt Count (150-450) k/uL MPV Neutrophils % % Lymphocytes % % Monocytes % % Eosinophils % % Basophils % % Neutrophils # (1.3-7.7) k/uL Lymphocytes # (1.0-4.8) k/uL Monocytes # (0-1.0) k/uL Eosinophils # (0-0.7) k/uL Basophils # (0-0.2) k/uL Manual Slide Review Polychromasia Poikilocytosis Anisocytosis Anisocytosis (manual) Macrocytosis PT (10.0-12.5) sec INR (<1.2) APTT (22.0-30.0) sec Sodium (137-145) mmol/L Potassium (3.5-5.1) mmol/L Chloride (98-107) mmol/L Carbon Dioxide (22-30) mmol/L Anion Gap mmol/L BUN (9-20) mg/dL Creatinine (0.66-1.25) mg/dL Est GFR (CKD-EPI)AfAm (>60 ml/min/1.73 sqM) Est GFR (CKD-EPI)NonAf (>60 ml/min/1.73 sqM) Glucose (74-99) mg/dL Calcium (8.4-10.2) mg/dL Total Bilirubin (0.2-1.3) mg/dL AST (17-59) U/L ALT (4-49) U/L Alkaline Phosphatase (38-126) U/L Troponin I 0.022 (0.000-0.034) ng/mL Total Protein (6.3-8.2) g/dL Albumin (3.5-5.0) g/dL Blood Type O Positive Blood Type Recheck O Pos Bld Type Recheck Status No Antibody Screen NEGATIVE Spec Expiration Date 12/11/20232329 Critical Care Time Critical Care Time: Yes Total Critical Care Time: 31 Disposition Clinical Impression: Sinus tachycardia, Cirrhosis, Coagulopathy, Anemia, GI bleed Disposition: OTHER INSTITUTION NOT DEFINED Condition: Serious Is patient prescribed a controlled substance at d/c from ED?: No Referrals: Jaylen Carlin MD [Primary Care Provider] - 1-2 days Time of Disposition: 20:16 - Out of Hospital Transfer - Req. Specs Out of Hospital Transfer - Requested Specifics: Other Emergency Center ([facility]
[2023-12-08 20:11] VITALS: RESP 18
[2023-12-08] MEDS ORDERED: ONDANSETRON 4 MG/2 ML VIAL IVP PRN (20:18)
[2023-12-08] MEDS ORDERED: MORPHINE SULFATE 4 MG/ML SYRINGE IVP PRN (20:18)
[2023-12-08] MEDS: SODIUM CHLORIDE 0.9% 1,000 ML IV STA (21:11)
[2023-12-08] MEDS: ONDANSETRON 4 MG/2 ML VIAL IVP STA (21:11)
[2023-12-08] MEDS: PANTOPRAZOLE 40 MG/10 ML VIAL IVP STA (21:11)
[2023-12-08] MEDS: MORPHINE SULFATE 4 MG/ML SYRINGE IVP STA (21:12)
[2023-12-08] MEDS: OCTREOTIDE 100 MCG/ML INJ IVP STA (21:13)
[2023-12-08 22:27] VITALS: BP 110/65; PULSE 101; TEMP 98.5
== END 2023-12-08 22:10 | disposition other institution (70) ==
LOC: EC 17:09
DX: R00.0 Tachycardia, unspecified (principal); K70.30 Alcoholic cirrhosis of liver without ascites; D68.9 Coagulation defect, unspecified; D64.9 Anemia, unspecified; K92.2 Gastrointestinal hemorrhage, unspecified; F17.200 Nicotine dependence, unspecified, uncomplicated
CPT/HCPCS: 99291; 96374; 96375 ×3; 96361; 36415; 93005; 86900; 86901; 80053; 84484; 85025; 85610; 85730; 86850; 71046; J2270; J2405; J2354; C9113

== ENCOUNTER 2023-12-22 10:59 | Emergency (ER) | payer MEDICARE ==
[2023-12-22 12:02] LABS: INR 1.5 (<1.2); Partial Thromboplastin Time 28.4 sec (22.0-30.0); Prothrombin Time 15.9 sec (10.0-12.5)
--- NOTE | 2023-12-22 12:15 | ED ---
Abdominal Pain HPI - General Chief Complaint: Abdominal Pain Stated Complaint: ABD PAIN,BACK PAIN Time Seen by Provider: 12/22/23 11:14 Source: patient Mode of arrival: ambulatory Limitations: no limitations - History of Present Illness Initial Comments: Patient is a 48-year-old gentleman with a history of alcoholic cirrhosis who presents to emergency room with complaints of abdominal pain, abdominal distention and shortness breath. Patient was discharged last week from [facility] where he was admitted for similar symptoms. He had his lungs and abdomen trained at this time time. He was given pantoprazole and Bactrim upon discharge. The patient has some mild cough and congestion. Denies any fevers. Denies any discoloration of the abdomen. Prior to the beginning of December he had only had 1 previous paracentesis and that was 6 years ago. He has not had an alcoholic drink in 6 years. He has not followed up with his PCP since being discharged last week. - Related Data Home Medications Medication Instructions Recorded Confirmed Pantoprazole [Protonix] 40 mg PO DAILY 12/22/23 12/22/23 Sulfamethox-Tmp 800-160Mg [Bactrim 1 tab PO DAILY 12/22/23 12/22/23 DS 800-160 mg] Allergies Allergy/AdvReac Type Severity Reaction Status Date / Time No Known Allergies Allergy Verified 12/22/23 11:07 Review of Systems ROS Statement: Those systems with pertinent positive or pertinent negative responses have been documented in the HPI. ROS Other: All systems not noted in ROS Statement are negative. Past Medical History Past Medical History: Pneumonia, Seizure Disorder Additional Past Medical History / Comment(s): EPILEPSY CHILD-HAS'NT BEEN ON MEDS FOR SEIZURES SINCE AGE 11 OR 12., seizure related to alcohol withdrawal as well as delirium tremors, pneumonia /SEPSIS IN 2012 WAS VENTILATED, PSORIASES, PANCREATITIS. History of Any Multi-Drug Resistant Organisms: None Reported Past Surgical History: Orthopedic Surgery Additional Past Surgical History / Comment(s): RIGHT ANKLE- PLATES AND SCREWS, gastro tube, tracheostomy. Past Anesthesia/Blood Transfusion Reactions: No Reported Reaction Past Psychological History: No Psychological Hx Reported Smoking Status: Current every day smoker - Past Family History Father Family Medical History: Myocardial Infarction (HI) Additional Family Medical History / Comment(s): PULMOPNARY FIBROSIS AND HEART PROBLEMS. Father at the age of 65yrs from multiple medical problems. Mother Family Medical History: Cancer Additional Family Medical History / Comment(s): SKIN CANCER, DEPRESSION. A GORAPHOBIA. Mother is 63 yrs old. General Exam Limitations: no limitations General appearance: alert, in no apparent distress Eye exam: Present: normal appearance ENT exam: Present: normal exam Neck exam: Present: full ROM. Absent: meningismus Respiratory exam: Present: normal lung sounds bilaterally. Absent: respiratory distress Cardiovascular Exam: Present: regular rate, normal rhythm GI/Abdominal exam: Present: soft, distended, other (Diffuse tenderness without any rebound tenderness, rigidity or peritoneal signs, no discoloration or cullens sign) Extremities exam: Present: full ROM Back exam: Present: full ROM Neurological exam: Present: alert, oriented X3, CN II-XII intact Psychiatric exam: Present: normal affect, normal mood Skin exam: Present: warm, pallor Course Vital Signs 12/22/23 12/22/23 12/22/23 11:05 14:03 15:08 Temperature 98.6 F 98.2 F Pulse Rate 119 H 93 85 Respiratory 18 14 16 Rate Blood Pressure 114/74 104/84 108/69 O2 Sat by Pulse 98 100 100 Oximetry 12/22/23 12/22/23 16:00 17:00 Temperature Pulse Rate 92 94 Respiratory 15 16 Rate Blood Pressure 108/78 107/75 O2 Sat by Pulse 98 97 Oximetry - Reevaluation(s) Reevaluation #1: 12/22/23 18:45 Patient will be transferred ERT ER to [facility] where he was admitted last week. I spoke with Dr. Eli regarding transfer and admission plan. Patient given pain medicine emergency room. I discussed management of this patient with attending ED physicians Dr. Mcduffie and Dr Valencia today. Medical Decision Making - Medical Decision Making Was pt. sent in by a medical professional or institution (, PA, PROCUREMENT ANALYST, urgent care, hospital, or group home...) When possible be specific @ -[No] Did you speak to anyone other than the patient for history (EMS, parent, family, police, friend...)? What history was obtained from this source @ -[No] Did you review nursing and triage notes (agree or disagree)? Why? @ -[I reviewed and agree with nursing and triage notes] Were old charts reviewed (outside hosp., previous admission, EMS record, old EKG, old radiological studies, urgent care reports/EKG's, group home records)? Report findings @ -[yes old charts were reviewed] Differential Diagnosis (chest pain, altered mental status, abdominal pain women, abdominal pain men, vaginal bleeding, weakness, fever, dyspnea, syncope, headache, dizziness, GI bleed, back pain, seizure, CVA, palpatations, mental health, musculoskeletal)? @ -[Cyanosis, paracentesis, thoracentesis, pleural effusions, URI, COVID-19, influenza, pancreatitis, collateral vein DVT, pancytopenia EKG interpreted by me (3pts min.). @ -[EKG shows sinus rhythm at a rate of 87 bpm with PVCs. No acute ST segment elevation or T-wave changes X-rays interpreted by me (1pt min.). @ -X-rays negative for any obvious pneumonia pneumothorax. CT interpreted by me (1pt min.). @ -CT of the abdomen is showing inflammation and mild swelling secondary to the portal hypertension, renal vein thrombus seen and cirrhosis. U/S interpreted by me (1pt. min.). @ -[None done] What testing was considered but not performed or refused? (CT, X-rays, U/S, labs)? Why? @ -[None] What meds were considered but not given or refused? Why? @ -[None] Did you discuss the management of the patient with other professionals (professionals i.e. , PA, PROCUREMENT ANALYST, lab, RT, psych nurse, manager social media, cloth printer, teacher, security control room officer, welfare case worker)? Give summary @ -[Spoke with Dr. Tadeo Eli ER physician at [facility] regarding patient's symptoms workup and management and transfer. The patient is approved to be transferred ERT ER to her facility where he was seen in Last week. I discussed patient's symptoms workup and management with attending ED physician Dr. Valencia today. Was smoking cessation discussed for >3mins.? @ -[No] Was critical care preformed (if so, how long)? @ -[No] Were there social determinants of health that impacted care today? How? (Artemio elessness, low income, unemployed, alcoholism, drug addiction, transportation, low edu. Level, literacy, decrease access to med. care, nursing home, rehab)? @ -[No] Was there de-escalation of care discussed even if they declined (Discuss DNR or withdrawal of care, Hospice)? DNR status @ -[No] What co-morbidities impacted this encounter? (DM, HTN, Smoking, COPD, CAD, Cancer, CVA, ARF, Chemo, Hep., AIDS, mental health diagnosis, sleep apnea, morbid obesity)? @ -[History of alcohol abuse, cirrhosis, thrombocytopenia, portal vein thrombosis pleural effusions Was patient admitted / discharged? Hospital course, mention meds given and route, prescriptions, significant lab abnormalities, going to OR and other pertinent info. @ -[Patient will be admitted to the hospital and transfer to [facility] ER for admission and further management Undiagnosed new problem with uncertain prognosis? @ -[No] Drug Therapy requiring intensive monitoring for toxicity (Heparin, Nitro, Insulin, Cardizem)? @ -[No] Were any procedures done? @ -[No] Diagnosis/symptom? @ -[Abdominal pain, abdominal distention, shortness breath, COVID-19, thrombocytopenia, portal vein thrombus, portal hypertension Acute, or Chronic, or Acute on Chronic? @ -Acute Uncomplicated (without systemic symptoms) or Complicated (systemic symptoms)? @ -[Located Side effects of treatment? @ -[No] Exacerbation, Progression, or Severe Exacerbation? @ -Exacerbation Poses a threat to life or bodily function? How? (Chest pain, USA, HI, pneumonia, PE, COPD, DKA, ARF, appy, cholecystitis, CVA, Diverticulitis, Homicidal, Suicidal, threat to staff... and all critical care pts) @ -Yes - Lab Data Result diagrams: 12/22/23 11:43 12/22/23 11:43 Lab Results 12/22/23 12/22/23 12/22/23 Range/Units 11:43 11:43 11:43 WBC 1.6 L (3.8-10.6) k/uL RBC 3.38 L (4.30-5.90) m/uL Hgb 11.7 L D (13.0-17.5) gm/dL Hct 36.3 L (39.0-53.0) % MCV 107.3 H (80.0-100.0) fL MCH 34.5 (25.0-35.0) pg MCHC 32.2 (31.0-37.0) g/dL RDW 19.2 H (11.5-15.5) % Plt Count 44 L (150-450) k/uL MPV 11.9 Neutrophils % 61 % Lymphocytes % 9 % Monocytes % 23 % Eosinophils % 1 % Basophils % 1 % Neutrophils # 1.0 L (1.3-7.7) k/uL Lymphocytes # 0.2 L (1.0-4.8) k/uL Monocytes # 0.4 (0-1.0) k/uL Eosinophils # 0.0 (0-0.7) k/uL Basophils # 0.0 (0-0.2) k/uL Manual Slide Review Performed Hypochromasia Marked Poikilocytosis Slight Anisocytosis Slight Macrocytosis Marked A PT 15.9 H (10.0-12.5) sec INR 1.5 H (<1.2) APTT 28.4 (22.0-30.0) sec Sodium 134 L (137-145) mmol/L Potassium 3.5 (3.5-5.1) mmol/L Chloride 108 H (98-107) mmol/L Carbon Dioxide 20 L (22-30) mmol/L Anion Gap 6 mmol/L BUN 16 (9-20) mg/dL Creatinine 1.05 (0.66-1.25) mg/dL Est GFR (CKD-EPI)AfAm >90 (>60 ml/min/1.73 sqM) Est GFR (CKD-EPI)NonAf 83 (>60 ml/min/1.73 sqM) Glucose 138 H (74-99) mg/dL Calcium 8.4 (8.4-10.2) mg/dL Total Bilirubin 3.2 H (0.2-1.3) mg/dL AST 53 (17-59) U/L ALT 44 (4-49) U/L Alkaline Phosphatase 175 H (38-126) U/L Troponin I (0.000-0.034) ng/mL Total Protein 6.4 (6.3-8.2) g/dL Albumin 2.7 L (3.5-5.0) g/dL Lipase 440 H (23-300) U/L Urine Color Urine Appearance (Clear) Urine pH (5.0-8.0) Ur Specific Jasper (1.001-1.035) Urine Protein (Negative) Urine Glucose (UA) (Negative) Urine Ketones (Negative) Urine Blood (Negative) Urine Nitrite (Negative) Urine Bilirubin (Negative) Urine Urobilinogen (<2.0) mg/dL Ur Leukocyte Esterase (Negative) Influenza Type A (PCR) (Not Detectd) Influenza Type B (PCR) (Not Detectd) RSV (PCR) (Not Detectd) SARS-CoV-2 (PCR) (Not Detectd) 12/22/23 12/22/23 12/22/23 Range/Units 11:43 12:21 12:30 WBC (3.8-10.6) k/uL RBC (4.30-5.90) m/uL Hgb (13.0-17.5) gm/dL Hct (39.0-53.0) % MCV (80.0-100.0) fL MCH (25.0-35.0) pg MCHC (31.0-37.0) g/dL RDW (11.5-15.5) % Plt Count (150-450) k/uL MPV Neutrophils % % Lymphocytes % % Monocytes % % Eosinophils % % Basophils % % Neutrophils # (1.3-7.7) k/uL Lymphocytes # (1.0-4.8) k/uL Monocytes # (0-1.0) k/uL Eosinophils # (0-0.7) k/uL Basophils # (0-0.2) k/uL Manual Slide Review Hypochromasia Poikilocytosis Anisocytosis Macrocytosis PT (10.0-12.5) sec INR (<1.2) APTT (22.0-30.0) sec Sodium (137-145) mmol/L Potassium (3.5-5.1) mmol/L Chloride (98-107) mmol/L Carbon Dioxide (22-30) mmol/L Anion Gap mmol/L BUN (9-20) mg/dL Creatinine (0.66-1.25) mg/dL Est GFR (CKD-EPI)AfAm (>60 ml/min/1.73 sqM) Est GFR (CKD-EPI)NonAf (>60 ml/min/1.73 sqM) Glucose (74-99) mg/dL Calcium (8.4-10.2) mg/dL Total Bilirubin (0.2-1.3) mg/dL AST (17-59) U/L ALT (4-49) U/L Alkaline Phosphatase (38-126) U/L Troponin I <0.012 (0.000-0.034) ng/mL Total Protein (6.3-8.2) g/dL Albumin (3.5-5.0) g/dL Lipase (23-300) U/L Urine Color Yellow Urine Appearance Clear (Clear) Urine pH 6.5 (5.0-8.0) Ur Specific Jasper 1.012 (1.001-1.035) Urine Protein Negative (Negative) Urine Glucose (UA) Negative (Negative) Urine Ketones Negative (Negative) Urine Blood Negative (Negative) Urine Nitrite Negative (Negative) Urine Bilirubin Negative (Negative) Urine Urobilinogen 6.0 (<2.0) mg/dL Ur Leukocyte Esterase Negative (Negative) Influenza Type A (PCR) Not Detected (Not Detectd) Influenza Type B (PCR) Not Detected (Not Detectd) RSV (PCR) Not Detected (Not Detectd) SARS-CoV-2 (PCR) Detected A (Not Detectd) - EKG Data -: EKG Interpreted by Wi - Radiology Data Radiology results: report reviewed, image reviewed Disposition Clinical Impression: Abdominal pain, COVID-19, Portal vein thrombosis, Pleural effusion, Ascites, Portal hypertension Disposition: OTHER INSTITUTION NOT DEFINED Condition: Fair Is patient prescribed a controlled substance at d/c from ED?: No Referrals: Jaylen Carlin MD [Primary Care Provider] - 1-2 days Decision to Admit Reason: Admit from Decision Time: 17:54 (transfer to [facility]) - Out of Hospital Transfer - Req. Specs Out of Hospital Transfer - Requested Specifics: Other Non-Acute (GI services)
[2023-12-22 12:20] LABS: ALT 44 U/L (4-49); AST 53 U/L (17-59); African American GFR (CKD) >90 (>60 ml/min/1.73 sqM); Albumin 2.7 g/dL (3.5-5.0); Alkaline Phosphatase 175 U/L (38-126); Anion Gap 6 mmol/L; Blood Urea Nitrogen 16 mg/dL (9-20); Calcium 8.4 mg/dL (8.4-10.2); Carbon Dioxide 20 mmol/L (22-30); Chloride 108 mmol/L (98-107); Glucose 138 mg/dL (74-99); Lipase 440 U/L (23-300); Non-African American GFR(CKD) 83 (>60 ml/min/1.73 sqM); Potassium 3.5 mmol/L (3.5-5.1); Sodium 134 mmol/L (137-145); Total Bilirubin 3.2 mg/dL (0.2-1.3); Total Protein 6.4 g/dL (6.3-8.2)
[2023-12-22 12:34] LABS: Anisocytosis Slight; Basophils % (A) 1 %; Eosinophils % (A) 1 %; HCT 36.3 % (39.0-53.0); Hypochromasia Marked; Lymphocytes # (A) 0.2 k/uL (1.0-4.8); Lymphocytes % (A) 9 %; MCH 34.5 pg (25.0-35.0); MCHC 32.2 g/dL (31.0-37.0); MCV 107.3 fL (80.0-100.0); Macrocytosis Marked; Mean Platelet Volume 11.9; Monocytes # (A) 0.4 k/uL (0-1.0); Monocytes % (A) 23 %; Neutrophils % (A) 61 %; Poikilocytosis Slight; RBC 3.38 m/uL (4.30-5.90); RDW 19.2 % (11.5-15.5); WBC 1.6 k/uL (3.8-10.6)
[2023-12-22 12:38] LABS: HGB 11.7 gm/dL (13.0-17.5)
[2023-12-22 12:47] LABS: Platelet Count 44 k/uL (150-450)
[2023-12-22 13:00] LABS: Appearance,Urine Clear (Clear); Bilirubin,Urine Negative (Negative); Blood,Urine Negative (Negative); Color,Urine Yellow; Glucose,Urine (UA) Negative (Negative); Ketones,Urine Negative (Negative); Leukocyte Esterase,Urine Negative (Negative); Nitrite,Urine Negative (Negative); PH, Urine 6.5 (5.0-8.0); Protein,Urine Negative (Negative); Specific Gravity,Urine 1.012 (1.001-1.035)
--- NOTE | 2023-12-22 15:41 | CT ---
EXAMINATION: CT ABDOMEN AND PELVIS WITH IV CONTRAST DATE OF EXAMINATION: 20/11/2023. COMPARISON: None available. INDICATION: Pain. PROCEDURE: Axial CT of the abdomen and pelvis was performed with contrast and sagittal and coronal reformatted images were performed. CT dose lowering techniques were used, to include: automated expos ure control, adjustment for patient size, and/or use of iterative reconstruction. 100 mL of Isovue-30 0 was given intravenously. FINDINGS: LOWER CHEST : There is a small right pleural effusion with some compressive atelectasis involving th e right lower lobe. Mild partially visualized gynecomastia is seen. ABDOMEN: Liver and Biliary system: There is significant nodularity throughout the liver contour compatible wi th cirrhosis. No focal liver lesions are clearly identified. There is thrombus involving the main por karen vein as well as what appears to be intrahepatic portal vein thrombus. There is minimal patency of the portal vein with significant thrombus noted. Adrenal glands: Normal. Kidneys and ureters: Spleen is enlarged measuring 15 cm in AP dimension Spleen: Normal. Pancreas: Normal. Gallbladder: Several calcified gallstones are seen in the gallbladder. Lymph nodes, Peritoneum and mesentery: There is a large amount of abdominal and pelvic ascites. Larg e caliber gastrohepatic ligament varices are seen. There are small caliber esophageal varices and gas tric fundal varices. Gastrointestinal tract: There are no dilated loops of bowel or free intraperitoneal air. The appe ndix is normal. There is some thickening of loops of bowel wall throughout the small bowel and likely edema which may relate to the patient's cirrhosis and fluid status with inflammatory or infectious e nteritis not excluded. There is mild descending colonic and sigmoid colonic diverticulosis without ev idence of diverticulitis. Aorta/IVC: No aortic aneurysm. IVC normal. Abdominal wall: Small umbilical hernia containing fluid. PELVIS: Fluid: Large amount of pelvic ascites. Lymph Nodes: There is no pelvic or inguinal lymphadenopathy.. Urinary bladder: Normal. BONES: There are no osseous destructive lesions.. ADDITIONAL SIGNIFICANT FINDINGS: None. IMPRESSION: 1. Marked cirrhotic appearance the liver with portal vein thrombus an additional signs of portal veno us hypertension including large volume ascites, splenomegaly and varices described above. 2. Thickening and edematous small bowel could be inflammatory or infectious versus related to the pat ient's cirrhosis and fluid status. 3. Diverticulosis without evidence of diverticulitis. 4. Cholelithiasis. 5. Small right pleural effusion with compressive atelectasis in the right lower lobe.
[2023-12-22] MEDS: HYDROmorphone 1 MG/ML 1 ML SYRINGE IVP STA ×2 (17:03→18:47)
[2023-12-22 17:12] VITALS: RESP 16
--- NOTE | 2023-12-22 17:58 | XR ---
EXAMINATION TYPE: XR chest 2V DATE OF EXAM: 12/22/2023 5:37 PM CLINICAL INDICATION:Male, 48 years old with history of shortness of breath; COMPARISON: Chest radiographs from TECHNIQUE: XR chest 2V Frontal and lateral views of the chest. FINDINGS: Lungs/Pleura: There is no evidence of pleural effusion, focal consolidation, or pneumothorax. Pulmonary vascularity: Unremarkable. Heart/mediastinum: Cardiomediastinal silhouette is unremarkable. Musculoskeletal: No acute osseous pathology. IMPRESSION: No acute cardiopulmonary disease/process.
[2023-12-22 19:01] VITALS: BP 142/87; PULSE 91; TEMP 98.9
== END 2023-12-22 19:03 | disposition other institution (70) ==
LOC: EC 10:59
DX: U07.1 COVID-19 (principal); I81 Portal vein thrombosis; J90 Pleural effusion, not elsewhere classified; K76.6 Portal hypertension; D69.6 Thrombocytopenia, unspecified; I82.3 Embolism and thrombosis of renal vein; K70.31 Alcoholic cirrhosis of liver with ascites; F17.200 Nicotine dependence, unspecified, uncomplicated
CPT/HCPCS: 99285; 96374; 96376; 36415; 93005; 80053; 83690; 84484; 85025; 85610; 85730; 81003; 87636; 71046; 74177; J1170; Q9967

== ENCOUNTER → 2024-01-20 | Outpatient (CLI) | payer MEDICARE ==
[2024-01-20 19:06] LABS: Basophils # (A) 0.03 X 10*3/uL (0.00-0.10); Basophils % (A) 1.2 %; Eosinophils # (A) 0.07 X 10*3/uL (0.04-0.35); Eosinophils % (A) 2.9 %; HCT 39.6 % (39.6-50.0); HGB 12.5 g/dL (13.0-17.0); Immature Platelet Fraction 6.4 % (1.1-6.1); Lymphocytes # (A) 0.24 X 10*3/uL (0.90-5.00); Lymphocytes % (A) 9.9 %; MCH 32.3 pg (27.0-32.0); MCHC 31.6 g/dL (32.0-37.0); MCV 102.3 FL (80.0-97.0); Mean Platelet Volume 12.5 FL (9.5-12.2); Monocytes % (A) 8.3 %; NRBC Per 100 WBC 0 X 10*3/uL (0.00-0.01); Neutrophils # (A) 1.87 X 10*3/uL (1.80-7.70); Neutrophils % (A) 77.3 %; Platelet Count 66 X 10*3/uL (140-440); RBC 3.87 X 10*6/uL (4.40-5.60); RDW 16.9 % (11.5-14.5); WBC 2.42 X 10*3/uL (4.50-10.00)
[2024-01-20 22:03] LABS: ALT 29 U/L (10-49); AST 41 U/L (14-35); Albumin 3.4 g/dL (3.8-4.9); Albumin/Globulin Ratio 0.92 Ratio (1.60-3.17); Alkaline Phosphatase 129 U/L (41-126); BUN/Creat Ratio 12.64 Ratio (12.00-20.00); Blood Urea Nitrogen 13.9 mg/dL (9.0-27.0); Calcium 9.3 mg/dL (8.7-10.3); Carbon Dioxide 19.4 mmol/L (21.6-31.8); Chloride 104 mmol/L (96-109); Globulin 3.7 g/dL (1.6-3.3); Glucose 169 mg/dL (70-110); Potassium 4.1 mmol/L (3.5-5.5); Sodium 136 mmol/L (135-145); Total Bilirubin 0.9 mg/dL (0.3-1.2); Total Protein 7.1 g/dL (6.2-8.2)
== END | disposition home or self-care (01) ==
LOC: LABWHC1 12:13
PROVIDERS: ATTEND Internal Medicine Gastroenterology
DX: K70.30 Alcoholic cirrhosis of liver without ascites (principal)
CPT/HCPCS: 36415; 80053; 82105; 85025

== ENCOUNTER → 2024-04-27 | Outpatient (CLI) | payer MEDICARE ==
[2024-04-27 11:12] LABS: Basophils # (A) 0.03 X 10*3/uL (0.00-0.10); Basophils % (A) 1.5 %; Eosinophils # (A) 0.11 X 10*3/uL (0.04-0.35); Eosinophils % (A) 5.5 %; HCT 40.7 % (39.6-50.0); HGB 13.8 g/dL (13.0-17.0); Immature Grans, Automated 0 %; Immature Platelet Fraction 12.7 % (1.1-6.1); Lymphocytes # (A) 0.32 X 10*3/uL (0.90-5.00); MCH 33.7 pg (27.0-32.0); MCHC 33.9 g/dL (32.0-37.0); MCV 99.3 FL (80.0-97.0); Monocytes # (A) 0.21 X 10*3/uL (0.20-1.00); Monocytes % (A) 10.5 %; NRBC Per 100 WBC 0 X 10*3/uL (0.00-0.01); Neutrophils # (A) 1.33 X 10*3/uL (1.80-7.70); Neutrophils % (A) 66.5 %; Platelet Count 59 X 10*3/uL (140-440); RBC Morphology Normal (Normal); RDW 15.4 % (11.5-14.5)
[2024-04-27 15:22] LABS: ALT 88 U/L (10-49); AST 74 U/L (14-35); Albumin 3.7 g/dL (3.8-4.9); Albumin/Globulin Ratio 1.06 Ratio (1.60-3.17); Alkaline Phosphatase 131 U/L (41-126); BUN/Creat Ratio 11.33 Ratio (12.00-20.00); Blood Urea Nitrogen 10.2 mg/dL (9.0-27.0); Calcium 8.9 mg/dL (8.7-10.3); Carbon Dioxide 22.9 mmol/L (21.6-31.8); Chloride 108 mmol/L (96-109); Chol/HDL Ratio 1.92 Ratio; Ferritin 42.5 ng/mL (22.0-322.0); Globulin 3.5 g/dL (1.6-3.3); Glucose 87 mg/dL (70-110); Iron 119 UG/DL (65-175); LDL Cholesterol,Calculated 45.1 mg/dL (0.0-131.0); Potassium 4.6 mmol/L (3.5-5.5); Rheumatoid Factor, Qnt <15 IU/mL (0-15); Sodium 139 mmol/L (135-145); Total Bilirubin 1.6 mg/dL (0.3-1.2); Total Iron Binding Capacity 342 UG/DL (228-460); Total Protein 7.2 g/dL (6.2-8.2)
[2024-04-27 17:08] LABS: HIV 2 AB Non-Reactive (Non-Reactive); HIV AB P24 Non-Reactive (Non-Reactive); HIV P24 AG Non-Reactive (Non-Reactive)
== END | disposition home or self-care (01) ==
LOC: LABWHC1 07:19
PROVIDERS: ATTEND Family Medicine
DX: Z11.4 Encounter for screening for human immunodeficiency virus [HIV] (principal); Z12.5 Encounter for screening for malignant neoplasm of prostate; E55.9 Vitamin D deficiency, unspecified; R61 Generalized hyperhidrosis; R53.83 Other fatigue; R79.9 Abnormal finding of blood chemistry, unspecified
CPT/HCPCS: 36415; 80053; 80061; 82306; 82728; 83036; 83540; 83550; 83835; 84153; 84402; 84403; 84443; 85025; 86038; 86431; 86480; 87390

== ENCOUNTER → 2024-05-18 | Outpatient (CLI) | payer MEDICARE ==
--- NOTE | 2024-05-19 00:08 | US ---
EXAMINATION TYPE: US liver DATE OF EXAM: 05/18/2024 COMPARISON: CT 2023, US 2022 CLINICAL INDICATION: Male, 48 years old with history of K70.30 ALCOHOLIC CIRRHOSIS; TECHNIQUE: Multiple sonographic images of the right upper quadrant are obtained. FINDINGS: EXAM MEASUREMENTS: Liver Length: 12.8 cm Gallbladder Wall: 0.2 cm CBD: 0.3 cm Right Kidney: 10.2 x 6.0 x 5.4 cm Difficult and limited study due to overlying bowel gas Pancreas: obscured by overlying midline bowel gas Liver: limited visualization, nodular contour, heterogeneous course echotexture Gallbladder: limited visualization, stones and sludge seen Evidence for sonographic Warner's sign: no CBD: visualized portions wnl, limited by overlying bowel gas Right Kidney: wnl IMPRESSION: 1. Cholelithiasis.
== END | disposition home or self-care (01) ==
LOC: RADUSWWP 09:03
PROVIDERS: ATTEND Internal Medicine Gastroenterology
DX: K80.20 Calculus of gallbladder without cholecystitis without obstruction (principal); K70.30 Alcoholic cirrhosis of liver without ascites
CPT/HCPCS: 76705

== ENCOUNTER 2024-08-09 07:05 | Day surgery (SDC) | payer MEDICARE ==
[2024-08-08 08:24] VITALS: BMI 29.1
[~2024-08-09 07:05] MED LIST: LIDOCAINE 1% (10MG/ML) FOR IV START INTRADERMA PRN
[2024-08-09] MEDS: IV FLUID CONTINUATION 1,000 ML IV ONE (07:38)
[2024-08-09 07:41] VITALS: RESP 18; TEMP 96.9
[2024-08-09] MEDS: LACTATED RINGERS 1,000 ML IV SCH (07:49)
[2024-08-09] MEDS ORDERED: PROPOFOL 10 MG/ML 20 ML VIAL IV ONE (07:57)
--- NOTE | 2024-08-09 08:03 | P.PCN ---
Date of Procedure: 08/09/24 Procedure(s) Performed: BRIEF HISTORY: Patient is a 48-year-old, pleasant, pleasant white male with history of alcoholic cirrhosis of the liver and history of esophageal varices scheduled for an upper endoscopy for esophageal variceal ligation. He did have an upper GI bleed in December of this year and underwent EGD with variceal ligation at [facility]. Has been maintained on Inderal 60 mg daily.. PROCEDURE PERFORMED: Esophagogastroduodenoscopy with variceal ligation. PREOPERATIVE DIAGNOSIS: Follow-up esophageal varices. IV sedation per anesthesia. PROCEDURE: After informed consent was obtained, the patient was brought into the endoscopy unit. IV sedation was administered by Anesthesia under continuous monitoring. Initially the Olympus GIF-140 video endoscope was inserted into the mouth. Esophagus intubated without any difficulty. It was gradually advanced into the stomach and duodenum and carefully examined. The bulb and the second part of the duodenum appeared normal. The scope at this time was withdrawn to the stomach, adequately insufflated with air, and upon careful examination, mucosa of the antrum, appeared normal. Mucosa of the body, cardia and the fundus had congested appearing mucosa consistent with moderate to severe portal hypertensive gastropathy. No gastric varices identified.. The scope was then withdrawn into the esophagus. The GE junction was located at 39 cm from the incisors. There were large distal and mid esophageal varices identified. At t his time the scope was removed and esophageal variceal ligation equipment was introduced onto the tip of the scope and esophagus were intubated without any difficulty and was gradually advanced into the distal esophagus. A total of 7 points were deployed in a spiral fashion starting from the distal esophagus to mid esophagus and the patient tolerated the procedure well. IMPRESSION: 1. Large mid and distal esophageal varices status post variceal ligation as described above. 2. Moderate to severe portal hypertensive gastropathy. RECOMMENDATIONS: The findings of this examination were discussed with the patient as well as his family. He was advised to be on a soft diet. Continue with Inderal 60 mg daily. Will plan a repeat upper endoscopy with variceal ligation in 2 months..
[2024-08-09 08:25] VITALS: BP 122/70; PULSE 80
== END 2024-08-09 08:38 | disposition home or self-care (01) ==
LOC: ORWHC2ENDO 07:05
PROVIDERS: ATTEND Internal Medicine Gastroenterology
DX: I85.00 Esophageal varices without bleeding
CPT/HCPCS: 43244

== ENCOUNTER → 2024-11-30 | Outpatient (CLI) | payer MEDICARE ==
--- NOTE | 2024-11-30 08:10 | US ---
EXAMINATION TYPE: US liver DATE OF EXAM: 11/30/2024 COMPARISON: Multiple ultrasound liver with most recent 05/18/2024 CLINICAL INDICATION: Male, 49 years old with history of K70.30 ALCOHOLIC CIRRHOSIS OF LIVER WITHOUT A SCITE; known cirrhosis TECHNIQUE: Grayscale and color Doppler imaging of the right upper quadrant was performed. FINDINGS: EXAM MEASUREMENTS: Liver Length: 11.5 cm Gallbladder Wall: 0.2 cm CBD: 0.5 cm Right Kidney: 10.1 x 3.9 x 5.6cm Pancreas: not seen, bowel gas Liver: nodular, coarse echotexture Gallbladder: single dependant stone seen in one sagittal image Evidence for sonographic Warner's sign: no CBD: wnl Right Kidney: wnl The pancreas is obscured by overlying bowel gas. The liver demonstrates a nodular coarsened echotextu re. This appears limits evaluation for small intrahepatic masses. No gross evidence of mass. Single d ependent gallstone identified. No wall thickening or surrounding fluid. Negative sonographic Warner s ign. Common bile duct is within normal limits. Right kidney demonstrates no hydronephrosis, shadowing calculi, or solid mass. No visualized ascites within the right upper quadrant. IMPRESSION: 1. Cirrhotic liver morphology without focal lesion identified. 2. Cholelithiasis. [facility], , 11/30/2024 8:08 AM
[2024-11-30 15:03] LABS: HCT 40.1 % (39.6-50.0); HGB 13.6 g/dL (13.0-17.0); Immature Platelet Fraction 10.3 % (1.1-6.1); MCH 35.5 pg (27.0-32.0); MCHC 33.9 g/dL (32.0-37.0); MCV 104.7 FL (80.0-97.0); Mean Platelet Volume 13.1 FL (9.5-12.2); NRBC Per 100 WBC 0 X 10*3/uL (0.00-0.01); Platelet Count 49 X 10*3/uL (140-440); RBC 3.83 X 10*6/uL (4.40-5.60); RDW 13.7 % (11.5-14.5); WBC 2.46 X 10*3/uL (4.50-10.00)
[2024-11-30 15:07] LABS: ALT 42 U/L (10-49); AST 52 U/L (14-35); Albumin 3.2 g/dL (3.8-4.9); Albumin/Globulin Ratio 1.07 Ratio (1.60-3.17); Alkaline Phosphatase 138 U/L (41-126); Calcium 8.6 mg/dL (8.7-10.3); Carbon Dioxide 22.1 mmol/L (21.6-31.8); Chloride 111 mmol/L (96-109); Glucose 121 mg/dL (70-110); Potassium 3.9 mmol/L (3.5-5.5); Sodium 141 mmol/L (135-145); Total Bilirubin 1.7 mg/dL (0.3-1.2); Total Protein 6.2 g/dL (6.2-8.2)
[2024-11-30 16:27] LABS: Basophils # (A) 0.02 X 10*3/uL (0.00-0.10); Basophils % (A) 0.8 %; Elliptocytes 2+ (None Seen); Eosinophils # (A) 0.13 X 10*3/uL (0.04-0.35); Eosinophils % (A) 5.3 %; Immature Grans, Automated 0 %; Lymphocytes # (A) 0.34 X 10*3/uL (0.90-5.00); Lymphocytes % (A) 13.8 %; Macrocytosis (M) 2+ (None Seen); Monocytes # (A) 0.25 X 10*3/uL (0.20-1.00); Monocytes % (A) 10.2 %; Neutrophils # (A) 1.72 X 10*3/uL (1.80-7.70); Neutrophils % (A) 69.9 %
== END | disposition home or self-care (01) ==
LOC: RADUSWWP 07:33
PROVIDERS: ATTEND Internal Medicine Gastroenterology
DX: K80.20 Calculus of gallbladder without cholecystitis without obstruction (principal); K70.30 Alcoholic cirrhosis of liver without ascites
CPT/HCPCS: 36415; 76705; 80053; 82105; 85025

== ENCOUNTER → 2025-04-25 | Outpatient (CLI) | payer MEDICARE ==
[2025-04-25 15:28] LABS: INR 1.4 (<1.2); Prothrombin Time 14.4 sec (10.0-12.5)
[2025-04-25 19:44] LABS: Basophils # (A) 0.03 X 10*3/uL (0.00-0.10); Basophils % (A) 1.1 %; Eosinophils # (A) 0.13 X 10*3/uL (0.04-0.35); Eosinophils % (A) 4.9 %; HCT 39.8 % (39.6-50.0); HGB 13.4 g/dL (13.0-17.0); Immature Platelet Fraction 29.6 % (1.1-6.1); Lymphocytes % (A) 15.2 %; MCH 35.5 pg (27.0-32.0); MCHC 33.7 g/dL (32.0-37.0); MCV 105.6 FL (80.0-97.0); Monocytes # (A) 0.27 X 10*3/uL (0.20-1.00); Monocytes % (A) 10.3 %; NRBC Per 100 WBC 0 X 10*3/uL (0.00-0.01); Neutrophils # (A) 1.79 X 10*3/uL (1.80-7.70); Neutrophils % (A) 68.1 %; Platelet Count 11 X 10*3/uL (140-440); RBC 3.77 X 10*6/uL (4.40-5.60); RDW 14.2 % (11.5-14.5); WBC 2.63 X 10*3/uL (4.50-10.00)
[2025-04-25 20:21] LABS: ALT 46 U/L (10-49); AST 55 U/L (14-35); Albumin 3.1 g/dL (3.8-4.9); Albumin/Globulin Ratio 0.91 Ratio (1.60-3.17); Alkaline Phosphatase 143 U/L (41-126); BUN/Creat Ratio 19.67 Ratio (12.00-20.00); Bilirubin, Conjugated 0.73 mg/dL (0.20-0.40); Bilirubin,Unconjugated 0.87 mg/dL (0.20-1.00); Blood Urea Nitrogen 17.7 mg/dL (9.0-27.0); Calcium 8.3 mg/dL (8.7-10.3); Carbon Dioxide 20.4 mmol/L (21.6-31.8); Chloride 111 mmol/L (96-109); Globulin 3.4 g/dL (1.6-3.3); Glucose 116 mg/dL (70-110); Potassium 3.9 mmol/L (3.5-5.5); Sodium 141 mmol/L (135-145); Total Bilirubin 1.6 mg/dL (0.3-1.2); Total Protein 6.5 g/dL (6.2-8.2)
== END | disposition home or self-care (01) ==
LOC: LABWHC1 14:44
PROVIDERS: ATTEND Nurse Practitioner Family
DX: D69.6 Thrombocytopenia, unspecified (principal)
CPT/HCPCS: 36415; 80053; 82248; 82607; 82746; 85025; 85610